=== PATIENT | female | born 1955 | race Caucasian/White ===

== ENCOUNTER 2017-10-22 23:45 | Inpatient (IN) | payer BC ==
[2017-10-23] MEDS ORDERED: Sodium Chloride 0.9% 1,000 ML IV ONE ×2 (00:25→05:21)
[2017-10-23] MEDS ORDERED: Insulin Regular, Human 100 Units/ML 3 ML Vial IV STA (00:47)
--- NOTE | 2017-10-23 01:55 | EDM.PDOC ---
ED HPI GENERAL MEDICAL PROBLEM - General Chief Complaint: Diabetic Complaint Stated Complaint: HIGH BLOOD SUGAR Time Seen by Provider: 10/23/17 00:18 Source of Information: Reports: Patient, Family () History Limitations: Reports: Altered Mental Status (Somewhat confused. Poor historian.) - History of Present Illness INITIAL COMMENTS - FREE TEXT/NARRATIVE: The patient states that she is a type II diabetic with an insulin pump. She checks her blood sugars about every other day, with normal readings approximately 180-200. She states that her blood sugars have been in the upper 300s over the past 2 weeks, and tonight was too high to count. Blood sugar was 587 on her 's glucometer. She states that she thought that her insulin pump was not working. Of note, the patient does not know how to operate or interrogate her insulin pump. She reports that she has had occasional nausea, but no emesis. She has not had a cough. No shortness of breath, but she may have experienced some dyspnea on exertion. She reports lightheadedness, and her states that she fell twice this week. She acknowledges both polydipsia and polyuria urea. She denies dysuria. No recent fever. The patient states that she has not previously had significantly elevated blood glucoses, and has never experienced diabetic ketoacidosis. Her PCP is Dr. March. Her Remodeler is Dr. Quiroz. Her Concrete Fence Builder is Dr. Banks. - Related Data Allergies Allergy/AdvReac Type Severity Reaction Status Date / Time latex Allergy Unknown Rash Verified 10/23/17 00:03 Iodinated Contrast- Oral and Allergy Difficulty Verified 10/23/17 00:03 IV Dye Breathing [Iodinated Contrast Media - IV Dye] amoxicillin trihydrate AdvReac Unknown Vomiting Verified 10/23/17 00:03 [From Augmentin] potassium clavulanate AdvReac Unknown Vomiting Verified 10/23/17 00:03 [From Augmentin] Home Meds: Home Meds Aloe Vera 25 mg PO DAILY 01/08/14 [History] DULoxetine [Cymbalta] 60 mg PO BID 01/08/14 [History] Furosemide [Lasix] 20 mg PO DAILY 01/08/14 [History] Nadolol [Naldol] 20 mg PO DAILY 01/08/14 [History] Pantoprazole [ProTONIX] 40 mg PO BID 01/08/14 [History] Spironolactone 50 mg PO DAILY 01/08/14 [History] Ursodiol 600 cap PO BID 01/08/14 [History] metroNIDAZOLE [Metronidazole] 500 mg PO DAILY 01/08/14 [History] Lyrica. 150 mg PO BID 05/12/14 [History] Nortriptyline 25 mg PO BEDTIME 05/12/14 [History] L Gasseri/B Bifidum/B Longum [[employer] Capsule] 1 cap PO DAILY 03/21 [History] Rifaximin [Xifaxan] 550 mg PO BID 01/11/15 [History] Novalog Pump 0 units INJECT ASDIRECTED 10/03/15 [History] Warfarin Sodium [Jantoven] 5 mg PO DAILY 10/23/17 [History] Past Medical History Cardiovascular History: Reports: Hypertension Gastrointestinal History: Reports: Cirrhosis, GERD, Other (See Below) ( Esophageal varices) Neurological History: Reports: Neuropathy, Diabetic Psychiatric History: Reports: Depression Endocrine/Metabolic History: Reports: Diabetes, Type II (x 2007), Obesity/BMI 30 + Hematologic History: Reports: Anticoagulation Therapy (Hypercoagulable) - Past Surgical History GI Surgical History: Reports: Appendectomy, Cholecystectomy, Hernia, Abdominal ( x 2), Lysis of Adhesions (x 3), Other (See Below) (Esophageal varices banding x 1) Female Surgical History: Reports: Section (x 1), Hysterectomy, Salpingo-Oophorectomy Social & Family History - Tobacco Use Smoking Status *Q: Former Smoker Years of Tobacco use: 26 Packs/Tins Daily: 3 Month Tobacco Last Used: Quit 2001 Second Hand Smoke Exposure: No - Caffeine Use Caffeine Use: Reports: None - Alcohol Use Alcohol Use History: No Days Per Week of Alcohol Use: 0 Number of Drinks Per Day: 0 Total Drinks Per Week: 0 - Recreational Drug Use Recreational Drug Use: No - Living Situation & Occupation Living situation: Reports: , with Spouse Occupation: Unemployed ED ROS GENERAL - Review of Systems Review Of Systems: ROS reveals no pertinent complaints other than HPI. ED EXAM GENERAL NO PERIP PULSE - Physical Exam Exam: See Below Exam Limited By: No Limitations General Appearance: Alert, WD/WN, No Apparent Distress Eye Exam: Bilateral Eye: Normal Inspection Ears: Normal External Exam, Hearing Grossly Normal Nose: Normal Inspection, No Blood Throat/Mouth: Normal Inspection, Normal Lips, Normal Voice, No Airway Compromise , Other (Interventionalists) Head: Atraumatic, Normocephalic Neck: Normal Inspection, Full Range of Motion Respiratory/Chest: No Respiratory Distress, Lungs Clear, Normal Breath Sounds, No Accessory Muscle Use Cardiovascular: Normal Peripheral Pulses, Regular Rate, Rhythm, No Gallop, No JVD, No Murmur, No Rub GI/Abdominal: Normal Bowel Sounds, Soft, Non-Tender, No Organomegaly, No Distention, No Abnormal Bruit, No Mass, Other (Obese) (Female) Exam: Deferred Rectal (Female) Exam: Deferred Back Exam: Normal Inspection, Full Range of Motion, NT Extremities: Normal Inspection, Normal Range of Motion, No Pedal Edema, Normal Capillary Refill Neurological: Alert, Oriented, No Motor/Sensory Deficits, Confused, Slow to Respond Psychiatric: Normal Affect Skin Exam: Warm, Dry, Intact, Normal Color, No Rash EKG INTERPRETATION EKG Date: 10/23/17 Time: 00:42 Rhythm: NSR Rate (Beats/Min): 70 [place]: Normal P-Wave: Present QRS: Normal ST-T: Normal QT: Normal Comparison: No Change (08/27/2016) Course - Vital Signs Last Recorded V/S: Last Vital Signs Temp 36.2 C 10/22/17 23:59 Pulse 69 10/22/17 23:59 Resp 17 10/22/17 23:59 BP 118/59 L 10/22/17 23:59 Pulse Ox 95 10/22/17 23:59 Orthostatic Blood Pressure [ 68/58 Standing] Orthostatic Blood Pressure [ 100/41 Sitting] Orthostatic Blood Pressure [ 99/39 Supine] - Orders/Labs/Meds Orders: Active Orders 24 hr Category Date Time Status Accu Check [Blood Glucose Check, Bedside] [] ONETIME Care 10/23/17 00:22 Active EKG Documentation Completion [] STAT Care 10/23/17 00:24 Active Orthostatic Vital Signs [] STAT Care 10/23/17 00:24 Active POC Glucose [Blood Glucose Check, Bedside] [] ONETIME Care 10/23/17 02:19 Active CULTURE URINE [] Stat Lab 10/23/17 02:15 Results Medication Orders Duloxetine HCl (Cymbalta) 60 mg PO BID PAUL Furosemide (Lasix) 20 mg PO DAILY [facility] Sodium Chloride (Normal Saline) 1,000 mls @ 200 mls/hr IV ASDIRECTED [facility] Last Admin: 10/23/17 07:38 Dose: 200 mls/hr Ibuprofen (Motrin) 400 mg PO Q6H PRN PRN Reason: Pain (mild 1-3) Insulin Aspart (Novolog) 0 unit SUBCUT QIDACANDBED PAUL PRN Reason: Protocol Lactulose (Cephulac) 20 gm PO TID PAUL Lorazepam (Ativan) 0.5 mg IVPUSH Q8H PRN PRN Reason: Anxiety Morphine Sulfate (Morphine) 1 mg IVPUSH Q6HR PRN PRN Reason: Pain Nadolol (Naldol) 20 mg PO DAILY PAUL Nortriptyline HCl (Nortriptyline) 25 mg PO BEDTIME PAUL Ondansetron HCl (Zofran Odt) 4 mg PO Q4H PRN PRN Reason: nausea, able to take PO Ondansetron HCl (Zofran) 4 mg IV Q4H PRN PRN Reason: Nausea/Vomiting Pantoprazole Sodium (Protonix) 40 mg PO BID [facility] Ursodiol 600mg Cap 0 each PO BID PALU Pregabalin (Lyrica) 150 mg PO BID PAUL Rifaximin (Xifaxan) 550 mg PO BID PAUL Spironolactone (Aldactone) 50 mg PO DAILY PAUL Temazepam (Restoril) 7.5 mg PO BEDTIME PRN PRN Reason: Sleep Labs: Laboratory Tests 10/23/17 10/23/17 10/23/17 Range/Units 00:18 00:18 00:18 WBC 2.19 L* (3.98-10.04) K/mm3 RBC 4.46 (3.98-5.22) M/mm3 Hgb 13.0 (11.2-15.7) gm/L Hct 38.5 (34.1-44.9) % MCV 86.3 (79.4-94.8) fl MCH 29.1 (25.6-32.2) pg MCHC 33.8 (32.2-35.5) g/dl RDW Std Deviation 53.2 H (36.4-46.3) fL Plt Count 78 L (182-369) K/mm3 MPV 11.2 (9.4-12.3) fl Neutrophils % (Manual) 57 (40-60) % Band Neutrophils % 0 (0-10) % Lymphocytes % (Manual) 36 (20-40) % Atypical Lymphs % 0 % Monocytes % (Manual) 2 (2-10) % Eosinophils % (Manual) 4 (0.7-5.8) % Basophils % (Manual) 1 (0.1-1.2) Platelet Estimate Decreased RBC Morph Comment Normal Puncture Site ABG pH (7.35-7.45) ABG pCO2 (35.0-45.0) mmHg ABG pO2 (80.0-100.0) mmHg ABG HCO3 (22.0-26.0) meq/L ABG O2 Saturation (96.0-97.0) % ABG Base Excess (-2-2.0) [place] Test A-a Gradient mmHg O2 Delivery Device Oxygen Flow Rate FiO2 (21.00-100.00) % Sodium 129 L (136-145) mEq/L Potassium 3.8 (3.5-5.1) mEq/L Chloride 94 L (98-107) mEq/L Carbon Dioxide 30 (21-32) mEq/L Anion Gap 8.8 (5-15) BUN 17 (7-18) mg/dL Creatinine 1.9 H (0.55-1.02) mg/dL Est Cr Clr Drug Dosing 31.76 mL/min Estimated GFR (MDRD) 27 (>60) mL/min BUN/Creatinine Ratio 8.9 L (14-18) Glucose 601 H* (74-106) mg/dL Lactic Acid (0.4-2.0) mmol/L Calcium 9.4 (8.5-10.1) mg/dL Magnesium 2.0 (1.8-2.4) mg/dl Total Bilirubin 3.1 H (0.2-1.0) mg/dL AST 33 (15-37) U/L ALT 25 (14-59) U/L Alkaline Phosphatase 215 H (46-116) U/L Ammonia (11-32) umol/L Total Protein 8.9 H (6.4-8.2) g/dl Albumin 3.0 L (3.4-5.0) g/dl Globulin 5.9 gm/dL Albumin/Globulin Ratio 0.5 L (1-2) Urine Color (Yellow) Urine Appearance (Clear) Urine pH (5.0-8.0) Ur Specific [place] (1.005-1.030) Urine Protein (Negative) Urine Glucose (UA) (Negative) Urine Ketones (Negative) Urine Occult Blood (Negative) Urine Nitrite (Negative) Urine Bilirubin (Negative) Urine Urobilinogen (0.2-1.0) Ur Leukocyte Esterase (Negative) Urine RBC (0-5) /hpf Urine WBC (0-5) /hpf Ur Epithelial Cells (0-5) /hpf Urine Bacteria (FEW) /hpf Urine Mucus (FEW) /hpf Ketones 0.27 (0.0-0.3) mM 10/23/17 10/23/17 10/23/17 Range/Units 00:50 00:54 02:15 WBC (3.98-10.04) K/mm3 RBC (3.98-5.22) M/mm3 Hgb (11.2-15.7) gm/L Hct (34.1-44.9) % MCV (79.4-94.8) fl MCH (25.6-32.2) pg MCHC (32.2-35.5) g/dl RDW Std Deviation (36.4-46.3) fL Plt Count (182-369) K/mm3 MPV (9.4-12.3) fl Neutrophils % (Manual) (40-60) % Band Neutrophils % (0-10) % Lymphocytes % (Manual) (20-40) % Atypical Lymphs % % Monocytes % (Manual) (2-10) % Eosinophils % (Manual) (0.7-5.8) % Basophils % (Manual) (0.1-1.2) Platelet Estimate RBC Morph Comment Puncture Site Lt radial ABG pH 7.43 (7.35-7.45) ABG pCO2 42.7 (35.0-45.0) mmHg ABG pO2 59.0 L (80.0-100.0) mmHg ABG HCO3 28.0 H (22.0-26.0) meq/L ABG O2 Saturation 92.3 L (96.0-97.0) % ABG Base Excess 3.7 H (-2-2.0) [place] Test Positive A-a Gradient 22 mmHg O2 Delivery Device Room air Oxygen Flow Rate 0.0 FiO2 0.21 L (21.00-100.00) % Sodium (136-145) mEq/L Potassium (3.5-5.1) mEq/L Chloride (98-107) mEq/L Carbon Dioxide (21-32) mEq/L Anion Gap (5-15) BUN (7-18) mg/dL Creatinine (0.55-1.02) mg/dL Est Cr Clr Drug Dosing mL/min Estimated GFR (MDRD) (>60) mL/min BUN/Creatinine Ratio (14-18) Glucose (74-106) mg/dL Lactic Acid 1.8 (0.4-2.0) mmol/L Calcium (8.5-10.1) mg/dL Magnesium (1.8-2.4) mg/dl Total Bilirubin (0.2-1.0) mg/dL AST (15-37) U/L ALT (14-59) U/L Alkaline Phosphatase (46-116) U/L Ammonia (11-32) umol/L Total Protein (6.4-8.2) g/dl Albumin (3.4-5.0) g/dl Globulin gm/dL Albumin/Globulin Ratio (1-2) Urine Color Yellow (Yellow) Urine Appearance Clear (Clear) Urine pH 6.5 (5.0-8.0) Ur Specific [place] 1.015 (1.005-1.030) Urine Protein Negative (Negative) Urine Glucose (UA) 2+ H (Negative) Urine Ketones Negative (Negative) Urine Occult Blood Negative (Negative) Urine Nitrite Positive H (Negative) Urine Bilirubin Negative (Negative) Urine Urobilinogen 1.0 (0.2-1.0) Ur Leukocyte Esterase Negative (Negative) Urine RBC Not seen (0-5) /hpf Urine WBC 0-5 (0-5) /hpf Ur Epithelial Cells 0-5 (0-5) /hpf Urine Bacteria Moderate H (FEW) /hpf Urine Mucus Not seen (FEW) /hpf Ketones (0.0-0.3) mM 10/23/17 10/23/17 10/23/17 Range/Units 02:28 02:28 04:20 WBC (3.98-10.04) K/mm3 RBC (3.98-5.22) M/mm3 Hgb (11.2-15.7) gm/L Hct (34.1-44.9) % MCV (79.4-94.8) fl MCH (25.6-32.2) pg MCHC (32.2-35.5) g/dl RDW Std Deviation (36.4-46.3) fL Plt Count (182-369) K/mm3 MPV (9.4-12.3) fl Neutrophils % (Manual) (40-60) % Band Neutrophils % (0-10) % Lymphocytes % (Manual) (20-40) % Atypical Lymphs % % Monocytes % (Manual) (2-10) % Eosinophils % (Manual) (0.7-5.8) % Basophils % (Manual) (0.1-1.2) Platelet Estimate RBC Morph Comment Puncture Site ABG pH (7.35-7.45) ABG pCO2 (35.0-45.0) mmHg ABG pO2 (80.0-100.0) mmHg ABG HCO3 (22.0-26.0) meq/L ABG O2 Saturation (96.0-97.0) % ABG Base Excess (-2-2.0) [place] Test A-a Gradient mmHg O2 Delivery Device Oxygen Flow Rate FiO2 (21.00-100.00) % Sodium (136-145) mEq/L Potassium (3.5-5.1) mEq/L Chloride (98-107) mEq/L Carbon Dioxide (21-32) mEq/L Anion Gap (5-15) BUN (7-18) mg/dL Creatinine (0.55-1.02) mg/dL Est Cr Clr Drug Dosing mL/min Estimated GFR (MDRD) (>60) mL/min BUN/Creatinine Ratio (14-18) Glucose 386 H 421 H (74-106) mg/dL Lactic Acid (0.4-2.0) mmol/L Calcium (8.5-10.1) mg/dL Magnesium (1.8-2.4) mg/dl Total Bilirubin (0.2-1.0) mg/dL AST (15-37) U/L ALT (14-59) U/L Alkaline Phosphatase (46-116) U/L Ammonia 65 H (11-32) umol/L Total Protein (6.4-8.2) g/dl Albumin (3.4-5.0) g/dl Globulin gm/dL Albumin/Globulin Ratio (1-2) Urine Color (Yellow) Urine Appearance (Clear) Urine pH (5.0-8.0) Ur Specific [place] (1.005-1.030) Urine Protein (Negative) Urine Glucose (UA) (Negative) Urine Ketones (Negative) Urine Occult Blood (Negative) Urine Nitrite (Negative) Urine Bilirubin (Negative) Urine Urobilinogen (0.2-1.0) Ur Leukocyte Esterase (Negative) Urine RBC (0-5) /hpf Urine WBC (0-5) /hpf Ur Epithelial Cells (0-5) /hpf Urine Bacteria (FEW) /hpf Urine Mucus (FEW) /hpf Ketones (0.0-0.3) mM Meds: Medications Generic Name Dose Route Start Last Admin Trade Name Freq PRN Reason Stop Dose Admin Duloxetine HCl 60 mg 10/23/17 09:00 Cymbalta PO BID PAUL Furosemide 20 mg 10/23/17 09:00 Lasix PO DAILY [facility] Sodium Chloride 1,000 mls @ 200 mls/hr 10/23/17 06:45 10/23/17 07:38 Normal Saline IV 200 mls/hr ASDIRECTED PAUL Administration Ibuprofen 400 mg 10/23/17 06:24 Motrin PO Q6H PRN Pain (mild 1-3) Insulin Aspart 0 unit 10/23/17 07:45 Novolog SUBCUT QIDACANDBED [facility] Protocol Lactulose 20 gm 10/23/17 09:00 Cephulac PO TID PAUL Lorazepam 0.5 mg 10/23/17 07:22 Ativan IVPUSH Q8H PRN Anxiety Morphine Sulfate 1 mg 10/23/17 07:22 Morphine IVPUSH Q6HR PRN Pain Nadolol 20 mg 10/23/17 09:00 Naldol PO DAILY [facility] Nortriptyline HCl 25 mg 10/23/17 21:00 Nortriptyline PO BEDTIME PAUL Ondansetron HCl 4 mg 10/23/17 06:24 Zofran Odt PO Q4H PRN nausea, able to take PO Ondansetron HCl 4 mg 10/23/17 06:24 Zofran IV Q4H PRN Nausea/Vomiting Pantoprazole Sodium 40 mg 10/23/17 09:00 Protonix PO BID [facility] Ursodiol 600mg Cap 0 each 10/23/17 09:00 PO BID PAUL Pregabalin 150 mg 10/23/17 09:00 Lyrica PO BID PAUL Rifaximin 550 mg 10/23/17 09:00 Xifaxan PO BID PAUL Spironolactone 50 mg 10/23/17 09:00 Aldactone PO DAILY PAUL Temazepam 7.5 mg 10/23/17 06:24 Restoril PO BEDTIME PRN Sleep Discontinued Medications Generic Name Dose Route Start Last Admin Trade Name Freq PRN Reason Stop Dose Admin Sodium Chloride 1,000 mls @ 999 mls/hr 10/23/17 00:25 10/23/17 00:53 Normal Saline IV 10/23/17 01:25 999 mls/hr ONETIME ONE Administration Sodium Chloride 1,000 mls @ 999 mls/hr 10/23/17 05:21 10/23/17 05:30 Normal Saline IV 10/23/17 06:21 999 mls/hr ONETIME ONE Administration Insulin Human Regular 10 unit 10/23/17 00:47 10/23/17 00:59 Humulin R IV 10/23/17 00:48 10 unit ONETIME STA Administration Insulin Human Regular 5 unit 10/23/17 05:20 10/23/17 05:30 Humulin R IV 10/23/17 05:21 5 units ONETIME ONE Administration Lactulose 20 gm 10/23/17 03:02 10/23/17 03:49 Cephulac PO 10/23/17 03:03 20 gm ONETIME ONE Administration - Re-Assessments/Exams Free Text/Narrative Re-Assessment/Exam: 10/23/17 01:54 Two-view chest radiograph appears to be grossly normal. Cardiac silhouette is within normal limits. No pulmonary vascular congestion. No pleural effusions. No focal infiltrate. No pneumothorax. Formal read per the Radiologist pending. 10/23/17 02:04 The patient is orthostatic. IV fluid has already been ordered. 10/23/17 03:04 The patient's ammonia level is elevated at 65. This is the highest level she has had on record. I have ordered lactulose 20 mg po. The patient's WBC count is depressed at 2.19, with platelets depressed at 78K. These are both likely due to her cirrhosis. The patient's sodium returns depressed at 129, however, it corrects to 135 due to a blood sugar of 601. The patient's creatinine is elevated at 1.9. Reviewing prior lab results, I see that her creatinine has been steadily increasing. This could be due to diabetic nephropathy, but could also be due to hepatorenal syndrome. 10/23/17 03:16 The patient's blood glucose at 00:18 was 601. At 02:28, it is down to 386. I have asked the nurse to discontinue (or not start) the insulin drip. The patient's urinalysis demonstrates nitrate positive and moderate bacteria, but no WBCs or leukocyte esterase. It is unclear if this represents a urinary tract infection. I have ordered a urine culture, but I am not going to start her on antibiotics at this time, as she has no urinary symptoms. 10/23/17 03:28 Test results discussed with the patient and her . I'm recommending admission to the hospital for treatment of hyperglycemia and hepatic encephalopathy. The patient and her are agreeable. Case discussed with Dr. Byrd at 03:22. She accepts the patient for admission to the medical floor. Departure - Departure Time of Disposition: 03:23 Disposition: Admitted As Inpatient 68 Condition: Fair Clinical Impression: Hepatic encephalopathy Hyperglycemia due to type 2 diabetes mellitus Qualifiers: Diabetes mellitus intermediate manager insulin use: with correction use Qualified Code(s): E11.65 - Type 2 diabetes mellitus with hyperglycemia - Discharge Information - My Orders Last 24 Hours: My Active Orders 10/23/17 00:22 Accu Check [Blood Glucose Check, Bedside] [RC] ONETIME 10/23/17 00:24 EKG Documentation Completion [RC] STAT Orthostatic Vital Signs [RC] STAT 10/23/17 02:15 CULTURE URINE [RM] Stat 10/23/17 02:19 POC Glucose [Blood Glucose Check, Bedside] [RC] ONETIME - Assessment/Plan Last 24 Hours: My Active Orders 10/23/17 00:22 Accu Check [Blood Glucose Check, Bedside] [RC] ONETIME 10/23/17 00:24 EKG Documentation Completion [RC] STAT Orthostatic Vital Signs [RC] STAT 10/23/17 02:15 CULTURE URINE [RM] Stat 10/23/17 02:19 POC Glucose [Blood Glucose Check, Bedside] [RC] ONETIME
[2017-10-23] MEDS ORDERED: Lactulose Soln 10 GM/15 ML 30 ML UD Cup PO ONE (03:02)
[2017-10-23] MEDS ORDERED: Insulin Regular, Human 100 Units/ML 3 ML Vial IV ONE (05:20)
[2017-10-23] MEDS ORDERED: Ibuprofen 400 MG Tab PO PRN (06:24)
[2017-10-23] MEDS ORDERED: Ondansetron 4 MG Tab.DIS PO PRN (06:24)
[2017-10-23] MEDS ORDERED: Ondansetron 4 MG/2 ML SDV IV PRN (06:24)
[2017-10-23] MEDS ORDERED: Temazepam 7.5 MG Cap PO PRN (06:24)
--- NOTE | 2017-10-23 06:36 | PCM.HP ---
H&P History of Present Illness - General Date of Service: 10/23/17 Admit Problem/Dx: Admission Diagnosis/Problem Admission Diagnosis/Problem Hyperglycemia Source of Information: Patient, Other (ED notes) History Limitations: Reports: Altered Mental Status (converses but is mildly confused--intermittent) - History of Present Illness Initial Comments - Free Text/Narative: Narcisa is a 62yo female admitted in isotope technologist hours from ED for hyperglycemia with blood glucose >600 upon initial presentation to ED. She also has cirrhosis of the liver, PRATT etiology stated per patient since the s, with encephalopathy noted in ED, ammonia level was 65. She denies recent illness, no increased coughing, SOB, F/C/S, no N/V/D. She does have rt sided abd pain most days that has not worsened over the past week that her blood sugars have been elevated. She has had increased falls at home the past week, attributes it to peripheral neuropathy in her legs. is her care provider at home. Patient has insulin pump but she states was not working; she also admits that she is not sure how to troubleshoot her pump if needed. She see's Dr. March at [facility] for primary care and Zarina March for CDE. She see's EVITA Santos in [place]- she is unsure of her last visit- usually sees him every 6 months and thinks she may be due to see him "in a couple of weeks" but is not sure if appt is scheduled. She is very slow to respond. When asked if she feels confused and can't find her words she states "yes, I feel like that a lot lately". Does admit that she does not take her lactulose as she does not like to have loose stools. She is tired as she did not sleep much with isotope technologist admission. She is hungry and eating breakfast. Patient is Full Code status PCP: Dr. March GI: Dr. Banks - Related Data Allergies/Adverse Reactions: Allergies Allergy/AdvReac Type Severity Reaction Status Date / Time latex Allergy Unknown Rash Verified 10/23/17 00:03 Iodinated Contrast- Oral and Allergy Difficulty Verified 10/23/17 00:03 IV Dye Breathing [Iodinated Contrast Media - IV Dye] amoxicillin trihydrate AdvReac Unknown Vomiting Verified 10/23/17 00:03 [From Augmentin] potassium clavulanate AdvReac Unknown Vomiting Verified 10/23/17 00:03 [From Augmentin] Home Medications: Home Meds Aloe Vera 25 mg PO DAILY 01/08/14 [History] DULoxetine [Cymbalta] 60 mg PO BID 01/08/14 [History] Furosemide [Lasix] 20 mg PO DAILY 01/08/14 [History] Nadolol [Naldol] 20 mg PO DAILY 01/08/14 [History] Pantoprazole [ProTONIX] 40 mg PO BID 01/08/14 [History] Spironolactone 50 mg PO DAILY 01/08/14 [History] Ursodiol 600 cap PO BID 01/08/14 [History] metroNIDAZOLE [Metronidazole] 500 mg PO DAILY 01/08/14 [History] Lyrica. 150 mg PO BID 05/12/14 [History] Nortriptyline 25 mg PO BEDTIME 05/12/14 [History] L Gasseri/B Bifidum/B Longum [[employer] Capsule] 1 cap PO DAILY 03/21 [History] Rifaximin [Xifaxan] 550 mg PO BID 01/11/15 [History] Novalog Pump 0 units INJECT ASDIRECTED 10/03/15 [History] Warfarin Sodium [Jantoven] 5 mg PO DAILY 10/23/17 [History] Past Medical History Cardiovascular History: Reports: Blood Clots/VTE/DVT, Hypertension Respiratory History: Reports: SOB Gastrointestinal History: Reports: GERD, Other (See Below) Other Gastrointestinal History: cirrohis of the liver Genitourinary History: Reports: Urinary Incontinence Musculoskeletal History: Reports: Arthritis, Fracture Other Neuro History: issues with remembering Psychiatric History: Reports: Depression Endocrine/Metabolic History: Reports: Diabetes, Type II Hematologic History: Reports: Anemia - Infectious Disease History Infectious Disease History: Reports: Chicken Pox, Measles - Past Surgical History Cardiovascular Surgical History: Reports: None GI Surgical History: Reports: Appendectomy, Cholecystectomy Female Surgical History: Reports: Hysterectomy Endocrine Surgical History: Reports: None Neurological Surgical History: Reports: None Musculoskeletal Surgical History: Reports: None Social & Family History - Family History Family Medical History: Noncontributory - Tobacco Use Smoking Status *Q: Former Smoker Years of Tobacco use: 28 Packs/Tins Daily: 2 Used Tobacco, but Quit: Yes Month Tobacco Last Used: 09/2001 Second Hand Smoke Exposure: No - Caffeine Use Caffeine Use: Reports: None - Alcohol Use Days Per Week of Alcohol Use: 0 Number of Drinks Per Day: 0 Total Drinks Per Week: 0 - Recreational Drug Use Recreational Drug Use: No H&P Review of Systems - Review of Systems: Review Of Systems: See Below General: Reports: No Symptoms, Malaise, Weakness, Fatigue. Denies: Fever, Chills, Weight Gain HEENT: Reports: No Symptoms. Denies: Headaches Pulmonary: Reports: No Symptoms. Denies: Shortness of Breath, Cough Cardiovascular: Reports: No Symptoms. Denies: Chest Pain, Palpitations Gastrointestinal: Reports: Abdominal Pain (Rt sided; no worse than usual baseline right sided abd pain). Denies: Black Stool, Bloody Stool, Diarrhea ( does have diarrhea if she takes lactulose- she avoids taking it to avoid loose stools.), Hematochezia, Melena, Vomiting Genitourinary: Reports: No Symptoms Psychiatric: Reports: Confusion (admits is intermittently confused- worsening over the last week) Neurological: Reports: Confusion, Numbness (feet), Paresthesia (feet), Tingling (feet). Denies: Dizziness, Headache Hematologic/Lymphatic: Reports: Anemia (in the past) Exam - Exam Exam: See Below - Vital Signs Vital Signs: Last Vital Signs Temp 97.2 F 10/22/17 23:59 Pulse 69 10/22/17 23:59 Resp 17 10/22/17 23:59 BP 118/59 L 10/22/17 23:59 Pulse Ox 95 10/22/17 23:59 Weight: 220 lb 14.4 oz - Exam Quality Assessment: DVT Prophylaxis General: Alert, Oriented (A&O x 3), Cooperative HEENT: Conjunctiva Clear, EOMI, Hearing Intact, Scleral Icterus (mild) Neck: Supple Lungs: Clear to Auscultation, Normal Respiratory Effort, Decreased Breath Sounds (bases) Cardiovascular: Regular Rate, Regular Rhythm GI/Abdominal Exam: Normal Bowel Sounds, Soft, Tender (generalized upper abdomen , worse to rt side), Other (large/obese). No: Guarding, Rigid, Rebound (Female) Exam: Deferred Rectal (Female) Exam: Deferred Back Exam: Normal Inspection Extremities: Normal Inspection, Normal Capillary Refill, Other (evidence of venous insufficency changes to LE bilat, dark brown patches to shins bilaterally ; minimal trace edema to ankles) Peripheral Pulses: 1+: Dorsalis Pedis (L), Dorsalis Pedis (R) Skin: Warm, Dry, Intact, Other (mild icterus generalized) Neurological: Normal Speech (slow to respond), Normal Tone Neuro Extensive - Mental Status: Alert, Oriented x3, Normal Mood/Affect, Normal Cognition, Memory Loss-Recent Events, Slow Response to Commands Psychiatric: Alert, Normal Affect, Normal Mood, Other (pleasant, answers all questions appropriately, slow to respond and does not know some important/ pertinent information---like how to run her insulin pump, what her A1C is, when she saw or is to see GI next. ) - Patient Data Result Diagrams: 10/23/17 07:20 10/23/17 07:20 *Q Meaningful Use (ADM) - VTE *Q VTE Criteria *Q: - Stroke *Q Stroke Criteria *Q: - AMI *Q AMI Criteria *Q: - Problem List (1) Hyperglycemia due to type 2 diabetes mellitus SNOMED Code(s): 166135959364400 ICD Code: E11.65 - TYPE 2 DIABETES MELLITUS WITH HYPERGLYCEMIA Status: Acute Priority: High Current Visit: Yes Qualifiers: Diabetes mellitus long term acute care registered nurse insulin use: with long term acute care registered nurse use Qualified Code( s): E11.65 - Type 2 diabetes mellitus with hyperglycemia; Z79.4 - termite renewal inspector ( current) use of insulin; Z79.4 - termite renewal inspector (current) use of insulin; Z79.4 - termite renewal inspector (current) use of insulin; Z79.4 - termite renewal inspector (current) use of insulin (2) Hepatic encephalopathy SNOMED Code(s): 10238954 ICD Code: K72.90 - HEPATIC FAILURE, UNSPECIFIED WITHOUT COMA Status: Acute Priority: High Current Visit: Yes (3) CKD (chronic kidney disease) SNOMED Code(s): 657023900 ICD Code: N18.9 - CHRONIC KIDNEY DISEASE, UNSPECIFIED Status: Chronic Priority: Medium Current Visit: Yes (4) Medical non-compliance SNOMED Code(s): 567040837 ICD Code: Z91.19 - PATIENT'S NONCOMPLIANCE W OTH MEDICAL TREATMENT AND REGIMEN Status: Acute Priority: High Current Visit: Yes Problem List Initiated/Reviewed/Updated: Yes Orders Last 24hrs: Active Orders 24 hr Category Date Time Status Patient Status [ADT] Routine ADT 10/23/17 06:24 Ordered Accu Check [Blood Glucose Check, Bedside] [RC] Care 10/23/17 06:22 Ordered WITHMEALSANDBED Ambulate [RC] QID Care 10/23/17 06:24 Ordered Antiembolic Devices [RC] PER UNIT ROUTINE Care 10/23/17 06:27 Ordered Height and Weight [RC] DAILY Care 10/23/17 06:24 Ordered Oxygen Therapy [RC] PRN Care 10/23/17 06:24 Ordered Up With Assistance [RC] ASDIRECTED Care 10/23/17 06:24 Ordered VTE/DVT Education [RC] PER UNIT ROUTINE Care 10/23/17 06:24 Ordered Vital Signs [RC] Q4H Care 10/23/17 06:24 Ordered Consult to Case Management [CONS] Routine Cons 10/23/17 06:24 Ordered Consult to Diabetic Nurse Specialist [CONS] Routine Cons 10/23/17 06:22 Active Consult to Vice President [employer] [CONS] Routine Cons 10/23/17 06:22 Active [employer] Diet [DIET] Diet 10/23/17 Breakfast Ordered A1C [GLYCOSYLATED HEMOGLOBIN,HGBA1C] [CHEM] Routine Lab 10/23/17 06:23 Ordered C-REACTIVE PROTEIN [CHEM] DAILY Lab 10/23/17 06:20 Ordered C-REACTIVE PROTEIN [CHEM] DAILY Lab 10/24/17 06:20 Ordered C-REACTIVE PROTEIN [CHEM] DAILY Lab 10/25/17 06:20 Ordered C-REACTIVE PROTEIN [CHEM] DAILY Lab 10/26/17 06:20 Ordered CBC WITH AUTO DIFF [HEME] DAILY Lab 10/23/17 06:20 Ordered CBC WITH AUTO DIFF [HEME] DAILY Lab 10/24/17 06:20 Ordered CBC WITH AUTO DIFF [HEME] DAILY Lab 10/25/17 06:20 Ordered CBC WITH AUTO DIFF [HEME] DAILY Lab 10/26/17 06:20 Ordered COMPREHENSIVE METABOLIC PN,CMP [CHEM] DAILY Lab 10/23/17 06:20 Ordered COMPREHENSIVE METABOLIC PN,CMP [CHEM] DAILY Lab 10/24/17 06:20 Ordered COMPREHENSIVE METABOLIC PN,CMP [CHEM] DAILY Lab 10/25/17 06:20 Ordered COMPREHENSIVE METABOLIC PN,CMP [CHEM] DAILY Lab 10/26/17 06:20 Ordered INFLUENZA A+B AG SCREEN [RM] Routine Lab 10/23/17 06:21 Ordered INR,PT,PROTHROMBIN TIME [COAG] DAILY Lab 10/23/17 06:28 Ordered INR,PT,PROTHROMBIN TIME [COAG] DAILY Lab 10/24/17 06:28 Ordered INR,PT,PROTHROMBIN TIME [COAG] DAILY Lab 10/25/17 06:28 Ordered INR,PT,PROTHROMBIN TIME [COAG] DAILY Lab 10/26/17 06:28 Ordered MAGNESIUM [CHEM] DAILY Lab 10/23/17 06:20 Ordered MAGNESIUM [CHEM] DAILY Lab 10/24/17 06:20 Ordered MAGNESIUM [CHEM] DAILY Lab 10/25/17 06:20 Ordered MAGNESIUM [CHEM] DAILY Lab 10/26/17 06:20 Ordered MYCOPLASMA PNEUMONIAE IGM AB [CHEM] Routine Lab 10/23/17 06:19 Ordered STREP PNEUMONIAE ANTIGEN [MREF] Routine Lab 10/23/17 06:19 Ordered DULoxetine [Cymbalta] Med 10/23/17 09:00 Ordered 60 mg PO BID Furosemide [Lasix] Med 10/23/17 09:00 Ordered 20 mg PO DAILY Ibuprofen [Motrin] Med 10/23/17 06:24 Ordered 400 mg PO Q6H PRN Lactulose [Cephulac] Med 10/23/17 09:00 Ordered 20 gm PO TID Lyrica. Med 10/23/17 09:00 Ordered 150 mg PO BID Nadolol [Naldol] Med 10/23/17 09:00 Ordered 20 mg PO DAILY Nortriptyline Med 10/23/17 21:00 Ordered 25 mg PO BEDTIME Ondansetron [Zofran ODT] Med 10/23/17 06:24 Ordered 4 mg PO Q4H PRN Ondansetron [Zofran] Med 10/23/17 06:24 Ordered 4 mg IV Q4H PRN Pantoprazole [ProTONIX] Med 10/23/17 09:00 Ordered 40 mg PO BID Rifaximin [Xifaxan] Med 10/23/17 09:00 Ordered 550 mg PO BID Spironolactone [Spironolactone] Med 10/23/17 09:00 Ordered 50 mg PO DAILY Temazepam [Restoril] Med 10/23/17 06:24 Ordered 7.5 mg PO BEDTIME PRN Ursodiol Med 10/23/17 09:00 Ordered 600 cap PO BID Sequential Compression Device [OM.PC] Per Unit Routine Oth 10/23/17 06:26 Ordered Resuscitation Status Routine Resus Stat 10/23/17 06:24 Ordered Medication Orders Duloxetine HCl (Cymbalta) 60 mg PO BID PAUL Furosemide (Lasix) 20 mg PO DAILY PAUL Insulin Human Regular 100 unit (/ Sodium Chloride) 100 mls @ 10.02 mls/hr IV TITRATE PAUL; 0.1 UNITS/KG/HR PRN Reason: Protocol Ibuprofen (Motrin) 400 mg PO Q6H PRN PRN Reason: Pain (mild 1-3) Lactulose (Cephulac) 20 gm PO TID PAUL Non-Formulary Medication (Lyrica.) 150 mg PO BID PAUL Non-Formulary Medication (Nadolol [Naldol]) 20 mg PO DAILY PAUL Non-Formulary Medication (Spironolactone [Spironolactone]) 50 mg PO DAILY PAUL Non-Formulary Medication (Ursodiol) 600 cap PO BID PAUL Nortriptyline HCl (Nortriptyline) 25 mg PO BEDTIME PAUL Pantoprazole Sodium (Protonix) 40 mg PO BID PAUL Rifaximin (Xifaxan) 550 mg PO BID PAUL Assessment/Plan Comment:: I/P: Hyperglycemia, type 2 DM--not DKA -Patient with insulin pump that "was not working" -Insulin given in ED with improvement of sugars to 400's. No need for insulin drip -Accuchecks AC/HS with SSI -Continue IVF fluids- decrease rate -Diabetic diet -CDE/Dietitian consults for DM and cirrhosis -A1C this morning-- 9.9 -R/O other causes/infectious etiology- UC pending, order mycoplasma, s.pneumo and influenza screen -TSH and Troponin also to be obtained Cirrhosis of the liver with acute encephalopathy -Ammonia level 65 in ED, one dose of lactulose given in ED -Lactulose TID -Recheck ammonia level tomorrow -Follow LFT's -Cont Rifaxin/home meds -Follows Dr. Banks for GI- recommend follow up after discharge -Patient states cirrhosis is from "PRATT" and has had this since the " ". CKD -Follow renal labs -Renal dose all meds Multiple falls at home -PT/OT -TSH -Hx of PN- recommend eval as outpatient with PCP Other: GI prophylax- home PPI BID DVT prophylax- on warfarin for PE Hx, cont and follow daily INR, SCD's and ambulation Resume some home meds Ambulate- PT/OT for balance/strengthening CYBER SECURITY MANAGER for cog eval I do not feel patient is safe to have insulin pump; she has cirrhosis as above with what sounds like intermittent encephalopathic changes, is noncompliant with lactulose therapy for this. I feel she is too high of risk with mental status changes for this to be safe. Will order CYBER SECURITY MANAGER consult with cognitive evaluation for further direction. CM for assist with DC planning-- LOS ? 2-3 days to gain control of sugars and resolution of encephalopathy Patient is Full Code status PCP is Dr. March with [facility]
[2017-10-23] MEDS ORDERED: Morphine 4 MG/ML Syringe IVPUSH PRN (07:22)
[2017-10-23] MEDS ORDERED: LORazepam 2 MG/ML SDV IVPUSH PRN (07:22)
[2017-10-23] MEDS: Sodium Chloride 0.9% 1,000 ML IV SCH ×4 (07:38→23:28)
--- NOTE | 2017-10-23 07:51 | CR ---
Chest: Two views of the chest were obtained. Comparison: Prior chest x-ray of 08/27/16. Slight scarring is seen within the left base. Lungs otherwise are clear. Heart size is normal. Mild tortuosity of the thoracic aorta is seen. Bony structures are within normal limits for the patient's age. Impression: 1. Nothing acute is seen on two-view chest x-ray. No significant change is seen from previous study. Diagnostic code #2
[2017-10-23] MEDS ORDERED: Potassium Chloride 20 MEQ Tab.ER PO ONE (08:30)
[2017-10-23] MEDS: Insulin Aspart 100 Units/ML 3 ML Pen SUBCUT SCH ×4 (09:56→23:29)
[2017-10-23] MEDS: Pregabalin 75 MG Cap PO SCH ×2 (10:00→22:12)
[2017-10-23] MEDS: DULoxetine 30 MG Cap PO SCH ×2 (10:00→22:10)
[2017-10-23] MEDS: Lactulose Soln 10 GM/15 ML 30 ML UD Cup PO SCH ×3 (10:00→22:08)
[2017-10-23] MEDS: Rifaximin 550 MG Tab PO SCH ×2 (10:00→22:08)
[2017-10-23] MEDS: Pantoprazole 40 MG Tab.CR PO SCH ×2 (10:00→22:11)
[2017-10-23] MEDS: URSODIOL 600 MG PO SCH ×2 (10:01→22:47)
[2017-10-23] MEDS: Furosemide 20 MG Tab PO SCH (10:05)
[2017-10-23] MEDS: Spironolactone 25 MG Tab PO SCH (10:05)
[2017-10-23] MEDS ORDERED: Warfarin 5 MG Tab PO SCH (18:00)
[2017-10-23] MEDS: Nortriptyline 25 MG Cap PO SCH (22:10)
[2017-10-24] MEDS: Insulin Aspart 100 Units/ML 3 ML Pen SUBCUT SCH ×4 (08:44→21:57)
[2017-10-24] MEDS: Pregabalin 75 MG Cap PO SCH ×2 (08:46→21:56)
[2017-10-24] MEDS: Spironolactone 25 MG Tab PO SCH (08:47)
[2017-10-24] MEDS: DULoxetine 30 MG Cap PO SCH ×2 (08:47→21:56)
[2017-10-24] MEDS: Pantoprazole 40 MG Tab.CR PO SCH ×2 (08:47→21:57)
[2017-10-24] MEDS: Rifaximin 550 MG Tab PO SCH ×2 (08:47→21:57)
[2017-10-24] MEDS: Lactulose Soln 10 GM/15 ML 30 ML UD Cup PO SCH ×3 (08:48→21:56)
[2017-10-24] MEDS: Furosemide 20 MG Tab PO SCH (08:48)
[2017-10-24] MEDS: URSODIOL 600 MG PO SCH ×2 (08:51→22:04)
[2017-10-24] MEDS: Sodium Chloride 0.9% 1,000 ML IV SCH (10:35)
[2017-10-24] MEDS ORDERED: Potassium Chloride 20 MEQ Tab.ER PO ONE (10:43)
[2017-10-24] MEDS ORDERED: Magnesium Sulfate/Water 2 GM in Premix Bag 1 BAG IV ONE (10:44)
[2017-10-24] MEDS: Atenolol 25 MG Tab PO SCH ×2 (14:12→14:15)
--- NOTE | 2017-10-24 15:12 | PCM.PN ---
- General Info Date of Service: 10/24/17 Functional Status: Reports: Ambulating, Urinating - Review of Systems General: Reports: Weakness HEENT: Reports: No Symptoms Pulmonary: Reports: No Symptoms Cardiovascular: Reports: No Symptoms Gastrointestinal: Reports: No Symptoms Genitourinary: Reports: No Symptoms Musculoskeletal: Reports: No Symptoms Skin: Reports: No Symptoms Neurological: Reports: No Symptoms Psychiatric: Reports: No Symptoms - Patient Data Vitals - Most Recent: Last Vital Signs Temp 36.9 C 10/24/17 14:00 Pulse 64 10/24/17 14:15 Resp 16 10/24/17 14:00 BP 118/54 L 10/24/17 14:15 Pulse Ox 94 L 10/24/17 14:12 Weight - Most Recent: 101.605 kg I&O - Last 24 Hours: Intake & Output 10/24/17 10/24/17 10/24/17 06:59 14:59 22:59 Intake Total 2593 200 Output Total 600 Balance 1992 200 Lab Results Last 24 Hours: Laboratory Results - last 24 hr 10/23/17 10/23/17 10/24/17 Range/Units 17:46 22:28 06:15 WBC 2.08 L* (3.98-10.04) K/mm3 RBC 3.82 L (3.98-5.22) M/mm3 Hgb 11.2 (11.2-15.7) gm/L Hct 33.7 L (34.1-44.9) % MCV 88.2 (79.4-94.8) fl MCH 29.3 (25.6-32.2) pg MCHC 33.2 (32.2-35.5) g/dl RDW Std Deviation 53.5 H (36.4-46.3) fL Plt Count 65 L (182-369) K/mm3 MPV 11.5 (9.4-12.3) fl Neut % (Auto) 43.7 (34.0-71.1) % Lymph % (Auto) 39.4 (19.3-51.7) % [place] % (Auto) 8.2 (4.7-12.5) % Eos % (Auto) 7.7 H (0.7-5.8) Baso % (Auto) 1.0 (0.1-1.2) % Neut # (Auto) 0.91 L (1.56-6.13) K/mm3 Lymph # (Auto) 0.82 L (1.18-3.74) K/mm3 [place] # (Auto) 0.17 L (0.24-0.36) K/mm3 Eos # (Auto) 0.16 (0.04-0.36) K/mm3 Baso # (Auto) 0.02 (0.01-0.08) K/mm3 Manual Slide Review Abnormal smear PT (8.0-13.0) SECONDS INR Sodium (136-145) mEq/L Potassium (3.5-5.1) mEq/L Chloride (98-107) mEq/L Carbon Dioxide (21-32) mEq/L Anion Gap (5-15) BUN (7-18) mg/dL Creatinine (0.55-1.02) mg/dL Est Cr Clr Drug Dosing mL/min Estimated GFR (MDRD) (>60) mL/min BUN/Creatinine Ratio (14-18) Glucose 412 H (74-106) mg/dL POC Glucose 385 H (70-105) mg/dL Calcium (8.5-10.1) mg/dL Magnesium (1.8-2.4) mg/dl Total Bilirubin (0.2-1.0) mg/dL AST (15-37) U/L ALT (14-59) U/L Alkaline Phosphatase (46-116) U/L Ammonia (11-32) umol/L C-Reactive Protein (<1.0) mg/dL Total Protein (6.4-8.2) g/dl Albumin (3.4-5.0) g/dl Globulin gm/dL Albumin/Globulin Ratio (1-2) 10/24/17 10/24/17 10/24/17 Range/Units 06:15 06:15 06:15 WBC (3.98-10.04) K/mm3 RBC (3.98-5.22) M/mm3 Hgb (11.2-15.7) gm/L Hct (34.1-44.9) % MCV (79.4-94.8) fl MCH (25.6-32.2) pg MCHC (32.2-35.5) g/dl RDW Std Deviation (36.4-46.3) fL Plt Count (182-369) K/mm3 MPV (9.4-12.3) fl Neut % (Auto) (34.0-71.1) % Lymph % (Auto) (19.3-51.7) % [place] % (Auto) (4.7-12.5) % Eos % (Auto) (0.7-5.8) Baso % (Auto) (0.1-1.2) % Neut # (Auto) (1.56-6.13) K/mm3 Lymph # (Auto) (1.18-3.74) K/mm3 [place] # (Auto) (0.24-0.36) K/mm3 Eos # (Auto) (0.04-0.36) K/mm3 Baso # (Auto) (0.01-0.08) K/mm3 Manual Slide Review PT 23.1 H (8.0-13.0) SECONDS INR 2.03 Sodium 135 L (136-145) mEq/L Potassium 3.4 L (3.5-5.1) mEq/L Chloride 105 (98-107) mEq/L Carbon Dioxide 23 (21-32) mEq/L Anion Gap 10.4 (5-15) BUN 10 (7-18) mg/dL Creatinine 1.3 H (0.55-1.02) mg/dL Est Cr Clr Drug Dosing 46.61 mL/min Estimated GFR (MDRD) 42 (>60) mL/min BUN/Creatinine Ratio 7.7 L (14-18) Glucose 238 H (74-106) mg/dL POC Glucose (70-105) mg/dL Calcium 8.3 L (8.5-10.1) mg/dL Magnesium 1.6 L (1.8-2.4) mg/dl Total Bilirubin 1.6 H (0.2-1.0) mg/dL AST 27 (15-37) U/L ALT 21 (14-59) U/L Alkaline Phosphatase 164 H (46-116) U/L Ammonia 36 H (11-32) umol/L C-Reactive Protein < 0.2 (<1.0) mg/dL Total Protein 7.1 (6.4-8.2) g/dl Albumin 2.3 L (3.4-5.0) g/dl Globulin 4.8 gm/dL Albumin/Globulin Ratio 0.5 L (1-2) 10/24/17 10/24/17 Range/Units 06:16 10:34 WBC (3.98-10.04) K/mm3 RBC (3.98-5.22) M/mm3 Hgb (11.2-15.7) gm/L Hct (34.1-44.9) % MCV (79.4-94.8) fl MCH (25.6-32.2) pg MCHC (32.2-35.5) g/dl RDW Std Deviation (36.4-46.3) fL Plt Count (182-369) K/mm3 MPV (9.4-12.3) fl Neut % (Auto) (34.0-71.1) % Lymph % (Auto) (19.3-51.7) % [place] % (Auto) (4.7-12.5) % Eos % (Auto) (0.7-5.8) Baso % (Auto) (0.1-1.2) % Neut # (Auto) (1.56-6.13) K/mm3 Lymph # (Auto) (1.18-3.74) K/mm3 [place] # (Auto) (0.24-0.36) K/mm3 Eos # (Auto) (0.04-0.36) K/mm3 Baso # (Auto) (0.01-0.08) K/mm3 Manual Slide Review PT (8.0-13.0) SECONDS INR Sodium (136-145) mEq/L Potassium (3.5-5.1) mEq/L Chloride (98-107) mEq/L Carbon Dioxide (21-32) mEq/L Anion Gap (5-15) BUN (7-18) mg/dL Creatinine (0.55-1.02) mg/dL Est Cr Clr Drug Dosing mL/min Estimated GFR (MDRD) (>60) mL/min BUN/Creatinine Ratio (14-18) Glucose (74-106) mg/dL POC Glucose 244 H 290 H (70-105) mg/dL Calcium (8.5-10.1) mg/dL Magnesium (1.8-2.4) mg/dl Total Bilirubin (0.2-1.0) mg/dL AST (15-37) U/L ALT (14-59) U/L Alkaline Phosphatase (46-116) U/L Ammonia (11-32) umol/L C-Reactive Protein (<1.0) mg/dL Total Protein (6.4-8.2) g/dl Albumin (3.4-5.0) g/dl Globulin gm/dL Albumin/Globulin Ratio (1-2) Bj Results Last 24 Hours: Microbiology 10/23/17 08:15 Influenza Type A Antigen Screen - Final Nasal Aspirate, Unspecified NEGATIVE INFLUENZA A VIRUS AG Influenza Type B Antigen Screen - Final NEGATIVE INFLUENZA B VIRUS AG Med Orders - Current: Current Medications Atenolol (Tenormin) 25 mg PO DAILY [facility] Last Admin: 10/24/17 14:15 Dose: Not Given Duloxetine HCl (Cymbalta) 60 mg PO BID [facility] Last Admin: 10/24/17 08:47 Dose: 60 mg Furosemide (Lasix) 20 mg PO DAILY [facility] Last Admin: 10/24/17 08:48 Dose: 20 mg Sodium Chloride (Normal Saline) 1,000 mls @ 100 mls/hr IV ASDIRECTED [facility] Last Admin: 10/24/17 10:35 Dose: 100 mls/hr Ceftriaxone Sodium 2 gm/ (Dextrose/Water) 100 mls @ 200 mls/hr IV Q24H [facility] Last Admin: 10/24/17 11:02 Dose: 200 mls/hr Ibuprofen (Motrin) 400 mg PO Q6H PRN PRN Reason: Pain (mild 1-3) Insulin Aspart (Novolog) 0 unit SUBCUT QIDACANDBED [facility] PRN Reason: Protocol Last Admin: 10/24/17 11:03 Dose: 9 units Lactulose (Cephulac) 20 gm PO TID [facility] Last Admin: 10/24/17 08:48 Dose: 20 gm Lorazepam (Ativan) 0.5 mg IVPUSH Q8H PRN PRN Reason: Anxiety Morphine Sulfate (Morphine) 1 mg IVPUSH Q6HR PRN PRN Reason: Pain Nadolol (Naldol) 20 mg PO DAILY [facility] Last Admin: 10/24/17 08:50 Dose: 20 mg Nortriptyline HCl (Nortriptyline) 25 mg PO BEDTIME [facility] Last Admin: 10/23/17 22:10 Dose: 25 mg Ondansetron HCl (Zofran Odt) 4 mg PO Q4H PRN PRN Reason: nausea, able to take PO Ondansetron HCl (Zofran) 4 mg IV Q4H PRN PRN Reason: Nausea/Vomiting Pantoprazole Sodium (Protonix) 40 mg PO BID [facility] Last Admin: 10/24/17 08:47 Dose: 40 mg Ursodiol 600mg Cap 0 each PO BID [facility] Last Admin: 10/24/17 08:51 Dose: Not Given Pregabalin (Lyrica) 150 mg PO BID [facility] Last Admin: 10/24/17 08:46 Dose: 150 mg Rifaximin (Xifaxan) 550 mg PO BID [facility] Last Admin: 10/24/17 08:47 Dose: 550 mg Spironolactone (Aldactone) 50 mg PO DAILY [facility] Last Admin: 10/24/17 08:47 Dose: 50 mg Temazepam (Restoril) 7.5 mg PO BEDTIME PRN PRN Reason: Sleep Warfarin Sodium (Pharmacy To Dose - Warfarin) 0 dose .XX ASDIRECTED PRN PRN Reason: RX TO DOSE COUMADIN Warfarin Sodium (Coumadin) 2.5 mg PO ONETIME ONE Stop: 10/24/17 18:01 Discontinued Medications Sodium Chloride (Normal Saline) 1,000 mls @ 999 mls/hr IV ONETIME ONE Stop: 10/23/17 01:25 Last Admin: 10/23/17 00:53 Dose: 999 mls/hr Sodium Chloride (Normal Saline) 1,000 mls @ 999 mls/hr IV ONETIME ONE Stop: 10/23/17 06:21 Last Admin: 10/23/17 05:30 Dose: 999 mls/hr Sodium Chloride (Normal Saline) 1,000 mls @ 200 mls/hr IV ASDIRECTED [facility] Last Admin: 10/23/17 14:07 Dose: 200 mls/hr Magnesium Sulfate 2 gm/ Premix 50 mls @ 25 mls/hr IV ONETIME ONE Stop: 10/24/17 12:43 Last Admin: 10/24/17 12:13 Dose: 25 mls/hr Insulin Aspart (Novolog) 0 unit SUBCUT QIDACANDBED [facility] PRN Reason: Protocol Last Admin: 10/23/17 13:25 Dose: 12 units Insulin Human Regular (Humulin R) 10 unit IV ONETIME STA Stop: 10/23/17 00:48 Last Admin: 10/23/17 00:59 Dose: 10 unit Insulin Human Regular (Humulin R) 5 unit IV ONETIME ONE Stop: 10/23/17 05:21 Last Admin: 10/23/17 05:30 Dose: 5 units Lactulose (Cephulac) 20 gm PO ONETIME ONE Stop: 10/23/17 03:03 Last Admin: 10/23/17 03:49 Dose: 20 gm Potassium Chloride (Klor-Con M20) 40 meq PO ONETIME ONE Stop: 10/23/17 08:31 Last Admin: 10/23/17 09:59 Dose: 40 meq Potassium Chloride (Klor-Con M20) 20 meq PO ONETIME ONE Stop: 10/24/17 10:44 Last Admin: 10/24/17 11:03 Dose: 20 meq Warfarin Sodium (Coumadin) 5 mg PO DAILY@1800 PAUL Stop: 10/23/17 21:00 Last Admin: 10/23/17 18:47 Dose: 5 mg - Exam Quality Assessment: Supplemental Oxygen, DVT Prophylaxis General: Alert, Oriented, Cooperative HEENT: Pupils Equal, Pupils Reactive, EOMI Neck: Trachea Midline, No JVD Lungs: Clear to Auscultation, Normal Respiratory Effort Cardiovascular: Regular Rate, Regular Rhythm GI/Abdominal Exam: Normal Bowel Sounds, Soft, Non-Tender, No Organomegaly, No Distention (Female) Exam: Deferred Back Exam: Normal Inspection Extremities: Normal Inspection Skin: Warm Neurological: No New Focal Deficit Psy/Mental Status: Alert, Normal Affect, Normal Mood - Problem List Review Problem List Initiated/Reviewed/Updated: Yes - My Orders Last 24 Hours: My Active Orders 10/24/17 11:00 cefTRIAXone [Rocephin] 2 gm Dextrose 5% in Water 100 ml IV Q24H 10/24/17 13:00 Atenolol [Tenormin] 25 mg PO DAILY 10/24/17 18:00 Warfarin [Coumadin] 2.5 mg PO ONETIME ONE 10/25/17 05:00 LIPID PANEL [CHEM] Routine - Plan Plan:: I/P: Hyperglycemia, type 2 DM--not DKA -Patient with insulin pump that "was not working" -Insulin given in ED with improvement of sugars to 400's. No need for insulin drip -Accuchecks AC/HS with SSI -Continue IVF fluids- decrease rate -Diabetic diet -CDE/Dietitian consults for DM and cirrhosis -A1C this morning-- 9.9 -R/O other causes/infectious etiology- UC pending, order mycoplasma, s.pneumo and influenza screen -TSH and Troponin also to be obtained Cirrhosis of the liver with acute encephalopathy -Ammonia level 65 in ED, one dose of lactulose given in ED-->improved -Lactulose TID, decrease to BID -Recheck ammonia level tomorrow -Follow LFT's -Cont Rifaxin/home meds -Follows Dr. Banks for GI- recommend follow up after discharge -Patient states cirrhosis is from "PR[place]" and has had this since the "' ". CKD -Follow renal labs -Renal dose all meds Multiple falls at home -PT/OT -TSH -Hx of PN- recommend eval as outpatient with PCP Other: GI prophylax- home PPI BID DVT prophylax- on warfarin for PE Hx, cont and follow daily INR, SCD's and ambulation Resume some home meds Ambulate- PT/OT for balance/strengthening [employer] for cog eval I do not feel patient is safe to have insulin pump; she has cirrhosis as above with what sounds like intermittent encephalopathic changes, is noncompliant with lactulose therapy for this. I feel she is too high of risk with mental status changes for this to be safe. Will order [employer] consult with cognitive evaluation for further direction. CM for assist with DC planning-- LOS ? 2-3 days to gain control of sugars and resolution of encephalopathy Patient is Full Code status PCP is Dr. March with [facility]
[2017-10-24] MEDS ORDERED: Lactulose Soln 10 GM/15 ML 30 ML UD Cup PO ONE (15:30)
[2017-10-24] MEDS ORDERED: Warfarin 2.5 MG Tab PO ONE (18:00)
[2017-10-24] MEDS: Nortriptyline 25 MG Cap PO SCH (21:56)
--- NOTE | 2017-10-25 08:15 | PCM.PN ---
- General Info Date of Service: 10/25/17 Admission Dx/Problem (Free Text): Admission Diagnosis/Problem Admission Diagnosis/Problem Hyperglycemia Subjective Update: Follow Up Functional Status: Reports: Pain Controlled, Tolerating Diet, Ambulating, Urinating, New Symptoms - Review of Systems General: Denies: Fever, Weakness, Fatigue, Malaise, Chills HEENT: Reports: No Symptoms Pulmonary: Denies: Shortness of Breath Cardiovascular: Denies: Chest Pain Gastrointestinal: Denies: Abdominal Pain, Constipation, Diarrhea, Nausea, Vomiting Genitourinary: Reports: No Symptoms Musculoskeletal: Reports: No Symptoms Skin: Denies: Cyanosis, Mottled, Pallor, Diaphoresis, Rash Neurological: Denies: Difficulty Walking, Weakness, Gait Disturbance Psychiatric: Denies: Depression, Anxiety, Agitation, Hallucinations, Suicidal Ideation Systems Review Comment:: No overnight or acute issues. She slept well last night. She reports no issues with her sugar. Her UA grew E. coli sensitive to Rocephin. She is afebrile but WBC is 1.89. She reports no new complaints. - Patient Data Vitals - Most Recent: Last Vital Signs Temp 36.4 C 10/25/17 00:29 Pulse 73 10/25/17 00:29 Resp 14 10/25/17 00:29 BP 105/43 L 10/25/17 00:29 Pulse Ox 98 10/25/17 00:29 Weight - Most Recent: 103.51 kg I&O - Last 24 Hours: Intake & Output 10/24/17 10/25/17 10/25/17 22:59 06:59 14:59 Intake Total 2618 2125 Output Total 600 800 Balance 2017 1325 Lab Results Last 24 Hours: Laboratory Results - last 24 hr 10/24/17 10/24/17 10/24/17 Range/Units 10:34 16:01 21:57 WBC (3.98-10.04) K/mm3 RBC (3.98-5.22) M/mm3 Hgb (11.2-15.7) gm/L Hct (34.1-44.9) % MCV (79.4-94.8) fl MCH (25.6-32.2) pg MCHC (32.2-35.5) g/dl RDW Std Deviation (36.4-46.3) fL Plt Count (182-369) K/mm3 MPV (9.4-12.3) fl Neut % (Auto) (34.0-71.1) % Lymph % (Auto) (19.3-51.7) % Mcdonald % (Auto) (4.7-12.5) % Eos % (Auto) (0.7-5.8) Baso % (Auto) (0.1-1.2) % Neut # (Auto) (1.56-6.13) K/mm3 Lymph # (Auto) (1.18-3.74) K/mm3 Mcdonald # (Auto) (0.24-0.36) K/mm3 Eos # (Auto) (0.04-0.36) K/mm3 Baso # (Auto) (0.01-0.08) K/mm3 Manual Slide Review PT (8.0-13.0) SECONDS INR Sodium (136-145) mEq/L Potassium (3.5-5.1) mEq/L Chloride (98-107) mEq/L Carbon Dioxide (21-32) mEq/L Anion Gap (5-15) BUN (7-18) mg/dL Creatinine (0.55-1.02) mg/dL Est Cr Clr Drug Dosing mL/min Estimated GFR (MDRD) (>60) mL/min BUN/Creatinine Ratio (14-18) Glucose (74-106) mg/dL POC Glucose 290 H 392 H 389 H (70-105) mg/dL Calcium (8.5-10.1) mg/dL Magnesium (1.8-2.4) mg/dl Total Bilirubin (0.2-1.0) mg/dL AST (15-37) U/L ALT (14-59) U/L Alkaline Phosphatase (46-116) U/L C-Reactive Protein (<1.0) mg/dL Total Protein (6.4-8.2) g/dl Albumin (3.4-5.0) g/dl Globulin gm/dL Albumin/Globulin Ratio (1-2) Triglycerides (<150) mg/dL Cholesterol (<200) mg/dL LDL Cholesterol Direct (<100) mg/dL HDL Cholesterol (40-59) mg/dL 10/25/17 10/25/17 10/25/17 Range/Units 05:45 05:45 05:45 WBC 1.89 L* (3.98-10.04) K/mm3 RBC 3.59 L (3.98-5.22) M/mm3 Hgb 10.7 L (11.2-15.7) gm/L Hct 31.9 L (34.1-44.9) % MCV 88.9 (79.4-94.8) fl MCH 29.8 (25.6-32.2) pg MCHC 33.5 (32.2-35.5) g/dl RDW Std Deviation 53.4 H (36.4-46.3) fL Plt Count 57 L (182-369) K/mm3 MPV 11.1 (9.4-12.3) fl Neut % (Auto) 38.7 (34.0-71.1) % Lymph % (Auto) 43.4 (19.3-51.7) % Mcdonald % (Auto) 9.5 (4.7-12.5) % Eos % (Auto) 6.3 H (0.7-5.8) Baso % (Auto) 2.1 H (0.1-1.2) % Neut # (Auto) 0.73 L (1.56-6.13) K/mm3 Lymph # (Auto) 0.82 L (1.18-3.74) K/mm3 Mcdonald # (Auto) 0.18 L (0.24-0.36) K/mm3 Eos # (Auto) 0.12 (0.04-0.36) K/mm3 Baso # (Auto) 0.04 (0.01-0.08) K/mm3 Manual Slide Review Abnormal smear PT 25.4 H (8.0-13.0) SECONDS INR 2.21 Sodium 137 (136-145) mEq/L Potassium 3.7 (3.5-5.1) mEq/L Chloride 105 (98-107) mEq/L Carbon Dioxide 26 (21-32) mEq/L Anion Gap 9.7 (5-15) BUN 7 (7-18) mg/dL Creatinine 1.2 H (0.55-1.02) mg/dL Est Cr Clr Drug Dosing 50.49 mL/min Estimated GFR (MDRD) 46 (>60) mL/min BUN/Creatinine Ratio 5.8 L (14-18) Glucose 220 H (74-106) mg/dL POC Glucose (70-105) mg/dL Calcium 8.4 L (8.5-10.1) mg/dL Magnesium 1.9 (1.8-2.4) mg/dl Total Bilirubin 1.3 H (0.2-1.0) mg/dL AST 35 (15-37) U/L ALT 21 (14-59) U/L Alkaline Phosphatase 152 H (46-116) U/L C-Reactive Protein < 0.2 (<1.0) mg/dL Total Protein 6.6 (6.4-8.2) g/dl Albumin 2.2 L (3.4-5.0) g/dl Globulin 4.4 gm/dL Albumin/Globulin Ratio 0.5 L (1-2) Triglycerides (<150) mg/dL Cholesterol (<200) mg/dL LDL Cholesterol Direct (<100) mg/dL HDL Cholesterol (40-59) mg/dL 10/25/17 10/25/17 Range/Units 05:45 06:07 WBC (3.98-10.04) K/mm3 RBC (3.98-5.22) M/mm3 Hgb (11.2-15.7) gm/L Hct (34.1-44.9) % MCV (79.4-94.8) fl MCH (25.6-32.2) pg MCHC (32.2-35.5) g/dl RDW Std Deviation (36.4-46.3) fL Plt Count (182-369) K/mm3 MPV (9.4-12.3) fl Neut % (Auto) (34.0-71.1) % Lymph % (Auto) (19.3-51.7) % Mcdonald % (Auto) (4.7-12.5) % Eos % (Auto) (0.7-5.8) Baso % (Auto) (0.1-1.2) % Neut # (Auto) (1.56-6.13) K/mm3 Lymph # (Auto) (1.18-3.74) K/mm3 Mcdonald # (Auto) (0.24-0.36) K/mm3 Eos # (Auto) (0.04-0.36) K/mm3 Baso # (Auto) (0.01-0.08) K/mm3 Manual Slide Review PT (8.0-13.0) SECONDS INR Sodium (136-145) mEq/L Potassium (3.5-5.1) mEq/L Chloride (98-107) mEq/L Carbon Dioxide (21-32) mEq/L Anion Gap (5-15) BUN (7-18) mg/dL Creatinine (0.55-1.02) mg/dL Est Cr Clr Drug Dosing mL/min Estimated GFR (MDRD) (>60) mL/min BUN/Creatinine Ratio (14-18) Glucose (74-106) mg/dL POC Glucose 212 H (70-105) mg/dL Calcium (8.5-10.1) mg/dL Magnesium (1.8-2.4) mg/dl Total Bilirubin (0.2-1.0) mg/dL AST (15-37) U/L ALT (14-59) U/L Alkaline Phosphatase (46-116) U/L C-Reactive Protein (<1.0) mg/dL Total Protein (6.4-8.2) g/dl Albumin (3.4-5.0) g/dl Globulin gm/dL Albumin/Globulin Ratio (1-2) Triglycerides 61 (<150) mg/dL Cholesterol 66 (<200) mg/dL LDL Cholesterol Direct 39 (<100) mg/dL HDL Cholesterol 23.0 L (40-59) mg/dL Med Orders - Current: Current Medications Atenolol (Tenormin) 25 mg PO DAILY [facility] Last Admin: 10/24/17 14:15 Dose: Not Given Duloxetine HCl (Cymbalta) 60 mg PO BID [facility] Last Admin: 10/24/17 21:56 Dose: 60 mg Furosemide (Lasix) 20 mg PO DAILY [facility] Last Admin: 10/24/17 08:48 Dose: 20 mg Ceftriaxone Sodium 2 gm/ (Dextrose/Water) 100 mls @ 200 mls/hr IV Q24H [facility] Last Admin: 10/24/17 11:02 Dose: 200 mls/hr Ibuprofen (Motrin) 400 mg PO Q6H PRN PRN Reason: Pain (mild 1-3) Insulin Aspart (Novolog) 0 unit SUBCUT QIDACANDBED [facility] PRN Reason: Protocol Last Admin: 10/24/17 21:57 Dose: 15 units Lactulose (Cephulac) 20 gm PO BID [facility] Last Admin: 10/24/17 21:56 Dose: 20 gm Lorazepam (Ativan) 0.5 mg IVPUSH Q8H PRN PRN Reason: Anxiety Morphine Sulfate (Morphine) 1 mg IVPUSH Q6HR PRN PRN Reason: Pain Nadolol (Naldol) 20 mg PO DAILY [facility] Last Admin: 10/24/17 08:50 Dose: 20 mg Nortriptyline HCl (Nortriptyline) 25 mg PO BEDTIME [facility] Last Admin: 10/24/17 21:56 Dose: 25 mg Ondansetron HCl (Zofran Odt) 4 mg PO Q4H PRN PRN Reason: nausea, able to take PO Ondansetron HCl (Zofran) 4 mg IV Q4H PRN PRN Reason: Nausea/Vomiting Pantoprazole Sodium (Protonix) 40 mg PO BID [facility] Last Admin: 10/24/17 21:57 Dose: 40 mg Ursodiol 600mg Cap 0 each PO BID [facility] Last Admin: 10/24/17 22:04 Dose: Not Given Pregabalin (Lyrica) 150 mg PO BID [facility] Last Admin: 10/24/17 21:56 Dose: 150 mg Rifaximin (Xifaxan) 550 mg PO BID [facility] Last Admin: 10/24/17 21:57 Dose: 550 mg Spironolactone (Aldactone) 50 mg PO DAILY [facility] Last Admin: 10/24/17 08:47 Dose: 50 mg Temazepam (Restoril) 7.5 mg PO BEDTIME PRN PRN Reason: Sleep Warfarin Sodium (Pharmacy To Dose - Warfarin) 0 dose .XX ASDIRECTED PRN PRN Reason: RX TO DOSE COUMADIN Discontinued Medications Sodium Chloride (Normal Saline) 1,000 mls @ 999 mls/hr IV ONETIME ONE Stop: 10/23/17 01:25 Last Admin: 10/23/17 00:53 Dose: 999 mls/hr Sodium Chloride (Normal Saline) 1,000 mls @ 999 mls/hr IV ONETIME ONE Stop: 10/23/17 06:21 Last Admin: 10/23/17 05:30 Dose: 999 mls/hr Sodium Chloride (Normal Saline) 1,000 mls @ 200 mls/hr IV ASDIRECTED [facility] Last Admin: 10/23/17 14:07 Dose: 200 mls/hr Sodium Chloride (Normal Saline) 1,000 mls @ 100 mls/hr IV ASDIRECTED [facility] Last Admin: 10/24/17 10:35 Dose: 100 mls/hr Magnesium Sulfate 2 gm/ Premix 50 mls @ 25 mls/hr IV ONETIME ONE Stop: 10/24/17 12:43 Last Admin: 10/24/17 12:13 Dose: 25 mls/hr Insulin Aspart (Novolog) 0 unit SUBCUT QIDACANDBED [facility] PRN Reason: Protocol Last Admin: 10/23/17 13:25 Dose: 12 units Insulin Human Regular (Humulin R) 10 unit IV ONETIME STA Stop: 10/23/17 00:48 Last Admin: 10/23/17 00:59 Dose: 10 unit Insulin Human Regular (Humulin R) 5 unit IV ONETIME ONE Stop: 10/23/17 05:21 Last Admin: 10/23/17 05:30 Dose: 5 units Lactulose (Cephulac) 20 gm PO ONETIME ONE Stop: 10/23/17 03:03 Last Admin: 10/23/17 03:49 Dose: 20 gm Lactulose (Cephulac) 20 gm PO TID [facility] Last Admin: 10/24/17 16:10 Dose: Not Given Lactulose (Cephulac) 20 gm PO ONETIME ONE Stop: 10/24/17 15:31 Last Admin: 10/24/17 15:49 Dose: 20 gm Potassium Chloride (Klor-Con M20) 40 meq PO ONETIME ONE Stop: 10/23/17 08:31 Last Admin: 10/23/17 09:59 Dose: 40 meq Potassium Chloride (Klor-Con M20) 20 meq PO ONETIME ONE Stop: 10/24/17 10:44 Last Admin: 10/24/17 11:03 Dose: 20 meq Warfarin Sodium (Coumadin) 5 mg PO DAILY@1800 [facility] Stop: 10/23/17 21:00 Last Admin: 10/23/17 18:47 Dose: 5 mg Warfarin Sodium (Coumadin) 2.5 mg PO ONETIME ONE Stop: 10/24/17 18:01 Last Admin: 10/24/17 17:33 Dose: 2.5 mg - Exam General: Alert, Oriented, Cooperative, No Acute Distress, Other (Obese) HEENT: Pupils Equal, Pupils Reactive, EOMI, Mucous Membr. Moist/Elida Neck: Supple, Trachea Midline, No JVD, No Thyromegaly Lungs: Clear to Auscultation, Normal Respiratory Effort Cardiovascular: Regular Rate, Regular Rhythm GI/Abdominal Exam: Normal Bowel Sounds, Soft, Non-Tender, No Organomegaly, No Distention, No Abnormal Bruit, No Mass (Female) Exam: Deferred Back Exam: Normal Inspection, Decreased Range of Motion Extremities: Normal Inspection, Normal Range of Motion, Non-Tender, No Pedal Edema, Normal Capillary Refill Peripheral Pulses: 2+: Dorsalis Pedis (L), Dorsalis Pedis (R) Skin: Warm, Dry, Intact Neurological: No New Focal Deficit Psy/Mental Status: Alert, Normal Affect, Normal Mood - Problem List Review Problem List Initiated/Reviewed/Updated: Yes - Plan Plan:: I/P: Acute: Hyperglycemia, type 2 DM, Improved -Patient with insulin pump that "was not working" -Insulin given in ED with improvement of sugars to 400's. No need for insulin drip -Accuchecks AC/HS with SSI -Levemir 10 units SubQ BID starts at 2100 tonight -Diabetic diet -CDE/Dietitian consults for DM and cirrhosis- in AM for resumption of insulin pump -A1C of 9.9 -R/O other causes/infectious etiology- UC pos for E. coli; Mycoplasma, Strep pneumo and influenza screen-all negative -TSH and Troponin: both wnl Cystitis -Uncomplicated -Risk factor: poorly controlled serum glucose -Pos for E. 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 Banks for GI- recommend follow up after discharge -Patient states cirrhosis is from "PRATT" and has had this since the "80's " S/p Multiple Falls at home -Continue PT/OT -TSH-normal -Hx of PN- recommend eval as outpatient with PCP Chronic: HTN Liver Cirrhosis SOB GERD OA Urinary Incontinence DM1 Anemia Encephalopathy Depression Hx/o VTE Plan: She is clinically stable and seems to be at baseline with mental status BS is stable at 200-300s where she normally runs at Continue current treatment GI prophylax- home PPI BID DVT prophylax- on warfarin for PE Hx, cont and follow daily INR, SCD's and ambulation Continue PT/OT for balance/strengthening [employer] for cog eval if not already CM for assist with DC planning Patient is Full Code status Additional orders as above PCP is Dr. March with [facility] Possible d/c 2 days with resumption of insulin pump
[2017-10-25] MEDS: Rifaximin 550 MG Tab PO SCH ×2 (09:07→21:00)
[2017-10-25] MEDS: Lactulose Soln 10 GM/15 ML 30 ML UD Cup PO SCH ×2 (09:07→21:00)
[2017-10-25] MEDS: Pregabalin 75 MG Cap PO SCH ×2 (09:07→21:01)
[2017-10-25] MEDS: DULoxetine 30 MG Cap PO SCH ×2 (09:07→21:00)
[2017-10-25] MEDS: Spironolactone 25 MG Tab PO SCH (09:08)
[2017-10-25] MEDS: Atenolol 25 MG Tab PO SCH (09:08)
[2017-10-25] MEDS: Insulin Aspart 100 Units/ML 3 ML Pen SUBCUT SCH ×4 (09:09→21:03)
[2017-10-25] MEDS: Pantoprazole 40 MG Tab.CR PO SCH ×2 (09:09→21:00)
[2017-10-25] MEDS: URSODIOL 600 MG PO SCH ×2 (09:42→21:04)
[2017-10-25] MEDS: cefTRIAXone 1 GM in Sodium Chloride 0.9% 100 ML IV SCH (10:51)
[2017-10-25] MEDS ORDERED: Warfarin 2.5 MG Tab PO ONE (18:00)
[2017-10-25] MEDS: Nortriptyline 25 MG Cap PO SCH (21:01)
[2017-10-25] MEDS: Insulin Detemir 100 Units/ML 3 ML Pen SUBCUT SCH (21:01)
--- NOTE | 2017-10-26 08:30 | PCM.PN ---
- General Info Date of Service: 10/26/17 Admission Dx/Problem (Free Text): Admission Diagnosis/Problem Admission Diagnosis/Problem Hyperglycemia Blood sugars better this morning with addition of levemir last evening- 163. Patient continues to be intermittently confused- baseline for her. No c/o from patient today. Cog eval with needs for assist with multiple ADL functions. Team recommending 24/7 care. Functional Status: Reports: Pain Controlled, Tolerating Diet, Ambulating, Urinating. Denies: New Symptoms - Review of Systems General: Denies: Fever HEENT: Reports: No Symptoms Pulmonary: Reports: No Symptoms. Denies: Shortness of Breath, Cough Cardiovascular: Reports: No Symptoms. Denies: Chest Pain, Dyspnea on Exertion Gastrointestinal: Reports: No Symptoms, Abdominal Pain (mild), Diarrhea (loose stools with lactulose). Denies: Nausea, Vomiting Genitourinary: Reports: No Symptoms Neurological: Reports: Confusion (intermittent but improved) - Patient Data Vitals - Most Recent: Last Vital Signs Temp 97.9 F 10/26/17 02:16 Pulse 64 10/26/17 02:16 Resp 16 10/26/17 02:16 BP 111/61 10/26/17 02:16 Pulse Ox 93 L 10/26/17 02:16 Weight - Most Recent: 230 lb 1.6 oz I&O - Last 24 Hours: Intake & Output 10/25/17 10/26/17 10/26/17 22:59 06:59 14:59 Intake Total 550 2000 Output Total 600 650 Balance -50 1350 Lab Results Last 24 Hours: Laboratory Results - last 24 hr 10/25/17 10/25/17 10/25/17 Range/Units 11:04 17:23 20:59 WBC (3.98-10.04) K/mm3 RBC (3.98-5.22) M/mm3 Hgb (11.2-15.7) gm/L Hct (34.1-44.9) % MCV (79.4-94.8) fl MCH (25.6-32.2) pg MCHC (32.2-35.5) g/dl RDW Std Deviation (36.4-46.3) fL Plt Count (182-369) K/mm3 MPV (9.4-12.3) fl Neut % (Auto) (34.0-71.1) % Lymph % (Auto) (19.3-51.7) % [place] % (Auto) (4.7-12.5) % Eos % (Auto) (0.7-5.8) Baso % (Auto) (0.1-1.2) % Neut # (Auto) (1.56-6.13) K/mm3 Lymph # (Auto) (1.18-3.74) K/mm3 [place] # (Auto) (0.24-0.36) K/mm3 Eos # (Auto) (0.04-0.36) K/mm3 Baso # (Auto) (0.01-0.08) K/mm3 Manual Slide Review PT (8.0-13.0) SECONDS INR Sodium (136-145) mEq/L Potassium (3.5-5.1) mEq/L Chloride (98-107) mEq/L Carbon Dioxide (21-32) mEq/L Anion Gap (5-15) BUN (7-18) mg/dL Creatinine (0.55-1.02) mg/dL Est Cr Clr Drug Dosing mL/min Estimated GFR (MDRD) (>60) mL/min BUN/Creatinine Ratio (14-18) Glucose (74-106) mg/dL POC Glucose 379 H 374 H 307 H (70-105) mg/dL Calcium (8.5-10.1) mg/dL Magnesium (1.8-2.4) mg/dl Total Bilirubin (0.2-1.0) mg/dL AST (15-37) U/L ALT (14-59) U/L Alkaline Phosphatase (46-116) U/L C-Reactive Protein (<1.0) mg/dL Total Protein (6.4-8.2) g/dl Albumin (3.4-5.0) g/dl Globulin gm/dL Albumin/Globulin Ratio (1-2) 10/26/17 10/26/17 10/26/17 Range/Units 06:15 06:15 06:15 WBC 1.76 L* (3.98-10.04) K/mm3 RBC 3.65 L (3.98-5.22) M/mm3 Hgb 10.8 L (11.2-15.7) gm/L Hct 32.4 L (34.1-44.9) % MCV 88.8 (79.4-94.8) fl MCH 29.6 (25.6-32.2) pg MCHC 33.3 (32.2-35.5) g/dl RDW Std Deviation 54.5 H (36.4-46.3) fL Plt Count 61 L (182-369) K/mm3 MPV 11.6 (9.4-12.3) fl Neut % (Auto) 43.1 (34.0-71.1) % Lymph % (Auto) 40.9 (19.3-51.7) % [place] % (Auto) 9.1 (4.7-12.5) % Eos % (Auto) 6.3 H (0.7-5.8) Baso % (Auto) 0.6 (0.1-1.2) % Neut # (Auto) 0.76 L (1.56-6.13) K/mm3 Lymph # (Auto) 0.72 L (1.18-3.74) K/mm3 [place] # (Auto) 0.16 L (0.24-0.36) K/mm3 Eos # (Auto) 0.11 (0.04-0.36) K/mm3 Baso # (Auto) 0.01 (0.01-0.08) K/mm3 Manual Slide Review Abnormal smear PT 23.7 H (8.0-13.0) SECONDS INR 2.08 Sodium 137 (136-145) mEq/L Potassium 3.8 (3.5-5.1) mEq/L Chloride 106 (98-107) mEq/L Carbon Dioxide 23 (21-32) mEq/L Anion Gap 11.8 (5-15) BUN 10 (7-18) mg/dL Creatinine 1.2 H (0.55-1.02) mg/dL Est Cr Clr Drug Dosing 50.49 mL/min Estimated GFR (MDRD) 46 (>60) mL/min BUN/Creatinine Ratio 8.3 L (14-18) Glucose 184 H (74-106) mg/dL POC Glucose (70-105) mg/dL Calcium 8.5 (8.5-10.1) mg/dL Magnesium 1.7 L (1.8-2.4) mg/dl Total Bilirubin 1.1 H (0.2-1.0) mg/dL AST 42 H (15-37) U/L ALT 22 (14-59) U/L Alkaline Phosphatase 162 H (46-116) U/L C-Reactive Protein < 0.2 (<1.0) mg/dL Total Protein 6.9 (6.4-8.2) g/dl Albumin 2.2 L (3.4-5.0) g/dl Globulin 4.7 gm/dL Albumin/Globulin Ratio 0.5 L (1-2) 10/26/17 Range/Units 06:18 WBC (3.98-10.04) K/mm3 RBC (3.98-5.22) M/mm3 Hgb (11.2-15.7) gm/L Hct (34.1-44.9) % MCV (79.4-94.8) fl MCH (25.6-32.2) pg MCHC (32.2-35.5) g/dl RDW Std Deviation (36.4-46.3) fL Plt Count (182-369) K/mm3 MPV (9.4-12.3) fl Neut % (Auto) (34.0-71.1) % Lymph % (Auto) (19.3-51.7) % [place] % (Auto) (4.7-12.5) % Eos % (Auto) (0.7-5.8) Baso % (Auto) (0.1-1.2) % Neut # (Auto) (1.56-6.13) K/mm3 Lymph # (Auto) (1.18-3.74) K/mm3 [place] # (Auto) (0.24-0.36) K/mm3 Eos # (Auto) (0.04-0.36) K/mm3 Baso # (Auto) (0.01-0.08) K/mm3 Manual Slide Review PT (8.0-13.0) SECONDS INR Sodium (136-145) mEq/L Potassium (3.5-5.1) mEq/L Chloride (98-107) mEq/L Carbon Dioxide (21-32) mEq/L Anion Gap (5-15) BUN (7-18) mg/dL Creatinine (0.55-1.02) mg/dL Est Cr Clr Drug Dosing mL/min Estimated GFR (MDRD) (>60) mL/min BUN/Creatinine Ratio (14-18) Glucose (74-106) mg/dL POC Glucose 163 H (70-105) mg/dL Calcium (8.5-10.1) mg/dL Magnesium (1.8-2.4) mg/dl Total Bilirubin (0.2-1.0) mg/dL AST (15-37) U/L ALT (14-59) U/L Alkaline Phosphatase (46-116) U/L C-Reactive Protein (<1.0) mg/dL Total Protein (6.4-8.2) g/dl Albumin (3.4-5.0) g/dl Globulin gm/dL Albumin/Globulin Ratio (1-2) Med Orders - Current: Current Medications Atenolol (Tenormin) 25 mg PO DAILY [facility] Last Admin: 10/25/17 09:08 Dose: 25 mg Duloxetine HCl (Cymbalta) 60 mg PO BID [facility] Last Admin: 10/25/17 21:00 Dose: 60 mg Furosemide (Lasix) 20 mg PO DAILY [facility] Last Admin: 10/24/17 08:48 Dose: 20 mg Ceftriaxone Sodium 1 gm/ (Sodium Chloride) 100 mls @ 200 mls/hr IV Q24H [facility] Last Admin: 10/25/17 10:51 Dose: 200 mls/hr Ibuprofen (Motrin) 400 mg PO Q6H PRN PRN Reason: Pain (mild 1-3) Last Admin: 10/25/17 09:22 Dose: 400 mg Insulin Aspart (Novolog) 0 unit SUBCUT QIDACANDBED [facility] PRN Reason: Protocol Last Admin: 10/25/17 21:03 Dose: 12 units Insulin Detemir (Levemir) 10 unit SUBCUT BID [facility] Last Admin: 10/25/17 21:01 Dose: 10 units Lactulose (Cephulac) 20 gm PO BID [facility] Last Admin: 10/25/17 21:00 Dose: 20 gm Lorazepam (Ativan) 0.5 mg IVPUSH Q8H PRN PRN Reason: Anxiety Magnesium Oxide (Magnesium Oxide) 800 mg PO ONETIME ONE Stop: 10/26/17 09:01 Morphine Sulfate (Morphine) 1 mg IVPUSH Q6HR PRN PRN Reason: Pain Nadolol (Naldol) 20 mg PO DAILY [facility] Last Admin: 10/25/17 09:11 Dose: 20 mg Nortriptyline HCl (Nortriptyline) 25 mg PO BEDTIME [facility] Last Admin: 10/25/17 21:01 Dose: 25 mg Ondansetron HCl (Zofran Odt) 4 mg PO Q4H PRN PRN Reason: nausea, able to take PO Ondansetron HCl (Zofran) 4 mg IV Q4H PRN PRN Reason: Nausea/Vomiting Pantoprazole Sodium (Protonix) 40 mg PO BID [facility] Last Admin: 10/25/17 21:00 Dose: 40 mg Ursodiol 600mg Cap 0 each PO BID [facility] Last Admin: 10/25/17 21:04 Dose: Not Given Pregabalin (Lyrica) 150 mg PO BID [facility] Last Admin: 10/25/17 21:01 Dose: 150 mg Rifaximin (Xifaxan) 550 mg PO BID [facility] Last Admin: 10/25/17 21:00 Dose: 550 mg Spironolactone (Aldactone) 50 mg PO DAILY [facility] Last Admin: 10/25/17 09:08 Dose: 50 mg Temazepam (Restoril) 7.5 mg PO BEDTIME PRN PRN Reason: Sleep Warfarin Sodium (Pharmacy To Dose - Warfarin) 0 dose .XX ASDIRECTED PRN PRN Reason: RX TO DOSE COUMADIN Warfarin Sodium (Coumadin) 5 mg PO ONETIME ONE Stop: 10/26/17 18:01 Discontinued Medications Sodium Chloride (Normal Saline) 1,000 mls @ 999 mls/hr IV ONETIME ONE Stop: 10/23/17 01:25 Last Admin: 10/23/17 00:53 Dose: 999 mls/hr Sodium Chloride (Normal Saline) 1,000 mls @ 999 mls/hr IV ONETIME ONE Stop: 10/23/17 06:21 Last Admin: 10/23/17 05:30 Dose: 999 mls/hr Sodium Chloride (Normal Saline) 1,000 mls @ 200 mls/hr IV ASDIRECTED [facility] Last Admin: 10/23/17 14:07 Dose: 200 mls/hr Sodium Chloride (Normal Saline) 1,000 mls @ 100 mls/hr IV ASDIRECTED [facility] Last Admin: 10/24/17 10:35 Dose: 100 mls/hr Ceftriaxone Sodium 2 gm/ (Dextrose/Water) 100 mls @ 200 mls/hr IV Q24H [facility] Last Admin: 10/24/17 11:02 Dose: 200 mls/hr Magnesium Sulfate 2 gm/ Premix 50 mls @ 25 mls/hr IV ONETIME ONE Stop: 10/24/17 12:43 Last Admin: 10/24/17 12:13 Dose: 25 mls/hr Insulin Aspart (Novolog) 0 unit SUBCUT QIDACANDBED [facility] PRN Reason: Protocol Last Admin: 10/23/17 13:25 Dose: 12 units Insulin Human Regular (Humulin R) 10 unit IV ONETIME STA Stop: 10/23/17 00:48 Last Admin: 10/23/17 00:59 Dose: 10 unit Insulin Human Regular (Humulin R) 5 unit IV ONETIME ONE Stop: 10/23/17 05:21 Last Admin: 10/23/17 05:30 Dose: 5 units Lactulose (Cephulac) 20 gm PO ONETIME ONE Stop: 10/23/17 03:03 Last Admin: 10/23/17 03:49 Dose: 20 gm Lactulose (Cephulac) 20 gm PO TID [facility] Last Admin: 10/24/17 16:10 Dose: Not Given Lactulose (Cephulac) 20 gm PO ONETIME ONE Stop: 10/24/17 15:31 Last Admin: 10/24/17 15:49 Dose: 20 gm Potassium Chloride (Klor-Con M20) 40 meq PO ONETIME ONE Stop: 10/23/17 08:31 Last Admin: 10/23/17 09:59 Dose: 40 meq Potassium Chloride (Klor-Con M20) 20 meq PO ONETIME ONE Stop: 10/24/17 10:44 Last Admin: 10/24/17 11:03 Dose: 20 meq Warfarin Sodium (Coumadin) 5 mg PO DAILY@1800 [facility] Stop: 10/23/17 21:00 Last Admin: 10/23/17 18:47 Dose: 5 mg Warfarin Sodium (Coumadin) 2.5 mg PO ONETIME ONE Stop: 10/24/17 18:01 Last Admin: 10/24/17 17:33 Dose: 2.5 mg Warfarin Sodium (Coumadin) 2.5 mg PO ONETIME ONE Stop: 10/25/17 18:01 Last Admin: 10/25/17 17:32 Dose: 2.5 mg - Exam Quality Assessment: DVT Prophylaxis General: Alert, Oriented, Cooperative, No Acute Distress HEENT: Pupils Equal, EOMI, Mucous Membr. Moist/[place] Neck: Supple Lungs: Normal Respiratory Effort, Decreased Breath Sounds, Wheezing ( intermittent with exp) Cardiovascular: Regular Rate, Regular Rhythm GI/Abdominal Exam: Normal Bowel Sounds, Soft, Non-Tender. No: Guarding, Rigid, Rebound, Tender (Female) Exam: Deferred Back Exam: Normal Inspection Extremities: Normal Capillary Refill Peripheral Pulses: 1+: Dorsalis Pedis (L), Dorsalis Pedis (R) Neurological: No New Focal Deficit Psy/Mental Status: Alert, Normal Affect, Normal Mood - Problem List & Annotations (1) Hyperglycemia due to type 2 diabetes mellitus SNOMED Code(s): 429685712468110 Code(s): E11.65 - TYPE 2 DIABETES MELLITUS WITH HYPERGLYCEMIA Status: Chronic Priority: High Current Visit: Yes Qualifiers: Diabetes mellitus senior care insulin use: with laborer marine terminal use Qualified Code( s): E11.65 - Type 2 diabetes mellitus with hyperglycemia; Z79.4 - lobsterman ( current) use of insulin; Z79.4 - half-way (current) use of insulin; Z79.4 - half-way (current) use of insulin; Z79.4 - lobsterman (current) use of insulin (2) Hepatic encephalopathy SNOMED Code(s): 83858184 Code(s): K72.90 - HEPATIC FAILURE, UNSPECIFIED WITHOUT COMA Status: Chronic Priority: High Current Visit: Yes (3) CKD (chronic kidney disease) SNOMED Code(s): 986293166 Code(s): N18.9 - CHRONIC KIDNEY DISEASE, UNSPECIFIED Status: Chronic Priority: Medium Current Visit: Yes (4) Medical non-compliance SNOMED Code(s): 431612621 Code(s): Z91.19 - PATIENT'S NONCOMPLIANCE W OTH MEDICAL TREATMENT AND REGIMEN Status: Chronic Priority: High Current Visit: Yes - Problem List Review Problem List Initiated/Reviewed/Updated: Yes - Plan Plan:: I/P: Acute: Hyperglycemia, type 2 DM, Improved -Patient with insulin pump that "was not working"---I do not feel patient is safe for insulin pump with 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 -Insulin given in ED with improvement of sugars to 400's. No need for insulin drip -Accuchecks AC/HS with SSI -Levemir 10 units SubQ BID with SSI- sugars 379 to 163 the past 24 hours -Diabetic diet -CDE/Dietitian consults for DM and cirrhosis -A1C of 9.9 -R/O other causes/infectious etiology- UC pos for E. coli; Mycoplasma, Strep pneumo and influenza screen-all negative -TSH and Troponin: both wnl Cystitis -Uncomplicated -Risk factor: poorly controlled serum glucose -Pos for E. 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 Banks for GI- recommend follow up after discharge -Patient states cirrhosis is from "PRATT" and has had this since the "80's " -Cog eval with SOL[employer] SYSTEM[employer] DESIGNER; recommendations for assistance with most ADL and higher executive functioning-- team recommends 24/7 care at this time. S/p Multiple Falls at home -Continue PT/OT -TSH-normal -Hx of PN- recommend eval as outpatient with PCP Medical noncompliance- -Insulin pump "not working" for at least a week; patient is unaware and not sure how to trouble shoot or what to do if malfunctions, A1C of 9.9 indicates very poor control if patient should have insulin pump. -Has not seen PCP or CDE for >1 year -Is unsure of when she last saw Dr. Banks for cirrhosis but knows she sees or should see him every 6 months Chronic: HTN Liver Cirrhosis--f/up with GI after discharge SOB GERD OA Urinary Incontinence DM- as above Anemia--stable, no active bleeding Encephalopathy--acute on chronic Depression Hx/o VTE Plan: She is clinically stable and seems to be at baseline with mental status BS is stable at 200-300s where she normally runs at Continue current treatment GI prophylax- home PPI BID DVT prophylax- on warfarin for PE Hx, cont and follow daily INR, SCD's and ambulation Continue PT/OT for balance/strengthening [employer] SYSTEM[employer] DESIGNER for cog eval if not already CM for assist with DC planning---CM/SW for assist with placement vs 30/03 care at home. Patient is Full Code status Additional orders as above PCP is Dr. March with [facility]---has not seen for over a year Possible d/c tomorrow pending placement vs 24/7 care at home.
[2017-10-26] MEDS: Insulin Aspart 100 Units/ML 3 ML Pen SUBCUT SCH ×4 (08:47→21:42)
[2017-10-26] MEDS: DULoxetine 30 MG Cap PO SCH ×2 (08:48→21:41)
[2017-10-26] MEDS: Rifaximin 550 MG Tab PO SCH ×2 (08:48→21:40)
[2017-10-26] MEDS: Lactulose Soln 10 GM/15 ML 30 ML UD Cup PO SCH ×2 (08:48→21:40)
[2017-10-26] MEDS: Pregabalin 75 MG Cap PO SCH ×2 (08:48→21:40)
[2017-10-26] MEDS: Atenolol 25 MG Tab PO SCH (08:49)
[2017-10-26] MEDS: Pantoprazole 40 MG Tab.CR PO SCH ×2 (08:49→21:40)
[2017-10-26] MEDS: Furosemide 20 MG Tab PO SCH (08:49)
[2017-10-26] MEDS: Spironolactone 25 MG Tab PO SCH (08:49)
[2017-10-26] MEDS: URSODIOL 600 MG PO SCH ×2 (08:51→21:42)
[2017-10-26] MEDS: Insulin Detemir 100 Units/ML 3 ML Pen SUBCUT SCH ×2 (08:51→21:41)
[2017-10-26] MEDS ORDERED: Magnesium Oxide 400 MG Tab PO ONE (09:00)
[2017-10-26] MEDS: cefTRIAXone 1 GM in Sodium Chloride 0.9% 100 ML IV SCH (11:32)
[2017-10-26] MEDS ORDERED: Warfarin 5 MG Tab PO ONE (18:00)
[2017-10-26] MEDS: Nortriptyline 25 MG Cap PO SCH (21:40)
[2017-10-27] MEDS: Insulin Aspart 100 Units/ML 3 ML Pen SUBCUT SCH ×2 (06:23→11:03)
[2017-10-27] MEDS: Insulin Detemir 100 Units/ML 3 ML Pen SUBCUT SCH (08:34)
[2017-10-27] MEDS: Rifaximin 550 MG Tab PO SCH (08:36)
[2017-10-27] MEDS: Lactulose Soln 10 GM/15 ML 30 ML UD Cup PO SCH (08:36)
[2017-10-27] MEDS: DULoxetine 30 MG Cap PO SCH (08:37)
[2017-10-27] MEDS: Furosemide 20 MG Tab PO SCH (08:37)
[2017-10-27] MEDS: Atenolol 25 MG Tab PO SCH (08:37)
[2017-10-27] MEDS: Pregabalin 75 MG Cap PO SCH (08:38)
[2017-10-27] MEDS: Pantoprazole 40 MG Tab.CR PO SCH (08:38)
[2017-10-27] MEDS: Spironolactone 25 MG Tab PO SCH (08:38)
[2017-10-27] MEDS: URSODIOL 600 MG PO SCH (08:39)
[2017-10-27 08:42] VITALS: BP 117/66
[2017-10-27] MEDS ORDERED: Magnesium Oxide 400 MG Tab PO ONE (10:15)
[2017-10-27] MEDS: cefTRIAXone 1 GM in Sodium Chloride 0.9% 100 ML IV SCH (10:58)
--- NOTE | 2017-10-27 11:23 | PCM.DCSUM1 ---
Discharge Summary - Hospital Course Free Text/Narrative:: Narcisa is a 62yo female admitted in nutritional chemist hours from ED for hyperglycemia with blood glucose >600 upon initial presentation to ED. She also has cirrhosis of the liver, PRATT etiology stated per patient since the 80's, with encephalopathy noted in ED, ammonia level was 65. She denies recent illness, no increased coughing, SOB, F/C/S, no N/V/D. She does have rt sided abd pain most days that has not worsened over the past week that her blood sugars have been elevated. She has had increased falls at home the past week, attributes it to peripheral neuropathy in her legs. is her care provider at home. Patient has insulin pump but she states was not working; she also admits that she is not sure how to troubleshoot her pump if needed. She see's Dr. March at [facility] for primary care and Zarina March for CDE. She see's EVITA Santos in [place]- she is unsure of her last visit- usually sees him every 6 months and thinks she may be due to see him "in a couple of weeks" but is not sure if appt is scheduled. She is very slow to respond. When asked if she feels confused and can't find her words she states "yes, I feel like that a lot lately". Does admit that she does not take her lactulose as she does not like to have loose stools. She is tired as she did not sleep much with nutritional chemist admission. She is hungry and eating breakfast. Patient is Full Code status PCP: Dr. March GI: Dr. Banks - Discharge Data Discharge Date: 10/27/17 (admit date 10/23/17) Discharge Disposition: Home, W Home Health Agency 06 Condition: Good - Discharge Diagnosis/Problem(s) (1) Hyperglycemia due to type 2 diabetes mellitus SNOMED Code(s): 997749462406278 ICD Code: E11.65 - TYPE 2 DIABETES MELLITUS WITH HYPERGLYCEMIA Status: Chronic Priority: High Current Visit: Yes Qualifiers: Diabetes mellitus termite exterminator helper insulin use: with termite exterminator helper use Qualified Code( s): E11.65 - Type 2 diabetes mellitus with hyperglycemia; Z79.4 - USP ( current) use of insulin; Z79.4 - USP (current) use of insulin; Z79.4 - termite exterminator helper (current) use of insulin; Z79.4 - termite exterminator helper (current) use of insulin (2) Hepatic encephalopathy SNOMED Code(s): 61889991 ICD Code: K72.90 - HEPATIC FAILURE, UNSPECIFIED WITHOUT COMA Status: Chronic Priority: High Current Visit: Yes (3) CKD (chronic kidney disease) SNOMED Code(s): 700631542 ICD Code: N18.9 - CHRONIC KIDNEY DISEASE, UNSPECIFIED Status: Chronic Priority: Medium Current Visit: Yes (4) Medical non-compliance SNOMED Code(s): 534149665 ICD Code: Z91.19 - PATIENT'S NONCOMPLIANCE W OTH MEDICAL TREATMENT AND REGIMEN Status: Chronic Priority: High Current Visit: Yes - Patient Summary/Data Operative Procedure(s) Performed: None Complications: None Consults: Consultations 10/23/17 06:22 Consult to Diabetic Nurse Specialist [CONS] Routine Consult to Solution Lead [CONS] Routine 10/23/17 06:24 Consult to Case Management [CONS] Routine 10/23/17 11:58 Consult to Occupational Therapy [OT Evaluation and Treatment] [CONS] Routine Consult to Physical Therapy [PT Evaluation and Treatment] [CONS] Routine 10/23/17 12:10 FINANCE ADMINISTRATOR Eval and Treat [FINANCE ADMINISTRATOR Evaluation and Treatment] [CONS] Routine Labs Pending at D/C: None Recommended Follow-up Testing/Procedures: Patient DC instructions: Home Health physical, occupational, speech, nursing, STRAIGHTEDGE MAN and home safety evaluation upon discharge ST recommend pt receive daily assistance with medication administration and management to remain compliant and safe. Recommend assistance for financial report service sales agent, ADLs and transportation. Pt hx, strong familial support and cognitive functioning adequate where 24/7 care would not be necessary at this time. Pt good candidate for cognitive re-evaluation at PCP recommendation. Check your blood sugars before meals, at bedtime and as needed. Nursing: Please ensure patient has a copy of the sliding scale insulin to be used at home and educate pt about this. Thank you. Please call C (or on-call [facility] nurse) upon pt d/c. Please remind MD to place [id number] in d/c summary. Follow up with PCP, Dr. March within 5-7 days of discharge, will need INR at that time Follow up with Bottle Label Inspector, Zarina March at that time too. Follow up with GI, Dr. Banks as soon as next available appointment. 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 -Insulin given in ED with improvement of sugars to 400's. No need for insulin drip -Accuchecks AC/HS with SSI -Levemir 10 units SubQ BID with SSI- sugars 379 to 163 the past 24 hours -Diabetic diet -CDE/Dietitian consults for DM and cirrhosis -A1C of 9.9 -R/O other causes/infectious etiology- UC pos for E. coli; Mycoplasma, Strep pneumo and influenza screen-all negative -TSH and Troponin: both wnl Cystitis -Uncomplicated -Risk factor: poorly controlled serum glucose -Pos for E. 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 Banks for GI- recommend follow up after discharge -Patient states cirrhosis is from "PRATT" and has had this since the "80' " -Cog eval with FINANCE ADMINISTRATOR; recommendations for assistance with most ADL and higher executive functioning-- team recommends 24/7 care at this time. S/p Multiple Falls at home -Continue PT/OT -TSH-normal -Hx of PN- recommend eval as outpatient with PCP Medical noncompliance- -Insulin pump "not working" for at least a week; patient is unaware and not sure how to trouble shoot or what to do if malfunctions, A1C of 9.9 indicates very poor control if patient should have insulin pump. -Has not seen PCP or CDE for >1 year -Is unsure of when she last saw Dr. Banks for cirrhosis but knows she sees or should see him every 6 months Chronic: HTN Liver Cirrhosis--f/up with GI after discharge SOB GERD OA Urinary Incontinence DM- as above Anemia--stable, no active bleeding Encephalopathy--acute on chronic Depression Hx/o VTE Plan: She is clinically stable and seems to be at baseline with mental status BS is stable at 200-300s where she normally runs at; has been mid 100's to 200' s the past 24 hours. Continue current treatment GI prophylax- home PPI BID DVT prophylax- on warfarin for PE Hx, cont and follow daily INR, SCD's and ambulation Continue PT/OT for balance/strengthening- recommend PT as OP/HH FINANCE ADMINISTRATOR for cog eval - recommend continued FINANCE ADMINISTRATOR as OP/HH CM for assist with DC planning---CM/SW for assist with placement vs 24/7 care at home. Patient is Full Code status PCP is Dr. March with [facility]---has not seen for over a year Day of discharge Face to face encounter with patient and family reveals patient will benefit from HHC, nursing, STRAIGHTEDGE MAN services, PT and FINANCE ADMINISTRATOR services. She will be homebound. Diagnosis of chronic hepatic encephalopathy and DM-- will require and benefit from FINANCE ADMINISTRATOR/cognitive therapy and PT for strength and balancing, nursing to assess VS and medication education/compliance with medications and blood sugar checks. She will require almost 24/7 care/supervision and assistance with ADL's/bathing which can be provided/assisted with STRAIGHTEDGE MAN services. She will follow up with PCP, Dr. March within one week of DC who will then assume [facility] service orders. - Patient Instructions Diet: Diabetic Diet Activity: As Tolerated Driving: Do Not Drive Showering/Bathing: May Shower Notify Provider of: Fever, Increased Pain, Swelling and Redness, Nausea and/or Vomiting - Discharge Plan Prescriptions/Med Rec: Insulin Aspart [NovoLOG] 0 unit SUBCUT QIDACANDBED #1 pen Insulin Detemir [Levemir] 8 unit SUBCUT BID #1 pen Lactulose [Cephulac] 20 gm PO BID #1 bottle Magnesium Oxide 400 mg PO DAILY #30 tablet Home Medications: Home Meds Aloe Vera 25 mg PO DAILY 01/08/14 [History] DULoxetine [Cymbalta] 60 mg PO BID 01/08/14 [History] Furosemide [Lasix] 20 mg PO DAILY 01/08/14 [History] Nadolol [Naldol] 20 mg PO DAILY 01/08/14 [History] Pantoprazole [ProTONIX] 40 mg PO BID 01/08/14 [History] Spironolactone 50 mg PO DAILY 01/08/14 [History] Ursodiol 600 cap PO BID 01/08/14 [History] Lyrica. 150 mg PO BID 05/12/14 [History] Nortriptyline 25 mg PO BEDTIME 05/12/14 [History] L Gasseri/B Bifidum/B Longum [Telanetix Capsule] 1 cap PO DAILY 03/21 [History] Rifaximin [Xifaxan] 550 mg PO BID 01/11/15 [History] Warfarin Sodium [Jantoven] 2.5 mg PO SUTUTHSA 10/23/17 [History] Warfarin Sodium [Jantoven] 5 mg PO MOWEFR 10/23/17 [History] Insulin Aspart [NovoLOG] 0 unit SUBCUT QIDACANDBED #1 pen 10/27/17 [Rx] Insulin Detemir [Levemir] 8 unit SUBCUT BID #1 pen 10/27/17 [Rx] Lactulose [Cephulac] 20 gm PO BID #1 bottle 10/27/17 [Rx] Magnesium Oxide 400 mg PO DAILY #30 tablet 10/27/17 [Rx] Patient Handouts: Insulin Storage and Care, Vitamin K Foods and Warfarin, Hepatic Encephalopathy, What You Need to Know About Warfarin, Diabetes Mellitus and Sick Day Management, Cirrhosis, Chronic Kidney Disease, Adult, [id number] , How to Avoid Diabetes Mellitus Problems Referrals: Zarina March [Other] - 10/28/17 1:00 pm (clinical operations specialist appointment. Call the clinic anytime you have problems with your insulin pump or diabetes concerns.) Jamshid March MD [Primary Care Provider] - (Primary doctor hospital follow-up.) - Discharge Summary/Plan Comment DC Time >30 min.: Yes (45 min) - General Info Date of Service: 10/27/17 Admission Dx/Problem (Free Text: Admission Diagnosis/Problem Admission Diagnosis/Problem Hyperglycemia Blood sugars cont to improve with levemir and SSI. Patient continues to be intermittently confused- baseline for her. No c/o from patient today. Cog eval with needs for assist with multiple ADL functions. Team recommending 30/03 care. Family states are able to provide this for her. Plans for DC today with [facility]. Functional Status: Reports: Pain Controlled, Tolerating Diet, Ambulating, Urinating. Denies: New Symptoms - Review of Systems General: Reports: No Symptoms, Weakness (generalized--baseline) HEENT: Reports: No Symptoms Pulmonary: Reports: No Symptoms Cardiovascular: Reports: No Symptoms Gastrointestinal: Reports: No Symptoms, Abdominal Pain (baseline- stable, unchanged). Denies: Nausea, Vomiting Genitourinary: Reports: No Symptoms Musculoskeletal: Reports: No Symptoms Skin: Reports: No Symptoms Neurological: Reports: Confusion (baseline; difficulty with word finding and difficult for patient to follow conversation today) Psychiatric: Reports: Confusion (baseline) - Patient Data Vitals - Most Recent: Last Vital Signs Temp 97.9 F 10/27/17 03:08 Pulse 74 10/27/17 08:39 Resp 18 10/27/17 03:08 BP 117/66 10/27/17 08:39 Pulse Ox 98 10/27/17 03:08 Weight - Most Recent: 229 lb 2 oz I&O - Last 24 hours: Intake & Output 10/26/17 10/27/17 10/27/17 22:59 06:59 14:59 Intake Total 790 500 Balance 790 500 Lab Results - Last 24 hrs: Laboratory Results - last 24 hr 10/26/17 10/26/17 10/27/17 Range/Units 17:11 20:57 06:17 WBC (3.98-10.04) K/mm3 RBC (3.98-5.22) M/mm3 Hgb (11.2-15.7) gm/L Hct (34.1-44.9) % MCV (79.4-94.8) fl MCH (25.6-32.2) pg MCHC (32.2-35.5) g/dl RDW Std Deviation (36.4-46.3) fL Plt Count (182-369) K/mm3 MPV (9.4-12.3) fl Neut % (Auto) (34.0-71.1) % Lymph % (Auto) (19.3-51.7) % Putnam % (Auto) (4.7-12.5) % Eos % (Auto) (0.7-5.8) Baso % (Auto) (0.1-1.2) % Neut # (Auto) (1.56-6.13) K/mm3 Lymph # (Auto) (1.18-3.74) K/mm3 Putnam # (Auto) (0.24-0.36) K/mm3 Eos # (Auto) (0.04-0.36) K/mm3 Baso # (Auto) (0.01-0.08) K/mm3 Manual Slide Review PT (8.0-13.0) SECONDS INR Sodium (136-145) mEq/L Potassium (3.5-5.1) mEq/L Chloride (98-107) mEq/L Carbon Dioxide (21-32) mEq/L Anion Gap (5-15) BUN (7-18) mg/dL Creatinine (0.55-1.02) mg/dL Est Cr Clr Drug Dosing mL/min Estimated GFR (MDRD) (>60) mL/min BUN/Creatinine Ratio (14-18) Glucose (74-106) mg/dL POC Glucose 334 H 361 H 137 H (70-105) mg/dL Calcium (8.5-10.1) mg/dL Magnesium (1.8-2.4) mg/dl 10/27/1718 10/27/17 Range/Units 09:18 09:18 09:18 WBC 1.53 L* (3.98-10.04) K/mm3 RBC 3.98 (3.98-5.22) M/mm3 Hgb 11.9 (11.2-15.7) gm/L Hct 35.1 (34.1-44.9) % MCV 88.2 (79.4-94.8) fl MCH 29.9 (25.6-32.2) pg MCHC 33.9 (32.2-35.5) g/dl RDW Std Deviation 53.7 H (36.4-46.3) fL Plt Count 59 L (182-369) K/mm3 MPV 11.0 (9.4-12.3) fl Neut % (Auto) 48.3 (34.0-71.1) % Lymph % (Auto) 37.3 (19.3-51.7) % Putnam % (Auto) 8.5 (4.7-12.5) % Eos % (Auto) 4.6 (0.7-5.8) Baso % (Auto) 1.3 H (0.1-1.2) % Neut # (Auto) 0.74 L (1.56-6.13) K/mm3 Lymph # (Auto) 0.57 L (1.18-3.74) K/mm3 Putnam # (Auto) 0.13 L (0.24-0.36) K/mm3 Eos # (Auto) 0.07 (0.04-0.36) K/mm3 Baso # (Auto) 0.02 (0.01-0.08) K/mm3 Manual Slide Review Abnormal smear PT 22.0 H (8.0-13.0) SECONDS INR 1.94 Sodium 139 (136-145) mEq/L Potassium 3.8 (3.5-5.1) mEq/L Chloride 107 (98-107) mEq/L Carbon Dioxide 25 (21-32) mEq/L Anion Gap 10.8 (5-15) BUN 10 (7-18) mg/dL Creatinine 1.2 H (0.55-1.02) mg/dL Est Cr Clr Drug Dosing 50.49 mL/min Estimated GFR (MDRD) 46 (>60) mL/min BUN/Creatinine Ratio 8.3 L (14-18) Glucose 142 H (74-106) mg/dL POC Glucose (70-105) mg/dL Calcium 8.6 (8.5-10.1) mg/dL Magnesium 1.6 L (1.8-2.4) mg/dl 10/27/17 Range/Units 10:53 WBC (3.98-10.04) K/mm3 RBC (3.98-5.22) M/mm3 Hgb (11.2-15.7) gm/L Hct (34.1-44.9) % MCV (79.4-94.8) fl MCH (25.6-32.2) pg MCHC (32.2-35.5) g/dl RDW Std Deviation (36.4-46.3) fL Plt Count (182-369) K/mm3 MPV (9.4-12.3) fl Neut % (Auto) (34.0-71.1) % Lymph % (Auto) (19.3-51.7) % Putnam % (Auto) (4.7-12.5) % Eos % (Auto) (0.7-5.8) Baso % (Auto) (0.1-1.2) % Neut # (Auto) (1.56-6.13) K/mm3 Lymph # (Auto) (1.18-3.74) K/mm3 Putnam # (Auto) (0.24-0.36) K/mm3 Eos # (Auto) (0.04-0.36) K/mm3 Baso # (Auto) (0.01-0.08) K/mm3 Manual Slide Review PT (8.0-13.0) SECONDS INR Sodium (136-145) mEq/L Potassium (3.5-5.1) mEq/L Chloride (98-107) mEq/L Carbon Dioxide (21-32) mEq/L Anion Gap (5-15) BUN (7-18) mg/dL Creatinine (0.55-1.02) mg/dL Est Cr Clr Drug Dosing mL/min Estimated GFR (MDRD) (>60) mL/min BUN/Creatinine Ratio (14-18) Glucose (74-106) mg/dL POC Glucose 262 H (70-105) mg/dL Calcium (8.5-10.1) mg/dL Magnesium (1.8-2.4) mg/dl Med Orders - Current: Current Medications Atenolol (Tenormin) 25 mg PO DAILY [facility] Last Admin: 10/27/17 08:37 Dose: 25 mg Duloxetine HCl (Cymbalta) 60 mg PO BID [facility] Last Admin: 10/27/17 08:37 Dose: 60 mg Furosemide (Lasix) 20 mg PO DAILY [facility] Last Admin: 10/27/17 08:37 Dose: 20 mg Ceftriaxone Sodium 1 gm/ (Sodium Chloride) 100 mls @ 200 mls/hr IV Q24H [facility] Last Admin: 10/27/17 10:58 Dose: 200 mls/hr Ibuprofen (Motrin) 400 mg PO Q6H PRN PRN Reason: Pain (mild 1-3) Last Admin: 10/25/17 09:22 Dose: 400 mg Insulin Aspart (Novolog) 0 unit SUBCUT QIDACANDBED [facility] PRN Reason: Protocol Last Admin: 10/27/17 11:03 Dose: 9 units Insulin Detemir (Levemir) 10 unit SUBCUT BID [facility] Last Admin: 10/27/17 08:34 Dose: 8 units Lactulose (Cephulac) 20 gm PO BID [facility] Last Admin: 10/27/17 08:36 Dose: 20 gm Lorazepam (Ativan) 0.5 mg IVPUSH Q8H PRN PRN Reason: Anxiety Magnesium Oxide (Magnesium Oxide) 400 mg PO DAILY [facility] Morphine Sulfate (Morphine) 1 mg IVPUSH Q6HR PRN PRN Reason: Pain Nadolol (Naldol) 20 mg PO DAILY [facility] Last Admin: 10/27/17 08:39 Dose: 20 mg Nortriptyline HCl (Nortriptyline) 25 mg PO BEDTIME [facility] Last Admin: 10/26/17 21:40 Dose: 25 mg Ondansetron HCl (Zofran Odt) 4 mg PO Q4H PRN PRN Reason: nausea, able to take PO Ondansetron HCl (Zofran) 4 mg IV Q4H PRN PRN Reason: Nausea/Vomiting Pantoprazole Sodium (Protonix) 40 mg PO BID [facility] Last Admin: 10/27/17 08:38 Dose: 40 mg Ursodiol 600mg Cap 0 each PO BID [facility] Last Admin: 10/27/17 08:39 Dose: Not Given Pregabalin (Lyrica) 150 mg PO BID [facility] Last Admin: 10/27/17 08:38 Dose: 150 mg Rifaximin (Xifaxan) 550 mg PO BID [facility] Last Admin: 10/27/17 08:36 Dose: 550 mg Spironolactone (Aldactone) 50 mg PO DAILY [facility] Last Admin: 10/27/17 08:38 Dose: 50 mg Temazepam (Restoril) 7.5 mg PO BEDTIME PRN PRN Reason: Sleep Warfarin Sodium (Pharmacy To Dose - Warfarin) 0 dose .XX ASDIRECTED PRN PRN Reason: RX TO DOSE COUMADIN Discontinued Medications Furosemide (Lasix) 20 mg PO DAILY [facility] Last Admin: 10/24/17 08:48 Dose: 20 mg Sodium Chloride (Normal Saline) 1,000 mls @ 999 mls/hr IV ONETIME ONE Stop: 10/23/17 01:25 Last Admin: 10/23/17 00:53 Dose: 999 mls/hr Sodium Chloride (Normal Saline) 1,000 mls @ 999 mls/hr IV ONETIME ONE Stop: 10/23/17 06:21 Last Admin: 10/23/17 05:30 Dose: 999 mls/hr Sodium Chloride (Normal Saline) 1,000 mls @ 200 mls/hr IV ASDIRECTED [facility] Last Admin: 10/23/17 14:07 Dose: 200 mls/hr Sodium Chloride (Normal Saline) 1,000 mls @ 100 mls/hr IV ASDIRECTED [facility] Last Admin: 10/24/17 10:35 Dose: 100 mls/hr Ceftriaxone Sodium 2 gm/ (Dextrose/Water) 100 mls @ 200 mls/hr IV Q24H [facility] Last Admin: 10/24/17 11:02 Dose: 200 mls/hr Magnesium Sulfate 2 gm/ Premix 50 mls @ 25 mls/hr IV ONETIME ONE Stop: 10/24/17 12:43 Last Admin: 10/24/17 12:13 Dose: 25 mls/hr Insulin Aspart (Novolog) 0 unit SUBCUT QIDACANDBED [facility] PRN Reason: Protocol Last Admin: 10/23/17 13:25 Dose: 12 units Insulin Human Regular (Humulin R) 10 unit IV ONETIME STA Stop: 10/23/17 00:48 Last Admin: 10/23/17 00:59 Dose: 10 unit Insulin Human Regular (Humulin R) 5 unit IV ONETIME ONE Stop: 10/23/17 05:21 Last Admin: 10/23/17 05:30 Dose: 5 units Lactulose (Cephulac) 20 gm PO ONETIME ONE Stop: 10/23/17 03:03 Last Admin: 10/23/17 03:49 Dose: 20 gm Lactulose (Cephulac) 20 gm PO TID [facility] Last Admin: 10/24/17 16:10 Dose: Not Given Lactulose (Cephulac) 20 gm PO ONETIME ONE Stop: 10/24/17 15:31 Last Admin: 10/24/17 15:49 Dose: 20 gm Magnesium Oxide (Magnesium Oxide) 800 mg PO ONETIME ONE Stop: 10/26/17 09:01 Last Admin: 10/26/17 08:48 Dose: 800 mg Magnesium Oxide (Magnesium Oxide) 800 mg PO ONETIME ONE Stop: 10/27/17 10:16 Last Admin: 10/27/17 11:03 Dose: 800 mg Potassium Chloride (Klor-Con M20) 40 meq PO ONETIME ONE Stop: 10/23/17 08:31 Last Admin: 10/23/17 09:59 Dose: 40 meq Potassium Chloride (Klor-Con M20) 20 meq PO ONETIME ONE Stop: 10/24/17 10:44 Last Admin: 10/24/17 11:03 Dose: 20 meq Warfarin Sodium (Coumadin) 5 mg PO DAILY@1800 [facility] Stop: 10/23/17 21:00 Last Admin: 10/23/17 18:47 Dose: 5 mg Warfarin Sodium (Coumadin) 2.5 mg PO ONETIME ONE Stop: 10/24/17 18:01 Last Admin: 10/24/17 17:33 Dose: 2.5 mg Warfarin Sodium (Coumadin) 2.5 mg PO ONETIME ONE Stop: 10/25/17 18:01 Last Admin: 10/25/17 17:32 Dose: 2.5 mg Warfarin Sodium (Coumadin) 5 mg PO ONETIME ONE Stop: 10/26/17 18:01 Last Admin: 10/26/17 17:25 Dose: 5 mg - Exam Quality Assessment: Reports: DVT Prophylaxis General: Reports: Alert, Cooperative, No Acute Distress HEENT: Reports: Pupils Equal, EOMI, Mucous Membr. Moist/[place], Scleral Icterus ( much improved from admit) Neck: Reports: Supple Lungs: Reports: Clear to Auscultation, Normal Respiratory Effort, Decreased Breath Sounds (mid to lower lobes bilat) Cardiovascular: Reports: Regular Rate, Regular Rhythm GI/Abdominal Exam: Normal Bowel Sounds, Soft, Tender (mild tender to upper quads -- unchanged from admission), Other (round/obese). No: Guarding, Rigid, Rebound (Female) Exam: Deferred Rectal (Female) Exam: Deferred Extremities: Normal Capillary Refill, Other (trace edema bilat to LE) Neurological: Reports: Other (mild expressive aphasia, difficult for patient to follow conversation, slow to respond) Psy/Mental Status: Reports: Alert *Q Meaningful Use (DIS) - VTE *Q VTE Criteria *Q: - Stroke *Q Stroke Criteria *Q: - AMI *Q AMI Criteria *Q:
[2017-10-28] MEDS ORDERED: Magnesium Oxide 400 MG Tab PO SCH (09:00)
== END 2017-10-27 14:44 | disposition home health service (06) | DRG 420 ==
LOC: JD.ED 23:45 → JD.MS 10-23 05:34
PROVIDERS: ADMIT Internal Medicine Cardiovascular Disease; ATTEND Internal Medicine Cardiovascular Disease
DX: E11.65 Type 2 diabetes mellitus with hyperglycemia (principal); Z79.4 Long term (current) use of insulin; Z96.41 Presence of insulin pump (external) (internal); K72.90 Hepatic failure, unspecified without coma; N30.90 Cystitis, unspecified without hematuria; D69.6 Thrombocytopenia, unspecified; Z86.718 Personal history of other venous thrombosis and embolism; Z79.01 Long term (current) use of anticoagulants; I10 Essential (primary) hypertension; K21.9 Gastro-esophageal reflux disease without esophagitis; R32 Unspecified urinary incontinence; M19.90 Unspecified osteoarthritis, unspecified site; F32.9 Major depressive disorder, single episode, unspecified; D64.9 Anemia, unspecified; Z79.899 Other long term (current) drug therapy; Z87.891 Personal history of nicotine dependence; Z88.1 Allergy status to other antibiotic agents; Z91.041 Radiographic dye allergy status; Z91.040 Latex allergy status; I12.9 Hypertensive chronic kidney disease with stage 1 through stage 4 chronic kidney disease, or unspecified chronic kidney disease; E11.22 Type 2 diabetes mellitus with diabetic chronic kidney disease; N18.9 Chronic kidney disease, unspecified; Z91.19 Patient's noncompliance with other medical treatment and regimen; Z91.81 History of falling
CPT/HCPCS: 36415; 36600; 71046; 71046-26; 80048; 80053; 80061; 81001; 82009; 82140; 82803; 82947; 82962; 83036; 83605; 83735; 84443; 84484; 85025; 85610; 86140; 86738; 87086; 87088; 87186; 87804; 87899; 93005; 93010; 96125-GN; 96361; 96374; 96376; 97110-GP; 97112-GP; 97116-GP; 97162-GP; 97165-GO; 97530-GO; 97530-GP; 99285; 99285-25; A9270-GY; J0696; J1815; J1815-GY; J3475; J7030; J7040; J7060; P9612

== ENCOUNTER 2017-11-06 12:01 | Inpatient (IN) | payer BC ==
[2017-11-06] MEDS ORDERED: Sodium Chloride 0.9% 10 ML Syringe FLUSH PRN (12:10)
[2017-11-06] MEDS ORDERED: Sodium Chloride 0.9% 1,000 ML IV SCH (12:15)
--- NOTE | 2017-11-06 12:47 | CT ---
Head CT Technique: Multiple axial sections through the brain were obtained. Intravenous contrast was not utilized. Comparison: No prior intracranial imaging. Findings: Ventricles along with basal cisterns and sulci over the convexities are mildly prominent no abnormal parenchymal densities are seen. No evidence of intracranial hemorrhage. No midline shift or mass effect is seen. No acute calvarial abnormality is seen. Opacified right maxillary sinus is seen. Moderate mucosal thickening is noted within the right ethmoid sinuses. Impression: 1. Minimal senescent change. 2. No acute intracranial abnormality is identified on noncontrast head CT study. 3. Chronic appearing sinus findings as described above. Diagnostic code #3
[2017-11-06] MEDS ORDERED: Lactulose Soln 10 GM/15 ML 30 ML UD Cup PO ONE (13:12)
--- NOTE | 2017-11-06 14:14 | EDM.PDOC ---
ED HPI GENERAL MEDICAL PROBLEM - General Chief Complaint: Neuro Symptoms/Deficits Stated Complaint: SLURRED SPEECH Time Seen by Provider: 11/06/17 12:04 Source of Information: Reports: Patient, Family History Limitations: Reports: No Limitations - History of Present Illness INITIAL COMMENTS - FREE TEXT/NARRATIVE: The patient presents with generalized weakness and confusion. She has non alcoholic cirrhosis of the liver. She was admitted over a week ago for hyperglycemia and high ammonia level. She was doing good until yesterday when she started getting confused and having generalized weakness. She went to her doctor Dr March and around that time this started. Her last time known well was 12pm yesterday. She denies fever, chills, cough, headache, chest pain or shortness of breath. She has no abdominal pain. She has nausea but no vomiting. Onset: Gradual Duration: Day(s): (Yesterday. Last time known well was 12pm yesterday) Severity: Moderate Improves with: Reports: None Worsens with: Reports: None Associated Symptoms: Reports: Nausea/Vomiting. Denies: Chest Pain, Cough, Fever /Chills, Headaches, Shortness of Breath - Related Data Allergies Allergy/AdvReac Type Severity Reaction Status Date / Time latex Allergy Unknown Rash Verified 11/06/17 12:29 Iodinated Contrast- Oral and Allergy Difficulty Verified 11/06/17 12:29 IV Dye Breathing [Iodinated Contrast Media - IV Dye] amoxicillin trihydrate AdvReac Unknown Vomiting Verified 11/06/17 12:29 [From Augmentin] potassium clavulanate AdvReac Unknown Vomiting Verified 11/06/17 12:29 [From Augmentin] Home Meds: Home Meds Aloe Vera 25 mg PO DAILY 01/08/14 [History] DULoxetine [Cymbalta] 60 mg PO BID 01/08/14 [History] Furosemide [Lasix] 20 mg PO DAILY 01/08/14 [History] Nadolol [Naldol] 20 mg PO DAILY 01/08/14 [History] Pantoprazole [ProTONIX] 40 mg PO BID 01/08/14 [History] Spironolactone 50 mg PO DAILY 01/08/14 [History] Ursodiol 600 cap PO BID 01/08/14 [History] Lyrica. 150 mg PO BID 05/12/14 [History] Nortriptyline 25 mg PO BEDTIME 05/12/14 [History] L Gasseri/B Bifidum/B Longum [Guidesly Capsule] 1 cap PO DAILY 03/21 [History] Rifaximin [Xifaxan] 550 mg PO BID 01/11/15 [History] Warfarin Sodium [Jantoven] 2.5 mg PO SUTUTHSA 10/23/17 [History] Warfarin Sodium [Jantoven] 5 mg PO MOWEFR 10/23/17 [History] Insulin Aspart [NovoLOG] 0 unit SUBCUT QIDACANDBED #1 pen 10/27/17 [Rx] Insulin Detemir [Levemir] 8 unit SUBCUT BID #1 pen 10/27/17 [Rx] Lactulose [Cephulac] 20 gm PO BID #1 bottle 10/27/17 [Rx] Magnesium Oxide 400 mg PO DAILY #30 tablet 10/27/17 [Rx] Past Medical History Cardiovascular History: Reports: Blood Clots/VTE/DVT, Hypertension Respiratory History: Reports: SOB Gastrointestinal History: Reports: GERD, Other (See Below) Other Gastrointestinal History: cirrohis of the liver Genitourinary History: Reports: Urinary Incontinence Musculoskeletal History: Reports: Arthritis, Fracture Neurological History: Reports: Neuropathy, Diabetic Other Neuro History: issues with remembering Psychiatric History: Reports: Depression Endocrine/Metabolic History: Reports: Diabetes, Type II Hematologic History: Reports: Anemia - Infectious Disease History Infectious Disease History: Reports: Chicken Pox, Measles - Past Surgical History Cardiovascular Surgical History: Reports: None GI Surgical History: Reports: Appendectomy, Cholecystectomy Female Surgical History: Reports: Hysterectomy Endocrine Surgical History: Reports: None Neurological Surgical History: Reports: None Musculoskeletal Surgical History: Reports: None Social & Family History - Family History Family Medical History: Noncontributory Neurological: Reports: CVA Endocrine/Metabolic: Reports: Diabetes Mellitus, Type 3c Oncologic: Reports: Liver, Lung, Metastatic - Tobacco Use Smoking Status *Q: Former Smoker Years of Tobacco use: 25 Packs/Tins Daily: 2 Used Tobacco, but Quit: Yes Month Tobacco Last Used: 1 Second Hand Smoke Exposure: No - Caffeine Use Caffeine Use: Reports: Soda - Alcohol Use Days Per Week of Alcohol Use: 0 Number of Drinks Per Day: 0 Total Drinks Per Week: 0 - Recreational Drug Use Recreational Drug Use: No - Living Situation & Occupation Living situation: Reports: , with Spouse Occupation: Unemployed ED ROS GENERAL - Review of Systems Review Of Systems: See Below Constitutional: Reports: No Symptoms HEENT: Reports: No Symptoms Respiratory: Reports: No Symptoms Cardiovascular: Reports: No Symptoms Endocrine: Reports: No Symptoms GI/Abdominal: Reports: Nausea. Denies: Abdominal Pain, Vomiting : Reports: No Symptoms Musculoskeletal: Reports: No Symptoms Skin: Reports: No Symptoms ED EXAM, NEURO - Physical Exam Exam: See Below Exam Limited By: No Limitations General Appearance: Alert, No Apparent Distress Ears: Normal External Exam Nose: Normal Inspection Head Exam: Atraumatic, Normocephalic Neck: Normal Inspection Respiratory/Chest: No Respiratory Distress, Lungs Clear, Normal Breath Sounds Cardiovascular: Regular Rate, Rhythm, No Edema, No Murmur GI/Abdominal: Soft, Non-Tender, No Organomegaly, No Mass Neurological: No Motor/Sensory Deficits, Other (Drowsy and confused) EKG INTERPRETATION EKG Date: 11/06/17 Time: 12:43 Rhythm: NSR Rate (Beats/Min): 66 [place]: Normal P-Wave: Present QRS: Normal ST-T: Normal QT: Normal Course - Vital Signs Last Recorded V/S: Last Vital Signs Temp 97.5 F 11/06/17 12:08 Pulse 75 11/06/17 12:08 Resp 13 11/06/17 12:08 BP 106/37 L 11/06/17 12:08 Pulse Ox 99 11/06/17 12:08 - Orders/Labs/Meds Orders: Active Orders 24 hr Category Date Time Status Cardiac Monitoring [RC] . DIRECTED Care 11/06/17 12:10 Active EKG Documentation Completion [RC] STAT Care 11/06/17 12:11 Active Oxygen Therapy [RC] PRN Care 11/06/17 12:10 Active Peripheral IV Care [RC] . DIRECTED Care 11/06/17 12:11 Active UA W/MICROSCOPIC [URIN] Stat Lab 11/06/17 14:05 Received Sodium Chloride 0.9% [Normal Saline] 1,000 ml Med 11/06/17 12:15 Active IV .BOLUS Sodium Chloride 0.9% [Saline Flush] Med 11/06/17 12:10 Active 10 ml FLUSH ASDIRECTED PRN Peripheral IV Insertion Adult [OM.PC] Stat Oth 11/06/17 12:10 Ordered Medication Orders Sodium Chloride (Normal Saline) 1,000 mls @ 1,000 mls/hr IV .BOLUS PAUL Last Admin: 11/06/17 12:43 Dose: 1,000 mls/hr Sodium Chloride (Saline Flush) 10 ml FLUSH ASDIRECTED PRN PRN Reason: Keep Vein Open Last Admin: 11/06/17 12:44 Dose: 10 ml Labs: Laboratory Tests 11/06/17 11/06/17 11/06/17 Range/Units 12:10 12:10 12:10 WBC 2.41 L* (3.98-10.04) K/mm3 RBC 3.84 L (3.98-5.22) M/mm3 Hgb 11.3 (11.2-15.7) gm/L Hct 34.9 (34.1-44.9) % MCV 90.9 (79.4-94.8) fl MCH 29.4 (25.6-32.2) pg MCHC 32.4 (32.2-35.5) g/dl RDW Std Deviation 54.1 H (36.4-46.3) fL Plt Count 97 L (182-369) K/mm3 MPV 10.8 (9.4-12.3) fl Neut % (Auto) 48.3 (34.0-71.1) % Lymph % (Auto) 34.4 (19.3-51.7) % [place] % (Auto) 12.4 (4.7-12.5) % Eos % (Auto) 3.7 (0.7-5.8) Baso % (Auto) 1.2 (0.1-1.2) % Neut # (Auto) 1.16 L (1.56-6.13) K/mm3 Lymph # (Auto) 0.83 L (1.18-3.74) K/mm3 [place] # (Auto) 0.30 (0.24-0.36) K/mm3 Eos # (Auto) 0.09 (0.04-0.36) K/mm3 Baso # (Auto) 0.03 (0.01-0.08) K/mm3 Manual Slide Review Abnormal smear PT (8.0-13.0) SECONDS INR APTT (22-36) SECONDS VBG pH (7.30-7.40) Sodium 140 (136-145) mEq/L Potassium 3.7 (3.5-5.1) mEq/L Chloride 105 (98-107) mEq/L Carbon Dioxide 31 (21-32) mEq/L Anion Gap 7.7 (5-15) BUN 20 H (7-18) mg/dL Creatinine 1.5 H (0.55-1.02) mg/dL Est Cr Clr Drug Dosing 40.23 mL/min Estimated GFR (MDRD) 35 (>60) mL/min BUN/Creatinine Ratio 13.3 L (14-18) Glucose 222 H (74-106) mg/dL Serum Osmolality 311 H (280-300) mosm/kg Calcium 9.0 (8.5-10.1) mg/dL Magnesium 2.1 (1.8-2.4) mg/dl Total Bilirubin 1.5 H (0.2-1.0) mg/dL AST 42 H (15-37) U/L ALT 24 (14-59) U/L Alkaline Phosphatase 184 H (46-116) U/L Ammonia (11-32) umol/L Troponin I < 0.017 (0.00-0.056) ng/mL Total Protein 8.1 (6.4-8.2) g/dl Albumin 2.7 L (3.4-5.0) g/dl Globulin 5.4 gm/dL Albumin/Globulin Ratio 0.5 L (1-2) Ethyl Alcohol 0.00 (0.00) gm% Ketones 0.2 (0.0-0.3) mM 11/06/17 11/06/17 11/06/17 Range/Units 12:10 12:12 12:33 WBC (3.98-10.04) K/mm3 RBC (3.98-5.22) M/mm3 Hgb (11.2-15.7) gm/L Hct (34.1-44.9) % MCV (79.4-94.8) fl MCH (25.6-32.2) pg MCHC (32.2-35.5) g/dl RDW Std Deviation (36.4-46.3) fL Plt Count (182-369) K/mm3 MPV (9.4-12.3) fl Neut % (Auto) (34.0-71.1) % Lymph % (Auto) (19.3-51.7) % [place] % (Auto) (4.7-12.5) % Eos % (Auto) (0.7-5.8) Baso % (Auto) (0.1-1.2) % Neut # (Auto) (1.56-6.13) K/mm3 Lymph # (Auto) (1.18-3.74) K/mm3 [place] # (Auto) (0.24-0.36) K/mm3 Eos # (Auto) (0.04-0.36) K/mm3 Baso # (Auto) (0.01-0.08) K/mm3 Manual Slide Review PT 24.0 H (8.0-13.0) SECONDS INR 2.22 APTT 35 (22-36) SECONDS VBG pH 7.45 H (7.30-7.40) Sodium (136-145) mEq/L Potassium (3.5-5.1) mEq/L Chloride (98-107) mEq/L Carbon Dioxide (21-32) mEq/L Anion Gap (5-15) BUN (7-18) mg/dL Creatinine (0.55-1.02) mg/dL Est Cr Clr Drug Dosing mL/min Estimated GFR (MDRD) (>60) mL/min BUN/Creatinine Ratio (14-18) Glucose (74-106) mg/dL Serum Osmolality (280-300) mosm/kg Calcium (8.5-10.1) mg/dL Magnesium (1.8-2.4) mg/dl Total Bilirubin (0.2-1.0) mg/dL AST (15-37) U/L ALT (14-59) U/L Alkaline Phosphatase (46-116) U/L Ammonia 113 H (11-32) umol/L Troponin I (0.00-0.056) ng/mL Total Protein (6.4-8.2) g/dl Albumin (3.4-5.0) g/dl Globulin gm/dL Albumin/Globulin Ratio (1-2) Ethyl Alcohol (0.00) gm% Ketones (0.0-0.3) mM Meds: Medications Generic Name Dose Route Start Last Admin Trade Name Freq PRN Reason Stop Dose Admin Sodium Chloride 1,000 mls @ 1,000 mls/hr 11/06/17 12:15 11/06/17 12:43 Normal Saline IV 1,000 mls/hr .BOLUS PAUL Administration Sodium Chloride 10 ml 11/06/17 12:10 11/06/17 12:44 Saline Flush FLUSH 10 ml ASDIRECTED PRN Administration Keep Vein Open Discontinued Medications Generic Name Dose Route Start Last Admin Trade Name Kiah PRN Reason Stop Dose Admin Lactulose 20 gm 11/06/17 13:12 11/06/17 13:53 Cephulac PO 11/06/17 13:13 20 gm ONETIME ONE Administration - Re-Assessments/Exams Free Text/Narrative Re-Assessment/Exam: 11/06/17 14:14 I ordered an IV NS at 125mL/hr, labs, EKG and a CT of her head. Her EKG shows a NSR with no acute changes. The CT of her head shows minimal senescent change. No acute intracranial abnormality is identified on noncontrast head CT study. Chronic appearing sinus findings. Her WBC is low at 2.41. Her INR is therapeutic at 2.22. Her pH is elevated at 7.45. Her creatinine is elevated at 1.5. Her glucose was elevated at 222. Her serum osmolality is elevated at 311. Her total bili is elevated at 1.5. Her AST is elevated at 42. Her Alk Phos is elevated at 184. Her ammonia level is 113. Her troponin is negative. Her ETOH is negative. Her Ketones are 0.2. It appears this confusion and weakness if from the elevated ammonia. I called Dr Byrd to get her admitted. She will get back to me. 11/06/17 14:34 Dr Byrd came to see the patient and she accepted the patient. Departure - Departure Time of Disposition: 14:35 Disposition: Admitted As Inpatient 68 Condition: Poor Clinical Impression: Leukopenia, Chronic liver disease and cirrhosis, Hepatic encephalopathy, Medical non-compliance, Hyperammonemia Hyperglycemia due to type 2 diabetes mellitus Qualifiers: Diabetes mellitus roasterman insulin use: with halfway use Qualified Code(s): E11.65 - Type 2 diabetes mellitus with hyperglycemia; Z79.4 - half-way (current ) use of insulin; Z79.4 - moth exterminator (current) use of insulin; Z79.4 - moth exterminator (current) use of insulin; Z79.4 - moth exterminator (current) use of insulin CKD (chronic kidney disease) Qualifiers: Chronic kidney disease stage: stage 1 Qualified Code(s): N18.1 - Chronic kidney disease, stage 1 - Discharge Information Referrals: Jamshid March MD [Primary Care Provider] - Forms: ED Department Discharge - My Orders Last 24 Hours: My Active Orders 11/06/17 12:10 Cardiac Monitoring [RC] . DIRECTED Oxygen Therapy [RC] PRN Sodium Chloride 0.9% [Saline Flush] 10 ml FLUSH ASDIRECTED PRN Peripheral IV Insertion Adult [OM.PC] Stat 11/06/17 12:11 EKG Documentation Completion [RC] STAT Peripheral IV Care [RC] . DIRECTED 11/06/17 12:15 Sodium Chloride 0.9% [Normal Saline] 1,000 ml IV .BOLUS 11/06/17 14:05 UA W/MICROSCOPIC [URIN] Stat - Assessment/Plan Last 24 Hours: My Active Orders 11/06/17 12:10 Cardiac Monitoring [RC] . DIRECTED Oxygen Therapy [RC] PRN Sodium Chloride 0.9% [Saline Flush] 10 ml FLUSH ASDIRECTED PRN Peripheral IV Insertion Adult [OM.PC] Stat 11/06/17 12:11 EKG Documentation Completion [RC] STAT Peripheral IV Care [RC] . DIRECTED 11/06/17 12:15 Sodium Chloride 0.9% [Normal Saline] 1,000 ml IV .BOLUS 11/06/17 14:05 UA W/MICROSCOPIC [URIN] Stat
--- NOTE | 2017-11-06 16:57 | PCM.HP ---
H&P History of Present Illness - General Date of Service: 11/06/17 Source of Information: Patient, Family, Provider History Limitations: Reports: No Limitations - History of Present Illness Initial Comments - Free Text/Narative: 62 year old female with PRATT presents (within 12 days after a recent discharge from [facility]) for acute confusion after failing to take Lactulose as prescribed. The medical non compliance was addressed with the patient and her family in the ED with Flory SWIFT and the hospitalist on duty. It was discovered that the patient had only taken 3-4 doses of Lactulose this week. It is a liquid and therefore not included with her medication tray. The patient and her spouse admit to not remembering. A brief discussion about her diabetic medication as well as cirrhotic medications occurred in the ED. Suggestions were made regarding remembering her medications to prevent abrupt change in mental status. Everyone present including her daughter, spouse and the patient voiced commitment to improving their level of mindfulness. Thus committed to being adherent to the current medical regimen. Onset of Symptoms: Reports: Gradual Symptom Onset Date: 11/04/17 Duration of Symptoms: Reports: Day(s):, Getting Worse Location: Reports: Generalized Quality: Reports: Same as Previous Episode Severity: Moderate Improves with: Reports: Medication Worsens with: Reports: Medication (no lactulose) Associated Symptoms: Reports: Confusion, Nausea/Vomiting, Weakness - Related Data Allergies/Adverse Reactions: Allergies Allergy/AdvReac Type Severity Reaction Status Date / Time latex Allergy Unknown Rash Verified 11/06/17 16:51 Iodinated Contrast- Oral and Allergy Difficulty Verified 11/06/17 16:51 IV Dye Breathing [Iodinated Contrast Media - IV Dye] amoxicillin trihydrate AdvReac Unknown Vomiting Verified 11/06/17 16:51 [From Augmentin] potassium clavulanate AdvReac Unknown Vomiting Verified 11/06/17 16:51 [From Augmentin] Home Medications: Home Meds Aloe Vera 25 mg PO DAILY 01/08/14 [History] DULoxetine [Cymbalta] 60 mg PO BID 01/08/14 [History] Furosemide [Lasix] 20 mg PO DAILY 01/08/14 [History] Nadolol [Naldol] 20 mg PO DAILY 01/08/14 [History] Pantoprazole [ProTONIX] 40 mg PO BID 01/08/14 [History] Spironolactone 50 mg PO DAILY 01/08/14 [History] Ursodiol 600 cap PO BID 01/08/14 [History] Lyrica. 150 mg PO BID 05/12/14 [History] Nortriptyline 25 mg PO BEDTIME 05/12/14 [History] L Gasseri/B Bifidum/B Longum [oohilove Capsule] 1 cap PO DAILY 03/21 [History] Rifaximin [Xifaxan] 550 mg PO BID 01/11/15 [History] Warfarin Sodium [Jantoven] 2.5 mg PO SUTUTHSA 10/23/17 [History] Warfarin Sodium [Jantoven] 5 mg PO MOWEFR 10/23/17 [History] Insulin Aspart [NovoLOG] 0 unit SUBCUT QIDACANDBED #1 pen 10/27/17 [Rx] Lactulose [Cephulac] 20 gm PO BID #1 bottle 10/27/17 [Rx] Magnesium Oxide 400 mg PO DAILY #30 tablet 10/27/17 [Rx] Dulaglutide [Trulicity] 1.5 mg SQ WEEKLY 11/06/17 [History] metroNIDAZOLE [Flagyl] 500 mg PO DAILY 11/06/17 [History] Past Medical History Cardiovascular History: Reports: Blood Clots/VTE/DVT, Hypertension Respiratory History: Reports: SOB Gastrointestinal History: Reports: GERD, Other (See Below) Other Gastrointestinal History: cirrohis of the liver Genitourinary History: Reports: Urinary Incontinence Musculoskeletal History: Reports: Arthritis, Fracture Neurological History: Reports: Neuropathy, Diabetic Other Neuro History: issues with remembering Psychiatric History: Reports: Depression Endocrine/Metabolic History: Reports: Diabetes, Type II Hematologic History: Reports: Anemia - Infectious Disease History Infectious Disease History: Reports: Chicken Pox, Measles - Past Surgical History Cardiovascular Surgical History: Reports: None GI Surgical History: Reports: Appendectomy, Cholecystectomy Female Surgical History: Reports: Hysterectomy Endocrine Surgical History: Reports: None Neurological Surgical History: Reports: None Musculoskeletal Surgical History: Reports: None Social & Family History - Family History Family Medical History: Noncontributory Neurological: Reports: CVA Endocrine/Metabolic: Reports: Diabetes Mellitus, Type 3c Oncologic: Reports: Liver, Lung, Metastatic - Tobacco Use Smoking Status *Q: Former Smoker Years of Tobacco use: 25 Packs/Tins Daily: 2 Used Tobacco, but Quit: Yes Month Tobacco Last Used: 1 Second Hand Smoke Exposure: No - Caffeine Use Caffeine Use: Reports: Soda - Alcohol Use Days Per Week of Alcohol Use: 0 Number of Drinks Per Day: 0 Total Drinks Per Week: 0 - Recreational Drug Use Recreational Drug Use: No - Living Situation & Occupation Living situation: Reports: , with Spouse Occupation: Unemployed H&P Review of Systems - Review of Systems: Review Of Systems: See Below General: Reports: Weakness, Decreased Appetite HEENT: Reports: No Symptoms Pulmonary: Reports: No Symptoms Cardiovascular: Reports: No Symptoms Gastrointestinal: Reports: No Symptoms Genitourinary: Reports: No Symptoms Musculoskeletal: Reports: No Symptoms Skin: Reports: No Symptoms Psychiatric: Reports: Confusion Neurological: Reports: Confusion Hematologic/Lymphatic: Reports: No Symptoms Immunologic: Reports: No Symptoms Exam - Exam Exam: See Below - Vital Signs Vital Signs: Last Vital Signs Temp 36.4 C 11/06/17 12:08 Pulse 75 11/06/17 12:08 Resp 13 11/06/17 12:08 BP 106/37 L 11/06/17 12:08 Pulse Ox 99 11/06/17 12:08 Weight: 99.79 kg - Exam Quality Assessment: DVT Prophylaxis General: Alert, Oriented, Cooperative HEENT: Conjunctiva Clear, Nares Patent, Normal Nasal Septum, Pupils Equal, Pupils Reactive, PERRLA Neck: Trachea Midline Lungs: Normal Respiratory Effort Cardiovascular: Regular Rate, Regular Rhythm GI/Abdominal Exam: Normal Bowel Sounds, Soft, Non-Tender, No Organomegaly, No Distention (Female) Exam: Deferred Rectal (Female) Exam: Deferred Back Exam: Normal Inspection Extremities: Normal Inspection, No Pedal Edema Skin: Warm Neurological: Cranial Nerves Intact Neuro Extensive - Mental Status: Alert, Oriented x3, Normal Mood/Affect, Normal Cognition, Memory Intact Neuro Extensive - Motor, Sensory, Reflexes: CN II-XII Intact Psychiatric: Alert, Normal Affect, Normal Mood - Patient Data Result Diagrams: 11/06/17 12:10 11/06/17 12:10 *Q Meaningful Use (ADM) - VTE *Q VTE Criteria *Q: - Stroke *Q Stroke Criteria *Q: - AMI *Q AMI Criteria *Q: - Problem List (1) Chronic liver disease and cirrhosis SNOMED Code(s): 874511326 ICD Code: K74.60 - UNSPECIFIED CIRRHOSIS OF LIVER; K76.9 - LIVER DISEASE, UNSPECIFIED Status: Acute Current Visit: Yes (2) Hyperammonemia SNOMED Code(s): 1484706 ICD Code: E72.20 - DISORDER OF UREA CYCLE METABOLISM, UNSPECIFIED Status: Acute Current Visit: Yes (3) Leukopenia SNOMED Code(s): 80666319 ICD Code: D72.819 - DECREASED WHITE BLOOD CELL COUNT, UNSPECIFIED Status: Acute Current Visit: Yes (4) CKD (chronic kidney disease) SNOMED Code(s): 577370100 ICD Code: N18.9 - CHRONIC KIDNEY DISEASE, UNSPECIFIED Status: Chronic Priority: Medium Current Visit: Yes Qualifiers: Chronic kidney disease stage: stage 1 Qualified Code(s): N18.1 - Chronic kidney disease, stage 1 (5) Hepatic encephalopathy SNOMED Code(s): 74615920 ICD Code: K72.90 - HEPATIC FAILURE, UNSPECIFIED WITHOUT COMA Status: Chronic Priority: High Current Visit: Yes (6) Hyperglycemia due to type 2 diabetes mellitus SNOMED Code(s): 357512580458771 ICD Code: E11.65 - TYPE 2 DIABETES MELLITUS WITH HYPERGLYCEMIA Status: Chronic Priority: High Current Visit: Yes Qualifiers: Diabetes mellitus ferry terminal supervisor insulin use: with snf use Qualified Code( s): E11.65 - Type 2 diabetes mellitus with hyperglycemia; Z79.4 - FDC ( current) use of insulin; Z79.4 - FDC (current) use of insulin; Z79.4 - FDC (current) use of insulin; Z79.4 - termite inspector (current) use of insulin (7) Medical non-compliance SNOMED Code(s): 378130985 ICD Code: Z91.19 - PATIENT'S NONCOMPLIANCE W OTH MEDICAL TREATMENT AND REGIMEN Status: Chronic Priority: High Current Visit: Yes Problem List Initiated/Reviewed/Updated: Yes Orders Last 24hrs: Medication Orders Sodium Chloride (Normal Saline) 1,000 mls @ 1,000 mls/hr IV .BOLUS PAUL Last Admin: 11/06/17 12:43 Dose: 1,000 mls/hr Sodium Chloride (Saline Flush) 10 ml FLUSH ASDIRECTED PRN PRN Reason: Keep Vein Open Last Admin: 11/06/17 12:44 Dose: 10 ml Assessment/Plan Comment:: Impression: Acute mental status change Hepatic encephalopathy CLD with cirrhosis Hyperglycemia with DM type II Medical noncompliance Chronic Leukopenia HTN History of coagulopathy UI GERD Depression Plan: IVF 2 liters Clear liquids advance as tolerated Resume Lactulose, increase amount and frequency, 24 hours Home meds Insulin SS Cirrhotic diet education Daily labs DVT/GI prophylaxis Consult PT/OT/CM
[2017-11-06] MEDS ORDERED: 50% Dextrose in Water 50 ML Syringe IVPUSH PRN (17:42)
[2017-11-06] MEDS: Lactulose Soln 10 GM/15 ML 30 ML UD Cup PO SCH ×2 (18:00→20:51)
[2017-11-06] MEDS ORDERED: Sodium Chloride 0.9% 1,000 ML IV ONE (18:00)
[2017-11-06] MEDS: Pregabalin 75 MG Cap PO SCH (20:52)
[2017-11-06] MEDS: Nortriptyline 25 MG Cap PO SCH (20:52)
[2017-11-06] MEDS: DULoxetine 30 MG Cap PO SCH (20:53)
[2017-11-06] MEDS: Pantoprazole 40 MG Tab.CR PO SCH (20:53)
[2017-11-06] MEDS: Rifaximin 550 MG Tab PO SCH (20:53)
[2017-11-06] MEDS: Insulin Aspart 100 Units/ML 3 ML Pen SUBCUT SCH (21:07)
[2017-11-07] MEDS ORDERED: Acetaminophen 325 MG Tab PO PRN (01:22)
[2017-11-07] MEDS: Insulin Aspart 100 Units/ML 3 ML Pen SUBCUT SCH ×5 (09:09→21:28)
[2017-11-07] MEDS: metroNIDAZOLE 500 MG Tab PO SCH (09:11)
[2017-11-07] MEDS: Spironolactone 25 MG Tab PO SCH (09:12)
[2017-11-07] MEDS: Pregabalin 75 MG Cap PO SCH ×2 (09:12→20:16)
[2017-11-07] MEDS: Pantoprazole 40 MG Tab.CR PO SCH ×2 (09:13→20:16)
[2017-11-07] MEDS: Furosemide 20 MG Tab PO SCH (09:13)
[2017-11-07] MEDS: DULoxetine 30 MG Cap PO SCH ×2 (09:13→20:16)
[2017-11-07] MEDS: Rifaximin 550 MG Tab PO SCH ×2 (09:14→20:15)
[2017-11-07] MEDS: Magnesium Oxide 400 MG Tab PO SCH (09:14)
[2017-11-07] MEDS: Lactulose Soln 10 GM/15 ML 30 ML UD Cup PO SCH (09:14)
--- NOTE | 2017-11-07 09:29 | PCM.PN ---
- General Info Date of Service: 11/07/17 Functional Status: Reports: Tolerating Diet, Urinating - Review of Systems General: Reports: No Symptoms HEENT: Reports: No Symptoms Pulmonary: Reports: No Symptoms Cardiovascular: Reports: No Symptoms Gastrointestinal: Reports: No Symptoms Genitourinary: Reports: No Symptoms Musculoskeletal: Reports: No Symptoms Skin: Reports: No Symptoms Neurological: Reports: No Symptoms Psychiatric: Reports: No Symptoms - Patient Data Vitals - Most Recent: Last Vital Signs Temp 36.6 C 11/07/17 08:06 Pulse 69 11/07/17 08:06 Resp 12 11/07/17 08:06 BP 98/48 L 11/07/17 08:13 Pulse Ox 91 L 11/07/17 08:06 Weight - Most Recent: 103.691 kg I&O - Last 24 Hours: Intake & Output 11/06/17 11/07/17 11/07/17 22:59 06:59 14:59 Intake Total 600 2200 Output Total 204 Balance 600 1995 Lab Results Last 24 Hours: Laboratory Results - last 24 hr 11/06/17 11/06/17 11/07/17 Range/Units 17:53 20:37 06:27 WBC 2.14 L* (3.98-10.04) K/mm3 RBC 3.64 L (3.98-5.22) M/mm3 Hgb 10.5 L (11.2-15.7) gm/L Hct 33.2 L (34.1-44.9) % MCV 91.2 (79.4-94.8) fl MCH 28.8 (25.6-32.2) pg MCHC 31.6 L (32.2-35.5) g/dl RDW Std Deviation 54.0 H (36.4-46.3) fL Plt Count 91 L (182-369) K/mm3 MPV 10.8 (9.4-12.3) fl Neut % (Auto) 44.4 (34.0-71.1) % Lymph % (Auto) 37.4 (19.3-51.7) % [place] % (Auto) 12.6 H (4.7-12.5) % Eos % (Auto) 4.2 (0.7-5.8) Baso % (Auto) 0.9 (0.1-1.2) % Neut # (Auto) 0.95 L (1.56-6.13) K/mm3 Lymph # (Auto) 0.80 L (1.18-3.74) K/mm3 [place] # (Auto) 0.27 (0.24-0.36) K/mm3 Eos # (Auto) 0.09 (0.04-0.36) K/mm3 Baso # (Auto) 0.02 (0.01-0.08) K/mm3 Manual Slide Review Abnormal smear Sodium (136-145) mEq/L Potassium (3.5-5.1) mEq/L Chloride (98-107) mEq/L Carbon Dioxide (21-32) mEq/L Anion Gap (5-15) BUN (7-18) mg/dL Creatinine (0.55-1.02) mg/dL Est Cr Clr Drug Dosing mL/min Estimated GFR (MDRD) (>60) mL/min BUN/Creatinine Ratio (14-18) Glucose (74-106) mg/dL POC Glucose 152 H 251 H (70-105) mg/dL Calcium (8.5-10.1) mg/dL Magnesium (1.8-2.4) mg/dl Ammonia (11-32) umol/L C-Reactive Protein (<1.0) mg/dL 11/07/17 11/07/17 11/07/17 Range/Units 06:27 06:27 07:47 WBC (3.98-10.04) K/mm3 RBC (3.98-5.22) M/mm3 Hgb (11.2-15.7) gm/L Hct (34.1-44.9) % MCV (79.4-94.8) fl MCH (25.6-32.2) pg MCHC (32.2-35.5) g/dl RDW Std Deviation (36.4-46.3) fL Plt Count (182-369) K/mm3 MPV (9.4-12.3) fl Neut % (Auto) (34.0-71.1) % Lymph % (Auto) (19.3-51.7) % [place] % (Auto) (4.7-12.5) % Eos % (Auto) (0.7-5.8) Baso % (Auto) (0.1-1.2) % Neut # (Auto) (1.56-6.13) K/mm3 Lymph # (Auto) (1.18-3.74) K/mm3 [place] # (Auto) (0.24-0.36) K/mm3 Eos # (Auto) (0.04-0.36) K/mm3 Baso # (Auto) (0.01-0.08) K/mm3 Manual Slide Review Sodium 141 (136-145) mEq/L Potassium 3.7 (3.5-5.1) mEq/L Chloride 107 (98-107) mEq/L Carbon Dioxide 27 (21-32) mEq/L Anion Gap 10.7 (5-15) BUN 15 (7-18) mg/dL Creatinine 1.3 H (0.55-1.02) mg/dL Est Cr Clr Drug Dosing 46.42 mL/min Estimated GFR (MDRD) 42 (>60) mL/min BUN/Creatinine Ratio 11.5 L (14-18) Glucose 163 H (74-106) mg/dL POC Glucose 158 H (70-105) mg/dL Calcium 8.4 L (8.5-10.1) mg/dL Magnesium 1.9 (1.8-2.4) mg/dl Ammonia 41 H (11-32) umol/L C-Reactive Protein < 0.2 (<1.0) mg/dL Med Orders - Current: Current Medications Acetaminophen (Tylenol) 650 mg PO Q4H PRN PRN Reason: Pain Dextrose/Water (Dextrose 50% In Water) 50 ml IVPUSH ASDIRECTED PRN PRN Reason: Hypoglycemia Duloxetine HCl (Cymbalta) 60 mg PO BID [facility] Last Admin: 11/07/17 09:13 Dose: 60 mg Furosemide (Lasix) 20 mg PO DAILY [facility] Last Admin: 11/07/17 09:13 Dose: 20 mg Insulin Aspart (Novolog) 0 unit SUBCUT QIDACANDBED [facility] PRN Reason: Protocol Last Admin: 11/07/17 09:09 Dose: 1 units Lactulose (Cephulac) 40 gm PO TID [facility] Last Admin: 11/07/17 09:14 Dose: 40 gm Magnesium Oxide (Magnesium Oxide) 400 mg PO DAILY [facility] Last Admin: 11/07/17 09:14 Dose: 400 mg Metronidazole (Flagyl) 500 mg PO DAILY [facility] Last Admin: 11/07/17 09:11 Dose: 500 mg Nadolol (Naldol) 20 mg PO DAILY [facility] Non-Formulary Medication (Dulaglutide [Trulicity]) 1.5 mg SQ We@0900 [facility] Non-Formulary Medication (Ursodiol) 600 cap PO BID [facility] Nortriptyline HCl (Nortriptyline) 25 mg PO BEDTIME [facility] Last Admin: 11/06/17 20:52 Dose: 25 mg Pantoprazole Sodium (Protonix) 40 mg PO BID [facility] Last Admin: 11/07/17 09:13 Dose: 40 mg Pregabalin (Lyrica) 150 mg PO BID [facility] Last Admin: 11/07/17 09:12 Dose: 150 mg Rifaximin (Xifaxan) 550 mg PO BID [facility] Last Admin: 11/07/17 09:14 Dose: 550 mg Sodium Chloride (Saline Flush) 10 ml FLUSH ASDIRECTED PRN PRN Reason: Keep Vein Open Last Admin: 11/06/17 12:44 Dose: 10 ml Spironolactone (Aldactone) 50 mg PO DAILY [facility] Last Admin: 11/07/17 09:12 Dose: 50 mg Warfarin Sodium (Coumadin) 5 mg PO MoWeFr@1800 [facility] Warfarin Sodium (Coumadin) 2.5 mg PO SuTuThSa@1800 [facility] Discontinued Medications Sodium Chloride (Normal Saline) 1,000 mls @ 1,000 mls/hr IV .BOLUS [facility] Last Admin: 11/06/17 12:43 Dose: 1,000 mls/hr Sodium Chloride (Normal Saline) 1,000 mls @ 1,000 mls/hr IV ONETIME ONE Stop: 11/06/17 18:59 Last Admin: 11/06/17 18:02 Dose: 1,000 mls/hr Lactulose (Cephulac) 20 gm PO ONETIME ONE Stop: 11/06/17 13:13 Last Admin: 11/06/17 13:53 Dose: 20 gm - Exam Quality Assessment: DVT Prophylaxis General: Alert, Oriented, Cooperative, No Acute Distress HEENT: Pupils Equal, Pupils Reactive, EOMI Neck: Supple, Trachea Midline, No JVD Lungs: Normal Respiratory Effort Cardiovascular: Regular Rate, Regular Rhythm GI/Abdominal Exam: Normal Bowel Sounds, Soft, Non-Tender, No Organomegaly, No Distention (Female) Exam: Deferred Back Exam: Normal Inspection Extremities: Normal Inspection Skin: Warm Neurological: No New Focal Deficit Psy/Mental Status: Alert, Normal Affect, Normal Mood - Problem List & Annotations (1) Chronic liver disease and cirrhosis SNOMED Code(s): 231312244 Code(s): K74.60 - UNSPECIFIED CIRRHOSIS OF LIVER; K76.9 - LIVER DISEASE, UNSPECIFIED Status: Acute Current Visit: Yes (2) Hyperammonemia SNOMED Code(s): 1968206 Code(s): E72.20 - DISORDER OF UREA CYCLE METABOLISM, UNSPECIFIED Status: Acute Current Visit: Yes (3) Leukopenia SNOMED Code(s): 94778196 Code(s): D72.819 - DECREASED WHITE BLOOD CELL COUNT, UNSPECIFIED Status: Acute Current Visit: Yes (4) CKD (chronic kidney disease) SNOMED Code(s): 281722128 Code(s): N18.9 - CHRONIC KIDNEY DISEASE, UNSPECIFIED Status: Chronic Priority: Medium Current Visit: Yes Qualifiers: Chronic kidney disease stage: stage 1 Qualified Code(s): N18.1 - Chronic kidney disease, stage 1 (5) Hepatic encephalopathy SNOMED Code(s): 56676387 Code(s): K72.90 - HEPATIC FAILURE, UNSPECIFIED WITHOUT COMA Status: Chronic Priority: High Current Visit: Yes (6) Hyperglycemia due to type 2 diabetes mellitus SNOMED Code(s): 780931234571178 Code(s): E11.65 - TYPE 2 DIABETES MELLITUS WITH HYPERGLYCEMIA Status: Chronic Priority: High Current Visit: Yes Qualifiers: Diabetes mellitus termite exterminator helper insulin use: with termite exterminator helper use Qualified Code( s): E11.65 - Type 2 diabetes mellitus with hyperglycemia; Z79.4 - exterminator helper ( current) use of insulin; Z79.4 - exterminator helper (current) use of insulin; Z79.4 - exterminator helper (current) use of insulin; Z79.4 - exterminator helper (current) use of insulin (7) Medical non-compliance SNOMED Code(s): 865448191 Code(s): Z91.19 - PATIENT'S NONCOMPLIANCE W OTH MEDICAL TREATMENT AND REGIMEN Status: Chronic Priority: High Current Visit: Yes - Problem List Review Problem List Initiated/Reviewed/Updated: Yes - My Orders Last 24 Hours: My Active Orders 11/06/17 17:34 Activity as Tolerated [RC] QSHIFT 11/06/17 17:42 Accu Check [Blood Glucose Check, Bedside] [RC] QIDACANDBED Dextrose 50% in Water 50 ml IVPUSH ASDIRECTED PRN 11/06/17 17:44 Consult to Occupational Therapy [OT Evaluation and Treatment] [CONS] Routine Consult to Physical Therapy [PT Evaluation and Treatment] [CONS] Routine 11/06/17 17:45 Antiembolic Devices [RC] BID Consult to Case Management [CONS] Routine MARK Hose [Antiembolic Hose] [OM.PC] Routine 11/06/17 18:30 Lactulose [Cephulac] 40 gm PO TID 11/06/17 18:39 Resuscitation Status Routine 11/06/17 21:00 DULoxetine [Cymbalta] 60 mg PO BID Nortriptyline 25 mg PO BEDTIME Pantoprazole [ProTONIX] 40 mg PO BID Pregabalin [Lyrica] 150 mg PO BID Rifaximin [Xifaxan] 550 mg PO BID Ursodiol 600 cap PO BID 11/06/17 22:00 Insulin Aspart [NovoLOG] See Protocol SUBCUT QIDACANDBED 11/07/17 01:22 Acetaminophen [Tylenol] 650 mg PO Q4H PRN 11/07/17 09:00 Furosemide [Lasix] 20 mg PO DAILY Magnesium Oxide 400 mg PO DAILY Nadolol [Naldol] 20 mg PO DAILY Spironolactone [Aldactone] 50 mg PO DAILY metroNIDAZOLE [Flagyl] 500 mg PO DAILY 11/07/17 18:00 Warfarin [Coumadin] 2.5 mg PO SuTuThSa@1800 11/07/17 Breakfast Clear Liquid Diet [DIET] 11/08/17 05:00 AMMONIA VENOUS [CHEM] DAILY BMP [BASIC METABOLIC PANEL,BMP] [CHEM] DAILY CBC WITH AUTO DIFF [HEME] DAILY CRP [C-REACTIVE PROTEIN] [CHEM] DAILY MAGNESIUM [CHEM] DAILY 11/09/17 05:00 AMMONIA VENOUS [CHEM] DAILY BMP [BASIC METABOLIC PANEL,BMP] [CHEM] DAILY CBC WITH AUTO DIFF [HEME] DAILY CRP [C-REACTIVE PROTEIN] [CHEM] DAILY MAGNESIUM [CHEM] DAILY 11/09/17 18:00 Warfarin [Coumadin] 5 mg PO MoWeFr@1800 11/10/17 05:00 AMMONIA VENOUS [CHEM] DAILY BMP [BASIC METABOLIC PANEL,BMP] [CHEM] DAILY CBC WITH AUTO DIFF [HEME] DAILY CRP [C-REACTIVE PROTEIN] [CHEM] DAILY MAGNESIUM [CHEM] DAILY 11/11/17 09:00 Dulaglutide [Trulicity] 1.5 mg SQ We@0900 - Plan Plan:: Impression: Acute mental status change Hepatic encephalopathy CLD with cirrhosis Hyperglycemia with DM type II Medical noncompliance Chronic Leukopenia HTN History of coagulopathy UI GERD Depression Plan: Clear liquids advance as tolerated-->1999 ADA Resume Lactulose, increase amount and frequency, 24 hours Home meds Insulin SS Cirrhotic diet education Daily labs DVT/GI prophylaxis Consult PT/OT/CM
[2017-11-07] MEDS: Ibuprofen 600 MG Tab PO PRN ×2 (12:40→20:45)
[2017-11-07] MEDS: URSODIOL PO SCH (14:32)
[2017-11-07] MEDS: Warfarin 2.5 MG Tab PO SCH (17:31)
[2017-11-07] MEDS: Nortriptyline 25 MG Cap PO SCH (20:15)
[2017-11-08] MEDS: Insulin Aspart 100 Units/ML 3 ML Pen SUBCUT SCH ×4 (10:14→21:46)
[2017-11-08] MEDS: Lactulose Soln 10 GM/15 ML 30 ML UD Cup PO SCH ×2 (10:18→21:46)
[2017-11-08] MEDS: Magnesium Oxide 400 MG Tab PO SCH (10:18)
[2017-11-08] MEDS: metroNIDAZOLE 500 MG Tab PO SCH (10:20)
[2017-11-08] MEDS: Spironolactone 25 MG Tab PO SCH (10:20)
[2017-11-08] MEDS: DULoxetine 30 MG Cap PO SCH ×2 (10:20→21:46)
[2017-11-08] MEDS: Rifaximin 550 MG Tab PO SCH ×2 (10:20→21:46)
[2017-11-08] MEDS: Furosemide 20 MG Tab PO SCH (10:21)
[2017-11-08] MEDS: Pregabalin 75 MG Cap PO SCH ×2 (10:21→21:46)
[2017-11-08] MEDS: Pantoprazole 40 MG Tab.CR PO SCH ×2 (10:21→21:46)
[2017-11-08] MEDS: Ibuprofen 600 MG Tab PO PRN ×2 (10:28→18:32)
--- NOTE | 2017-11-08 10:49 | PCM.PN ---
- General Info Date of Service: 11/08/17 Functional Status: Reports: Pain Controlled, Tolerating Diet, Ambulating, Urinating - Review of Systems General: Reports: No Symptoms HEENT: Reports: No Symptoms Pulmonary: Reports: No Symptoms Cardiovascular: Reports: No Symptoms Gastrointestinal: Reports: No Symptoms Genitourinary: Reports: No Symptoms Musculoskeletal: Reports: No Symptoms Skin: Reports: No Symptoms Neurological: Reports: No Symptoms Psychiatric: Reports: No Symptoms - Patient Data Vitals - Most Recent: Last Vital Signs Temp 36.3 C 11/08/17 07:26 Pulse 73 11/08/17 10:18 Resp 18 11/08/17 07:26 BP 107/73 11/08/17 10:18 Pulse Ox 94 L 11/08/17 07:26 Weight - Most Recent: 104.644 kg I&O - Last 24 Hours: Intake & Output 11/07/17 11/08/17 11/08/17 22:59 06:59 14:59 Intake Total 1600 800 Output Total 800 525 Balance 800 275 Lab Results Last 24 Hours: Laboratory Results - last 24 hr 11/07/17 11/07/17 11/07/17 Range/Units 10:57 12:14 16:38 WBC (3.98-10.04) K/mm3 RBC (3.98-5.22) M/mm3 Hgb (11.2-15.7) gm/L Hct (34.1-44.9) % MCV (79.4-94.8) fl MCH (25.6-32.2) pg MCHC (32.2-35.5) g/dl RDW Std Deviation (36.4-46.3) fL Plt Count (182-369) K/mm3 MPV (9.4-12.3) fl Neut % (Auto) (34.0-71.1) % Lymph % (Auto) (19.3-51.7) % [place] % (Auto) (4.7-12.5) % Eos % (Auto) (0.7-5.8) Baso % (Auto) (0.1-1.2) % Neut # (Auto) (1.56-6.13) K/mm3 Lymph # (Auto) (1.18-3.74) K/mm3 [place] # (Auto) (0.24-0.36) K/mm3 Eos # (Auto) (0.04-0.36) K/mm3 Baso # (Auto) (0.01-0.08) K/mm3 Manual Slide Review PT (8.0-13.0) SECONDS INR Sodium (136-145) mEq/L Potassium (3.5-5.1) mEq/L Chloride (98-107) mEq/L Carbon Dioxide (21-32) mEq/L Anion Gap (5-15) BUN (7-18) mg/dL Creatinine (0.55-1.02) mg/dL Est Cr Clr Drug Dosing mL/min Estimated GFR (MDRD) (>60) mL/min BUN/Creatinine Ratio (14-18) Glucose (74-106) mg/dL POC Glucose 381 H 395 H 178 H (70-105) mg/dL Calcium (8.5-10.1) mg/dL Magnesium (1.8-2.4) mg/dl Ammonia (11-32) umol/L C-Reactive Protein (<1.0) mg/dL 11/07/17 11/08/17 11/08/17 Range/Units 20:34 06:00 06:00 WBC 2.07 L* (3.98-10.04) K/mm3 RBC 3.61 L (3.98-5.22) M/mm3 Hgb 10.5 L (11.2-15.7) gm/L Hct 32.8 L (34.1-44.9) % MCV 90.9 (79.4-94.8) fl MCH 29.1 (25.6-32.2) pg MCHC 32.0 L (32.2-35.5) g/dl RDW Std Deviation 53.2 H (36.4-46.3) fL Plt Count 82 L (182-369) K/mm3 MPV 10.9 (9.4-12.3) fl Neut % (Auto) 46.0 (34.0-71.1) % Lymph % (Auto) 36.2 (19.3-51.7) % [place] % (Auto) 11.6 (4.7-12.5) % Eos % (Auto) 4.8 (0.7-5.8) Baso % (Auto) 1.4 H (0.1-1.2) % Neut # (Auto) 0.95 L (1.56-6.13) K/mm3 Lymph # (Auto) 0.75 L (1.18-3.74) K/mm3 [place] # (Auto) 0.24 (0.24-0.36) K/mm3 Eos # (Auto) 0.10 (0.04-0.36) K/mm3 Baso # (Auto) 0.03 (0.01-0.08) K/mm3 Manual Slide Review Abnormal smear PT (8.0-13.0) SECONDS INR Sodium 136 (136-145) mEq/L Potassium 3.7 (3.5-5.1) mEq/L Chloride 104 (98-107) mEq/L Carbon Dioxide 28 (21-32) mEq/L Anion Gap 7.7 (5-15) BUN 18 (7-18) mg/dL Creatinine 1.5 H (0.55-1.02) mg/dL Est Cr Clr Drug Dosing 40.23 mL/min Estimated GFR (MDRD) 35 (>60) mL/min BUN/Creatinine Ratio 12.0 L (14-18) Glucose 187 H (74-106) mg/dL POC Glucose 211 H (70-105) mg/dL Calcium 8.6 (8.5-10.1) mg/dL Magnesium 2.0 (1.8-2.4) mg/dl Ammonia (11-32) umol/L C-Reactive Protein 0.6 (<1.0) mg/dL 11/08/17 11/08/17 11/08/17 Range/Units 06:00 06:00 06:33 WBC (3.98-10.04) K/mm3 RBC (3.98-5.22) M/mm3 Hgb (11.2-15.7) gm/L Hct (34.1-44.9) % MCV (79.4-94.8) fl MCH (25.6-32.2) pg MCHC (32.2-35.5) g/dl RDW Std Deviation (36.4-46.3) fL Plt Count (182-369) K/mm3 MPV (9.4-12.3) fl Neut % (Auto) (34.0-71.1) % Lymph % (Auto) (19.3-51.7) % [place] % (Auto) (4.7-12.5) % Eos % (Auto) (0.7-5.8) Baso % (Auto) (0.1-1.2) % Neut # (Auto) (1.56-6.13) K/mm3 Lymph # (Auto) (1.18-3.74) K/mm3 [place] # (Auto) (0.24-0.36) K/mm3 Eos # (Auto) (0.04-0.36) K/mm3 Baso # (Auto) (0.01-0.08) K/mm3 Manual Slide Review PT 25.0 H (8.0-13.0) SECONDS INR 2.32 Sodium (136-145) mEq/L Potassium (3.5-5.1) mEq/L Chloride (98-107) mEq/L Carbon Dioxide (21-32) mEq/L Anion Gap (5-15) BUN (7-18) mg/dL Creatinine (0.55-1.02) mg/dL Est Cr Clr Drug Dosing mL/min Estimated GFR (MDRD) (>60) mL/min BUN/Creatinine Ratio (14-18) Glucose (74-106) mg/dL POC Glucose 190 H (70-105) mg/dL Calcium (8.5-10.1) mg/dL Magnesium (1.8-2.4) mg/dl Ammonia 61 H (11-32) umol/L C-Reactive Protein (<1.0) mg/dL Med Orders - Current: Current Medications Acetaminophen (Tylenol) 650 mg PO Q4H PRN PRN Reason: Pain Last Admin: 11/07/17 10:17 Dose: 650 mg Dextrose/Water (Dextrose 50% In Water) 50 ml IVPUSH ASDIRECTED PRN PRN Reason: Hypoglycemia Duloxetine HCl (Cymbalta) 60 mg PO BID [facility] Last Admin: 11/08/17 10:20 Dose: 60 mg Furosemide (Lasix) 20 mg PO DAILY [facility] Last Admin: 11/08/17 10:21 Dose: 20 mg Ibuprofen (Motrin) 600 mg PO Q8H PRN PRN Reason: Pain Last Admin: 11/08/17 10:28 Dose: 600 mg Insulin Aspart (Novolog) 0 unit SUBCUT QIDACANDBED [facility] PRN Reason: Protocol Last Admin: 11/08/17 10:14 Dose: 3 units Lactulose (Cephulac) 20 gm PO BID [facility] Last Admin: 11/08/17 10:18 Dose: 20 gm Magnesium Oxide (Magnesium Oxide) 400 mg PO DAILY [facility] Last Admin: 11/08/17 10:18 Dose: 400 mg Metronidazole (Flagyl) 500 mg PO DAILY [facility] Last Admin: 11/08/17 10:20 Dose: 500 mg Nadolol (Naldol) 20 mg PO DAILY [facility] Last Admin: 11/08/17 10:18 Dose: 20 mg Nortriptyline HCl (Nortriptyline) 25 mg PO BEDTIME [facility] Last Admin: 11/07/17 20:15 Dose: 25 mg Pantoprazole Sodium (Protonix) 40 mg PO BID [facility] Last Admin: 11/08/17 10:21 Dose: 40 mg Pregabalin (Lyrica) 150 mg PO BID [facility] Last Admin: 11/08/17 10:21 Dose: 150 mg Rifaximin (Xifaxan) 550 mg PO BID [facility] Last Admin: 11/08/17 10:20 Dose: 550 mg Sodium Chloride (Saline Flush) 10 ml FLUSH ASDIRECTED PRN PRN Reason: Keep Vein Open Last Admin: 11/06/17 12:44 Dose: 10 ml Spironolactone (Aldactone) 50 mg PO DAILY [facility] Last Admin: 11/08/17 10:20 Dose: 50 mg Warfarin Sodium (Coumadin) 5 mg PO MoWeFr@1800 [facility] Warfarin Sodium (Coumadin) 2.5 mg PO SuTuThSa@1800 [facility] Last Admin: 11/07/17 17:31 Dose: 2.5 mg Discontinued Medications Sodium Chloride (Normal Saline) 1,000 mls @ 1,000 mls/hr IV .BOLUS [facility] Last Admin: 11/06/17 12:43 Dose: 1,000 mls/hr Sodium Chloride (Normal Saline) 1,000 mls @ 1,000 mls/hr IV ONETIME ONE Stop: 11/06/17 18:59 Last Admin: 11/06/17 18:02 Dose: 1,000 mls/hr Insulin Aspart (Novolog) 0 unit SUBCUT QIDACANDBED [facility] PRN Reason: Protocol Last Admin: 11/07/17 14:32 Dose: Not Given Lactulose (Cephulac) 20 gm PO ONETIME ONE Stop: 11/06/17 13:13 Last Admin: 11/06/17 13:53 Dose: 20 gm Lactulose (Cephulac) 40 gm PO TID [facility] Last Admin: 11/07/17 09:14 Dose: 40 gm Non-Formulary Medication (Dulaglutide [Trulicity]) 1.5 mg SQ We@0900 [facility] Non-Formulary Medication (Ursodiol) 600 cap PO BID [facility] Last Admin: 11/07/17 14:32 Dose: Not Given - Exam Quality Assessment: DVT Prophylaxis General: Alert, Oriented, Cooperative, No Acute Distress HEENT: Pupils Equal, Pupils Reactive, EOMI Neck: Supple, Trachea Midline Lungs: Clear to Auscultation, Normal Respiratory Effort Cardiovascular: Regular Rate, Regular Rhythm GI/Abdominal Exam: Normal Bowel Sounds, Soft, Non-Tender, No Organomegaly, No Distention (Female) Exam: Deferred Back Exam: Normal Inspection Extremities: Normal Inspection, Normal Capillary Refill Skin: Warm Neurological: No New Focal Deficit Psy/Mental Status: Alert, Normal Affect, Normal Mood - Problem List & Annotations (1) Chronic liver disease and cirrhosis SNOMED Code(s): 003422268 Code(s): K74.60 - UNSPECIFIED CIRRHOSIS OF LIVER; K76.9 - LIVER DISEASE, UNSPECIFIED Status: Acute Current Visit: Yes (2) Hyperammonemia SNOMED Code(s): 9663042 Code(s): E72.20 - DISORDER OF UREA CYCLE METABOLISM, UNSPECIFIED Status: Acute Current Visit: Yes (3) Leukopenia SNOMED Code(s): 89768089 Code(s): D72.819 - DECREASED WHITE BLOOD CELL COUNT, UNSPECIFIED Status: Acute Current Visit: Yes (4) CKD (chronic kidney disease) SNOMED Code(s): 250778707 Code(s): N18.9 - CHRONIC KIDNEY DISEASE, UNSPECIFIED Status: Chronic Priority: Medium Current Visit: Yes Qualifiers: Chronic kidney disease stage: stage 1 Qualified Code(s): N18.1 - Chronic kidney disease, stage 1 (5) Hepatic encephalopathy SNOMED Code(s): 36337362 Code(s): K72.90 - HEPATIC FAILURE, UNSPECIFIED WITHOUT COMA Status: Chronic Priority: High Current Visit: Yes (6) Hyperglycemia due to type 2 diabetes mellitus SNOMED Code(s): 515396754892794 Code(s): E11.65 - TYPE 2 DIABETES MELLITUS WITH HYPERGLYCEMIA Status: Chronic Priority: High Current Visit: Yes Qualifiers: Diabetes mellitus detention insulin use: with detention use Qualified Code( s): E11.65 - Type 2 diabetes mellitus with hyperglycemia; Z79.4 - terminal makeup operator ( current) use of insulin; Z79.4 - intermediate (current) use of insulin; Z79.4 - terminal makeup operator (current) use of insulin; Z79.4 - intermediate (current) use of insulin (7) Medical non-compliance SNOMED Code(s): 582408490 Code(s): Z91.19 - PATIENT'S NONCOMPLIANCE W OTH MEDICAL TREATMENT AND REGIMEN Status: Chronic Priority: High Current Visit: Yes - Problem List Review Problem List Initiated/Reviewed/Updated: Yes - My Orders Last 24 Hours: My Active Orders 11/07/17 12:00 Insulin Aspart [NovoLOG] See Protocol SUBCUT QIDACANDBED 11/07/17 12:03 Ibuprofen [Motrin] 600 mg PO Q8H PRN 11/07/17 18:00 Warfarin [Coumadin] 2.5 mg PO SuTuThSa@1800 11/07/17 Lunch ADA Diabetic [[employer] Diet] [DIET] 11/08/17 09:00 Lactulose [Cephulac] 20 gm PO BID 11/08/17 10:43 GLUCOSE,POC [POC] Routine 11/09/17 05:00 AMMONIA VENOUS [CHEM] DAILY BMP [BASIC METABOLIC PANEL,BMP] [CHEM] DAILY CBC WITH AUTO DIFF [HEME] DAILY CRP [C-REACTIVE PROTEIN] [CHEM] DAILY INR,PT,PROTHROMBIN TIME [COAG] DAILY MAGNESIUM [CHEM] DAILY 11/09/17 18:00 Warfarin [Coumadin] 5 mg PO MoWeFr@1800 11/10/17 05:00 AMMONIA VENOUS [CHEM] DAILY BMP [BASIC METABOLIC PANEL,BMP] [CHEM] DAILY CBC WITH AUTO DIFF [HEME] DAILY CRP [C-REACTIVE PROTEIN] [CHEM] DAILY MAGNESIUM [CHEM] DAILY - Plan Plan:: Impression: Acute mental status change Hepatic encephalopathy CLD with cirrhosis Hyperglycemia with DM type II Medical noncompliance Chronic Leukopenia HTN History of coagulopathy UI GERD Depression Plan: Clear liquids advance as tolerated-->1999 ADA Lactulose-->home dose Home meds Insulin SS Cirrhotic diet education Daily labs DVT/GI prophylaxis Consult PT/OT/CM DC 11/09/17
[2017-11-08] MEDS: Warfarin 2.5 MG Tab PO SCH (18:29)
[2017-11-08] MEDS: Nortriptyline 25 MG Cap PO SCH (21:46)
[2017-11-09] MEDS: metroNIDAZOLE 500 MG Tab PO SCH (08:21)
[2017-11-09] MEDS: Lactulose Soln 10 GM/15 ML 30 ML UD Cup PO SCH (08:21)
[2017-11-09] MEDS: DULoxetine 30 MG Cap PO SCH (08:21)
[2017-11-09] MEDS: Spironolactone 25 MG Tab PO SCH (08:21)
[2017-11-09] MEDS: Magnesium Oxide 400 MG Tab PO SCH (08:21)
[2017-11-09] MEDS: Rifaximin 550 MG Tab PO SCH (08:22)
[2017-11-09] MEDS: Furosemide 20 MG Tab PO SCH (08:22)
[2017-11-09] MEDS: Pregabalin 75 MG Cap PO SCH (08:22)
[2017-11-09] MEDS: Pantoprazole 40 MG Tab.CR PO SCH (08:24)
[2017-11-09] MEDS: Insulin Aspart 100 Units/ML 3 ML Pen SUBCUT SCH ×2 (08:25→11:03)
[2017-11-09 08:36] VITALS: BP 114/60
--- NOTE | 2017-11-09 14:42 | PCM.DCSUM1 ---
Discharge Summary - Hospital Course Free Text/Narrative:: 62 year old female with PRTAT presents (within 12 days after a recent discharge from [facility]) for acute confusion after failing to take Lactulose as prescribed. The medical non compliance was addressed with the patient and her family in the ED with Flory SWIFT and the hospitalist on duty. It was discovered that the patient had only taken 3-4 doses of Lactulose this week. It is a liquid and therefore not included with her medication tray. The patient and her spouse admit to not remembering. A brief discussion about her diabetic medication as well as cirrhotic medications occurred in the ED. Suggestions were made regarding remembering her medications to prevent abrupt change in mental status. Everyone present including her daughter, spouse and the patient voiced commitment to improving their level of mindfulness. Thus committed to being adherent to the current medical regimen. - Discharge Data Discharge Date: 11/09/17 Discharge Disposition: Home, Self-Care 01 Condition: Good - Discharge Diagnosis/Problem(s) (1) Chronic liver disease and cirrhosis SNOMED Code(s): 981552285 ICD Code: K74.60 - UNSPECIFIED CIRRHOSIS OF LIVER; K76.9 - LIVER DISEASE, UNSPECIFIED Status: Acute Current Visit: Yes (2) Hyperammonemia SNOMED Code(s): 5126748 ICD Code: E72.20 - DISORDER OF UREA CYCLE METABOLISM, UNSPECIFIED Status: Acute Current Visit: Yes (3) Leukopenia SNOMED Code(s): 94212078 ICD Code: D72.819 - DECREASED WHITE BLOOD CELL COUNT, UNSPECIFIED Status: Acute Current Visit: Yes (4) CKD (chronic kidney disease) SNOMED Code(s): 564867884 ICD Code: N18.9 - CHRONIC KIDNEY DISEASE, UNSPECIFIED Status: Chronic Priority: Medium Current Visit: Yes Qualifiers: Chronic kidney disease stage: stage 1 Qualified Code(s): N18.1 - Chronic kidney disease, stage 1 (5) Hepatic encephalopathy SNOMED Code(s): 10804635 ICD Code: K72.90 - HEPATIC FAILURE, UNSPECIFIED WITHOUT COMA Status: Chronic Priority: High Current Visit: Yes (6) Hyperglycemia due to type 2 diabetes mellitus SNOMED Code(s): 604035012674267 ICD Code: E11.65 - TYPE 2 DIABETES MELLITUS WITH HYPERGLYCEMIA Status: Chronic Priority: High Current Visit: Yes Qualifiers: Diabetes mellitus [employer] insulin use: with [employer] use Qualified Code( s): E11.65 - Type 2 diabetes mellitus with hyperglycemia; Z79.4 - supervisor intermediates ( current) use of insulin; Z79.4 - supervisor intermediates (current) use of insulin; Z79.4 - [facility] (current) use of insulin; Z79.4 - supervisor intermediates (current) use of insulin (7) Medical non-compliance SNOMED Code(s): 560967522 ICD Code: Z91.19 - PATIENT'S NONCOMPLIANCE W OTH MEDICAL TREATMENT AND REGIMEN Status: Chronic Priority: High Current Visit: Yes - Patient Summary/Data Consults: Consultations 11/06/17 17:44 Consult to Occupational Therapy [OT Evaluation and Treatment] [CONS] Routine Consult to Physical Therapy [PT Evaluation and Treatment] [CONS] Routine 11/06/17 17:45 Consult to Case Management [CONS] Routine - Patient Instructions Diet: Usual Diet as Tolerated Activity: As Tolerated Driving: Do Not Drive Showering/Bathing: May Shower Notify Provider of: Fever, Increased Pain, Nausea and/or Vomiting - Discharge Plan Home Medications: Home Meds Aloe Vera 25 mg PO DAILY 01/08/14 [History] DULoxetine [Cymbalta] 60 mg PO BID 01/08/14 [History] Furosemide [Lasix] 20 mg PO DAILY 01/08/14 [History] Nadolol [Naldol] 20 mg PO DAILY 01/08/14 [History] Pantoprazole [ProTONIX] 40 mg PO BID 01/08/14 [History] Spironolactone 50 mg PO DAILY 01/08/14 [History] Ursodiol 600 cap PO BID 01/08/14 [History] Lyrica. 150 mg PO BID 05/12/14 [History] Nortriptyline 25 mg PO BEDTIME 05/12/14 [History] L Gasseri/B Bifidum/B Longum [[facility] Capsule] 1 cap PO DAILY 03/21 [History] Rifaximin [Xifaxan] 550 mg PO BID 01/11/15 [History] Warfarin Sodium [Jantoven] 2.5 mg PO SUTUTHSA 10/23/17 [History] Warfarin Sodium [Jantoven] 5 mg PO MOWEFR 10/23/17 [History] Insulin Aspart [NovoLOG] 0 unit SUBCUT QIDACANDBED #1 pen 10/27/17 [Rx] Lactulose [Cephulac] 20 gm PO BID #1 bottle 10/27/17 [Rx] Magnesium Oxide 400 mg PO DAILY #30 tablet 10/27/17 [Rx] Dulaglutide [Trulicity] 1.5 mg SQ WEEKLY 11/06/17 [History] metroNIDAZOLE [Flagyl] 500 mg PO DAILY 11/06/17 [History] Patient Handouts: Hepatic Encephalopathy, Chronic Kidney Disease, Adult, Easy- to-Read Forms: ED Department Discharge Referrals: Jamshid March MD [Primary Care Provider] - 11/16/17 2:30 pm (Please follow-up with your primary care provider, Dr. March, on ThursdayNovember 16 at 230pm. ) - Discharge Summary/Plan Comment DC Time >30 min.: No Discharge Summary/Plan Comment: Impression: Acute mental status change Hepatic encephalopathy CLD with cirrhosis Hyperglycemia with DM type II Medical noncompliance Chronic Leukopenia HTN History of coagulopathy GERD Depression Plan: Clear liquids advance as tolerated-->1999 ADA Lactulose-->home dose Home meds Insulin SS Cirrhotic diet education Daily labs DVT/GI prophylaxis Consult PT/OT/CM - General Info Date of Service: 11/06/17 Functional Status: Reports: Tolerating Diet, Ambulating, Urinating - Review of Systems General: Reports: No Symptoms HEENT: Reports: No Symptoms Pulmonary: Reports: No Symptoms Cardiovascular: Reports: No Symptoms Gastrointestinal: Reports: No Symptoms Genitourinary: Reports: No Symptoms Musculoskeletal: Reports: No Symptoms Skin: Reports: No Symptoms Neurological: Reports: No Symptoms Psychiatric: Reports: No Symptoms - Patient Data Vitals - Most Recent: Last Vital Signs Temp 36.8 C 11/09/17 08:23 Pulse 75 11/09/17 08:23 Resp 16 11/09/17 08:23 BP 114/60 11/09/17 08:23 Pulse Ox 95 11/09/17 12:00 Weight - Most Recent: 104.689 kg I&O - Last 24 hours: Intake & Output 11/08/17 11/09/17 11/09/17 22:59 06:59 14:59 Intake Total 1600 1474 0 Output Total 2800 1700 Balance -1200 -226 0 Lab Results - Last 24 hrs: Laboratory Results - last 24 hr 11/08/17 11/08/17 11/09/17 Range/Units 16:59 20:50 05:45 WBC 2.31 L* (3.98-10.04) K/mm3 RBC 3.51 L (3.98-5.22) M/mm3 Hgb 10.3 L (11.2-15.7) gm/L Hct 31.8 L (34.1-44.9) % MCV 90.6 (79.4-94.8) fl MCH 29.3 (25.6-32.2) pg MCHC 32.4 (32.2-35.5) g/dl RDW Std Deviation 52.1 H (36.4-46.3) fL Plt Count 82 L (182-369) K/mm3 MPV 10.8 (9.4-12.3) fl Neut % (Auto) 56.3 (34.0-71.1) % Lymph % (Auto) 29.4 (19.3-51.7) % [place] % (Auto) 7.8 (4.7-12.5) % Eos % (Auto) 4.8 (0.7-5.8) Baso % (Auto) 1.3 H (0.1-1.2) % Neut # (Auto) 1.30 L (1.56-6.13) K/mm3 Lymph # (Auto) 0.68 L (1.18-3.74) K/mm3 [place] # (Auto) 0.18 L (0.24-0.36) K/mm3 Eos # (Auto) 0.11 (0.04-0.36) K/mm3 Baso # (Auto) 0.03 (0.01-0.08) K/mm3 Manual Slide Review Abnormal smear PT (8.0-13.0) SECONDS INR Sodium (136-145) mEq/L Potassium (3.5-5.1) mEq/L Chloride (98-107) mEq/L Carbon Dioxide (21-32) mEq/L Anion Gap (5-15) BUN (7-18) mg/dL Creatinine (0.55-1.02) mg/dL Est Cr Clr Drug Dosing mL/min Estimated GFR (MDRD) (>60) mL/min BUN/Creatinine Ratio (14-18) Glucose (74-106) mg/dL POC Glucose 230 H 165 H (70-105) mg/dL Calcium (8.5-10.1) mg/dL Magnesium (1.8-2.4) mg/dl Ammonia (11-32) umol/L C-Reactive Protein (<1.0) mg/dL 11/09/17 11/09/17 11/09/17 Range/Units 05:45 05:45 05:45 WBC (3.98-10.04) K/mm3 RBC (3.98-5.22) M/mm3 Hgb (11.2-15.7) gm/L Hct (34.1-44.9) % MCV (79.4-94.8) fl MCH (25.6-32.2) pg MCHC (32.2-35.5) g/dl RDW Std Deviation (36.4-46.3) fL Plt Count (182-369) K/mm3 MPV (9.4-12.3) fl Neut % (Auto) (34.0-71.1) % Lymph % (Auto) (19.3-51.7) % [place] % (Auto) (4.7-12.5) % Eos % (Auto) (0.7-5.8) Baso % (Auto) (0.1-1.2) % Neut # (Auto) (1.56-6.13) K/mm3 Lymph # (Auto) (1.18-3.74) K/mm3 [place] # (Auto) (0.24-0.36) K/mm3 Eos # (Auto) (0.04-0.36) K/mm3 Baso # (Auto) (0.01-0.08) K/mm3 Manual Slide Review PT 20.7 H (8.0-13.0) SECONDS INR 1.92 Sodium 137 (136-145) mEq/L Potassium 3.7 (3.5-5.1) mEq/L Chloride 106 (98-107) mEq/L Carbon Dioxide 28 (21-32) mEq/L Anion Gap 6.7 (5-15) BUN 19 H (7-18) mg/dL Creatinine 1.3 H (0.55-1.02) mg/dL Est Cr Clr Drug Dosing 46.42 mL/min Estimated GFR (MDRD) 42 (>60) mL/min BUN/Creatinine Ratio 14.6 (14-18) Glucose 186 H (74-106) mg/dL POC Glucose (70-105) mg/dL Calcium 8.3 L (8.5-10.1) mg/dL Magnesium 2.0 (1.8-2.4) mg/dl Ammonia 78 H (11-32) umol/L C-Reactive Protein 0.6 (<1.0) mg/dL 11/09/17 11/09/17 Range/Units 06:07 10:53 WBC (3.98-10.04) K/mm3 RBC (3.98-5.22) M/mm3 Hgb (11.2-15.7) gm/L Hct (34.1-44.9) % MCV (79.4-94.8) fl MCH (25.6-32.2) pg MCHC (32.2-35.5) g/dl RDW Std Deviation (36.4-46.3) fL Plt Count (182-369) K/mm3 MPV (9.4-12.3) fl Neut % (Auto) (34.0-71.1) % Lymph % (Auto) (19.3-51.7) % [place] % (Auto) (4.7-12.5) % Eos % (Auto) (0.7-5.8) Baso % (Auto) (0.1-1.2) % Neut # (Auto) (1.56-6.13) K/mm3 Lymph # (Auto) (1.18-3.74) K/mm3 [place] # (Auto) (0.24-0.36) K/mm3 Eos # (Auto) (0.04-0.36) K/mm3 Baso # (Auto) (0.01-0.08) K/mm3 Manual Slide Review PT (8.0-13.0) SECONDS INR Sodium (136-145) mEq/L Potassium (3.5-5.1) mEq/L Chloride (98-107) mEq/L Carbon Dioxide (21-32) mEq/L Anion Gap (5-15) BUN (7-18) mg/dL Creatinine (0.55-1.02) mg/dL Est Cr Clr Drug Dosing mL/min Estimated GFR (MDRD) (>60) mL/min BUN/Creatinine Ratio (14-18) Glucose (74-106) mg/dL POC Glucose 181 H 305 H (70-105) mg/dL Calcium (8.5-10.1) mg/dL Magnesium (1.8-2.4) mg/dl Ammonia (11-32) umol/L C-Reactive Protein (<1.0) mg/dL Med Orders - Current: Current Medications Acetaminophen (Tylenol) 650 mg PO Q4H PRN PRN Reason: Pain Last Admin: 11/07/17 10:17 Dose: 650 mg Dextrose/Water (Dextrose 50% In Water) 50 ml IVPUSH ASDIRECTED PRN PRN Reason: Hypoglycemia Duloxetine HCl (Cymbalta) 60 mg PO BID [facility] Last Admin: 11/09/17 08:21 Dose: 60 mg Furosemide (Lasix) 20 mg PO DAILY [facility] Last Admin: 11/09/17 08:22 Dose: 20 mg Ibuprofen (Motrin) 600 mg PO Q8H PRN PRN Reason: Pain Last Admin: 11/08/17 18:32 Dose: 600 mg Insulin Aspart (Novolog) 0 unit SUBCUT QIDACANDBED [facility] PRN Reason: Protocol Last Admin: 11/09/17 11:03 Dose: 12 units Lactulose (Cephulac) 20 gm PO BID [facility] Last Admin: 11/09/17 08:21 Dose: 20 gm Magnesium Oxide (Magnesium Oxide) 400 mg PO DAILY [facility] Last Admin: 11/09/17 08:21 Dose: 400 mg Metronidazole (Flagyl) 500 mg PO DAILY [facility] Last Admin: 11/09/17 08:21 Dose: 500 mg Nadolol (Naldol) 20 mg PO DAILY [facility] Last Admin: 11/09/17 08:22 Dose: 20 mg Nortriptyline HCl (Nortriptyline) 25 mg PO BEDTIME [facility] Last Admin: 11/08/17 21:46 Dose: 25 mg Pantoprazole Sodium (Protonix) 40 mg PO BID [facility] Last Admin: 11/09/17 08:24 Dose: 40 mg Pregabalin (Lyrica) 150 mg PO BID [facility] Last Admin: 11/09/17 08:22 Dose: 150 mg Rifaximin (Xifaxan) 550 mg PO BID [facility] Last Admin: 11/09/17 08:22 Dose: 550 mg Sodium Chloride (Saline Flush) 10 ml FLUSH ASDIRECTED PRN PRN Reason: Keep Vein Open Last Admin: 11/06/17 12:44 Dose: 10 ml Spironolactone (Aldactone) 50 mg PO DAILY [facility] Last Admin: 11/09/17 08:21 Dose: 50 mg Warfarin Sodium (Coumadin) 5 mg PO MoWeFr@1800 [facility] Warfarin Sodium (Coumadin) 2.5 mg PO SuTuThSa@1800 [facility] Last Admin: 11/08/17 18:29 Dose: 2.5 mg Discontinued Medications Sodium Chloride (Normal Saline) 1,000 mls @ 1,000 mls/hr IV .BOLUS [facility] Last Admin: 11/06/17 12:43 Dose: 1,000 mls/hr Sodium Chloride (Normal Saline) 1,000 mls @ 1,000 mls/hr IV ONETIME ONE Stop: 11/06/17 18:59 Last Admin: 11/06/17 18:02 Dose: 1,000 mls/hr Insulin Aspart (Novolog) 0 unit SUBCUT QIDACANDBED [facility] PRN Reason: Protocol Last Admin: 11/07/17 14:32 Dose: Not Given Lactulose (Cephulac) 20 gm PO ONETIME ONE Stop: 11/06/17 13:13 Last Admin: 11/06/17 13:53 Dose: 20 gm Lactulose (Cephulac) 40 gm PO TID [facility] Last Admin: 11/07/17 09:14 Dose: 40 gm Non-Formulary Medication (Dulaglutide [Trulicity]) 1.5 mg SQ We@0900 [facility] Non-Formulary Medication (Ursodiol) 600 cap PO BID [facility] Last Admin: 11/07/17 14:32 Dose: Not Given - Exam Quality Assessment: Reports: DVT Prophylaxis General: Reports: Alert, Oriented, Cooperative, No Acute Distress HEENT: Reports: Pupils Equal, Pupils Reactive, EOMI Neck: Reports: Supple, Trachea Midline, No JVD Lungs: Reports: Normal Respiratory Effort Cardiovascular: Reports: Regular Rate, Regular Rhythm GI/Abdominal Exam: Normal Bowel Sounds, Soft, Non-Tender, No Organomegaly, No Distention (Female) Exam: Deferred Rectal (Female) Exam: Deferred Back Exam: Reports: Normal Inspection Extremities: Normal Inspection, Non-Tender, Normal Capillary Refill Skin: Reports: Warm, Dry Neurological: Reports: No New Focal Deficit Psy/Mental Status: Reports: Alert, Normal Affect, Normal Mood *Q Meaningful Use (DIS) - VTE *Q VTE Criteria *Q: - Stroke *Q Stroke Criteria *Q: - AMI *Q AMI Criteria *Q:
[2017-11-09] MEDS ORDERED: Warfarin 5 MG Tab PO SCH (18:00)
[2017-11-11] MEDS ORDERED: Non-Formulary Medication 1 Each (Dulaglutide [Trulicity] 1.5 MG) SQ SCH (09:00)
== END 2017-11-09 14:49 | disposition home or self-care (01) | DRG 423 ==
LOC: JD.ED 12:01 → JD.MS 16:01
PROVIDERS: ADMIT Internal Medicine Cardiovascular Disease; ATTEND Internal Medicine Cardiovascular Disease
DX: E72.20 Disorder of urea cycle metabolism, unspecified (principal); K72.90 Hepatic failure, unspecified without coma; E11.65 Type 2 diabetes mellitus with hyperglycemia; R41.82 Altered mental status, unspecified; D72.819 Decreased white blood cell count, unspecified; Z91.19 Patient's noncompliance with other medical treatment and regimen; I12.9 Hypertensive chronic kidney disease with stage 1 through stage 4 chronic kidney disease, or unspecified chronic kidney disease; E11.22 Type 2 diabetes mellitus with diabetic chronic kidney disease; N18.1 Chronic kidney disease, stage 1; Z86.718 Personal history of other venous thrombosis and embolism; K21.9 Gastro-esophageal reflux disease without esophagitis; R32 Unspecified urinary incontinence; M19.90 Unspecified osteoarthritis, unspecified site; E11.40 Type 2 diabetes mellitus with diabetic neuropathy, unspecified; F32.9 Major depressive disorder, single episode, unspecified; D64.9 Anemia, unspecified; Z87.891 Personal history of nicotine dependence; Z88.1 Allergy status to other antibiotic agents; Z91.041 Radiographic dye allergy status; Z91.040 Latex allergy status; Z79.01 Long term (current) use of anticoagulants; Z79.4 Long term (current) use of insulin; Z79.899 Other long term (current) drug therapy
CPT/HCPCS: 36415; 70450; 70450-26; 80048; 80053; 81001; 82009; 82140; 82800; 82962; 83735; 83930; 84484; 85025; 85610; 85730; 86140; 93005; 96360; 97116-GP; 97162-GP; 97165-GO; 99285; 99285-25; A9270-GY; G0480; J1815-GY; J7040; J7050